=== PATIENT | female | born 1950 | race Caucasian/White ===

== ENCOUNTER → 2017-05-03 | Outpatient (CLI) | payer MEDICARE ==
--- NOTE | 2017-05-07 09:01 | MM ---
Reason for exam: screening (asymptomatic). Last mammogram was performed 2 years and 11 months ago. History: Patient is postmenopausal. Family history of breast cancer in mother. Took estrogen for 20 years beginning at age 33. Took progesterone for 20 years beginning at age 33. Physical Findings: A clinical breast exam by your physician is recommended on an annual basis and results should be correlated with mammographic findings. MG 3D Screening Mammo W/Cad Bilateral CC and MLO view(s) were taken. Prior study comparison: June 01, 2014, right breast MG work up mamm w CAD RT. May 27, 2014, bilateral MG screening mammo w CAD. There are scattered fibroglandular densities. No suspicious findings. No significant changes when compared with prior studies. ASSESSMENT: Negative, BI-RAD 1 RECOMMENDATION: Routine screening mammogram of both breasts in 1 year.
== END | disposition home or self-care (01) ==
LOC: RADMAMWWP 09:45
PROVIDERS: ATTEND Family Medicine
DX: Z12.31 Encounter for screening mammogram for malignant neoplasm of breast (principal)
CPT/HCPCS: 77063; G0202

== ENCOUNTER → 2018-05-26 | Outpatient (CLI) | payer MEDICARE ==
--- NOTE | 2018-05-28 09:48 | MM ---
Reason for exam: screening (asymptomatic). Last mammogram was performed 1 year and 1 month ago. History: Patient is postmenopausal. Family history of breast cancer in mother. Took estrogen for 20 years beginning at age 33. Took progesterone for 20 years beginning at age 33. Physical Findings: A clinical breast exam by your physician is recommended on an annual basis and results should be correlated with mammographic findings. MG 3D Screening Mammo W/Cad Bilateral CC and MLO view(s) were taken. Prior study comparison: May 03, 2017, bilateral MG 3d screening mammo w/cad. June 01, 2014, right breast MG work up mamm w CAD RT. There are scattered fibroglandular densities. Benign oil cysts on the left. No significant changes when compared with prior studies. ASSESSMENT: Negative, BI-RAD 1 RECOMMENDATION: Routine screening mammogram of both breasts in 1 year.
== END | disposition home or self-care (01) ==
LOC: RADMAMWWP 06:45
PROVIDERS: ATTEND Family Medicine
DX: Z12.31 Encounter for screening mammogram for malignant neoplasm of breast (principal)
CPT/HCPCS: 77063; 77067

== ENCOUNTER → 2019-07-29 | Outpatient (CLI) | payer MEDICARE ==
--- NOTE | 2019-07-31 11:12 | MM ---
Reason for exam: screening (asymptomatic). Last mammogram was performed 1 year and 2 months ago. History: Patient is postmenopausal. Family history of breast cancer in mother. Took estrogen for 20 years beginning at age 33. Took progesterone for 20 years beginning at age 33. Physical Findings: A clinical breast exam by your physician is recommended on an annual basis and results should be correlated with mammographic findings. MG 3D Screening Mammo W/Cad Bilateral CC and MLO view(s) were taken. Prior study comparison: May 26, 2018, bilateral MG 3d screening mammo w/cad. May 03, 2017, bilateral MG 3d screening mammo w/cad. There are scattered fibroglandular densities. There is no discrete abnormality. No significant changes when compared with prior studies. ASSESSMENT: Negative, BI-RAD 1 RECOMMENDATION: Routine screening mammogram of both breasts in 1 year.
== END | disposition home or self-care (01) ==
LOC: RADMAMWWP 06:49
PROVIDERS: ATTEND Family Medicine
DX: Z12.31 Encounter for screening mammogram for malignant neoplasm of breast (principal); Z80.3 Family history of malignant neoplasm of breast
CPT/HCPCS: 77063; 77067

== ENCOUNTER → 2021-01-31 | Outpatient (CLI) | payer MEDICARE ==
--- NOTE | 2021-02-01 11:24 | MM ---
Reason for exam: screening (asymptomatic). Last mammogram was performed 1 year and 6 months ago. History: Patient is postmenopausal. Family history of breast cancer in mother. Took estrogen for 20 years beginning at age 33. Took progesterone for 20 years beginning at age 33. Physical Findings: A clinical breast exam by your physician is recommended on an annual basis and results should be correlated with mammographic findings. MG 3D Screening Mammo W/Cad Bilateral CC, MLO, and XCCL view(s) were taken. Prior study comparison: July 29, 2019, bilateral MG 3d screening mammo w/cad. May 26, 2018, bilateral MG 3d screening mammo w/cad. There are scattered fibroglandular densities. Stable benign calcifications. No significant changes when compared with prior studies. ASSESSMENT: Benign, BI-RAD 2 RECOMMENDATION: Routine screening mammogram of both breasts in 1 year.
== END | disposition home or self-care (01) ==
LOC: RADMAMWWP 07:06
PROVIDERS: ATTEND Family Medicine
DX: Z12.31 Encounter for screening mammogram for malignant neoplasm of breast (principal); Z80.3 Family history of malignant neoplasm of breast; Z78.0 Asymptomatic menopausal state
CPT/HCPCS: 77063; 77067

== ENCOUNTER 2022-07-17 09:53 | Inpatient (IN) | payer MEDICARE ==
[2022-07-17] MEDS ORDERED: SODIUM CHLORIDE 0.9% 500 ML 500 ML IV STA (10:12)
[2022-07-17] MEDS ORDERED: FAMOTIDINE 20 MG/2 ML VIAL IV STA (10:13)
--- NOTE | 2022-07-17 10:16 | ED ---
General Adult HPI - General Chief complaint: Abdominal Pain Stated complaint: abd pain Time Seen by Provider: 07/17/22 10:03 Source: patient, EMS, RN notes reviewed Mode of arrival: EMS Limitations: no limitations - History of Present Illness Initial comments: Patient is a pleasant 71-year-old female presenting to the emergency department with concerns of abdominal discomfort. Onset of symptoms was around midnight. Discomfort has been persistent. Discomfort has significantly improved with pain medication by EMS and patient is comfortable at this time. No nausea vomiting. No constipation or diarrhea. No fevers. Patient does have history of previous hernia surgeries. - Related Data Home Medications Medication Instructions Recorded Confirmed Cholecalciferol [Vitamin D3 (25 50 mcg PO DAILY 07/17/22 07/17/22 Mcg = 1000 Iu)] Levothyroxine Sodium [Euthyrox] 137 mcg PO DAILY 07/17/22 07/17/22 Lisinopril-Hctz 10-12.5 mg 1 tab PO DAILY 07/17/22 07/17/22 [Zestoretic 10-12.5] atenoloL [Tenormin] 25 mg PO BID 07/17/22 07/17/22 Allergies Allergy/AdvReac Type Severity Reaction Status Date / Time Penicillins Allergy Unknown Verified 12/12/14 17:44 Sulfa (Sulfonamide Allergy Unknown Verified 12/12/14 22:21 Antibiotics) Review of Systems ROS Statement: Those systems with pertinent positive or pertinent negative responses have been documented in the HPI. ROS Other: All systems not noted in ROS Statement are negative. Constitutional: Denies: fever Eyes: Denies: eye pain ENT: Denies: ear pain Respiratory: Denies: cough Cardiovascular: Denies: chest pain Endocrine: Denies: fatigue Gastrointestinal: Reports: as per HPI, abdominal pain. Denies: nausea, vomiting Genitourinary: Denies: dysuria Musculoskeletal: Denies: back pain Skin: Denies: rash Neurological: Denies: weakness Past Medical History Past Medical History: Hypertension, Thyroid Disorder Additional Past Medical History / Comment(s): Hernias History of Any Multi-Drug Resistant Organisms: None Reported Past Surgical History: Section, Cholecystectomy, Hernia Repair Additional Past Surgical History / Comment(s): thyroidectomy Past Psychological History: No Psychological Hx Reported Past Alcohol Use History: None Reported Past Drug Use History: None Reported General Exam Limitations: no limitations General appearance: alert, in no apparent distress Head exam: Present: normocephalic Eye exam: Present: normal appearance Neck exam: Present: normal inspection Respiratory exam: Present: normal lung sounds bilaterally Cardiovascular Exam: Present: regular rate, normal rhythm Expanded Peripheral pulses: 2+: Posterior Tibialis (R), Posterior Tibialis (L) GI/Abdominal exam: Present: soft, tenderness (Mild diffuse tenderness). Absent: distended Back exam: Present: normal inspection Neurological exam: Present: alert Psychiatric exam: Present: normal affect, normal mood Skin exam: Present: normal color Course Vital Signs 07/17/22 07/17/22 10:03 10:07 Temperature 98.8 F Pulse Rate 74 Respiratory 18 Rate Blood Pressure 141/82 O2 Sat by Pulse 94 L Oximetry EKG Findings - EKG Comments: EKG Findings:: Sinus rhythm rate 70. CO 174. QRS 103. QT 386. QTc 407. Left axis. LVH criteria. Poor R-wave progression. No acute ST change. Medical Decision Making - Medical Decision Making Patient was reevaluated and updated. Case discussed with Dr. Quiroga, who did evaluate patient and will admit covering hospital call. He does recommend NG tube. - Lab Data Result diagrams: 07/17/22 10:20 07/17/22 10:20 Lab Results 07/17/22 07/17/22 07/17/22 Range/Units 10:20 10:20 10:20 WBC 14.7 H (3.8-10.6) k/uL RBC 5.78 H (3.80-5.40) m/uL Hgb 17.6 H (11.4-16.0) gm/dL Hct 52.3 H (34.0-46.0) % MCV 90.4 (80.0-100.0) fL MCH 30.4 (25.0-35.0) pg MCHC 33.6 (31.0-37.0) g/dL RDW 13.7 (11.5-15.5) % Plt Count 323 (150-450) k/uL MPV 8.2 Neutrophils % 90 % Lymphocytes % 5 % Monocytes % 3 % Eosinophils % 1 % Basophils % 0 % Neutrophils # 13.2 H (1.3-7.7) k/uL Lymphocytes # 0.7 L (1.0-4.8) k/uL Monocytes # 0.5 (0-1.0) k/uL Eosinophils # 0.1 (0-0.7) k/uL Basophils # 0.1 (0-0.2) k/uL PT 12.2 H (9.0-12.0) sec INR 1.2 H (<1.2) APTT 27.5 (22.0-30.0) sec Sodium 137 (137-145) mmol/L Potassium 4.0 (3.5-5.1) mmol/L Chloride 98 (98-107) mmol/L Carbon Dioxide 24 (22-30) mmol/L Anion Gap 15 mmol/L BUN 22 H (7-17) mg/dL Creatinine 0.55 (0.52-1.04) mg/dL Est GFR (CKD-EPI)AfAm >90 (>60 ml/min/1.73 sqM) Est GFR (CKD-EPI)NonAf >90 (>60 ml/min/1.73 sqM) Glucose 157 H (74-99) mg/dL Calcium 10.6 H (8.4-10.2) mg/dL Total Bilirubin 1.8 H (0.2-1.3) mg/dL AST 56 H (14-36) U/L ALT 57 H (4-34) U/L Alkaline Phosphatase 110 (38-126) U/L Total Protein 7.7 (6.3-8.2) g/dL Albumin 4.9 (3.5-5.0) g/dL Amylase 62 (30-110) U/L Lipase 179 (23-300) U/L - Radiology Data Radiology results: report reviewed (As discussed with radiologist there is concern for hernia and bowel obstruction) Disposition Clinical Impression: Bowel obstruction, Ventral hernia Disposition: ADMITTED IP TO THIS HOSP Is patient prescribed a controlled substance at d/c from ED?: No Referrals: Sal Zapien MD [Primary Care Provider] - 1-2 days Time of Disposition: 11:46
[2022-07-17 10:28] LABS: Basophils # (A) 0.1 k/uL (0-0.2); Basophils % (A) 0 %; Eosinophils # (A) 0.1 k/uL (0-0.7); Eosinophils % (A) 1 %; HCT 52.3 % (34.0-46.0); HGB 17.6 gm/dL (11.4-16.0); Lymphocytes # (A) 0.7 k/uL (1.0-4.8); Lymphocytes % (A) 5 %; MCH 30.4 pg (25.0-35.0); MCHC 33.6 g/dL (31.0-37.0); MCV 90.4 fL (80.0-100.0); Mean Platelet Volume 8.2; Monocytes # (A) 0.5 k/uL (0-1.0); Monocytes % (A) 3 %; Neutrophils # (A) 13.2 k/uL (1.3-7.7); Neutrophils % (A) 90 %; Platelet Count 323 k/uL (150-450); RBC 5.78 m/uL (3.80-5.40); RDW 13.7 % (11.5-15.5); WBC 14.7 k/uL (3.8-10.6)
[2022-07-17 10:39] LABS: ALT 57 U/L (4-34); AST 56 U/L (14-36); African American GFR (CKD) >90 (>60 ml/min/1.73 sqM); Albumin 4.9 g/dL (3.5-5.0); Alkaline Phosphatase 110 U/L (38-126); Amylase 62 U/L (30-110); Anion Gap 15 mmol/L; Blood Urea Nitrogen 22 mg/dL (7-17); Calcium 10.6 mg/dL (8.4-10.2); Carbon Dioxide 24 mmol/L (22-30); Chloride 98 mmol/L (98-107); Glucose 157 mg/dL (74-99); Lipase 179 U/L (23-300); Non-African American GFR(CKD) >90 (>60 ml/min/1.73 sqM); Sodium 137 mmol/L (137-145); Total Bilirubin 1.8 mg/dL (0.2-1.3); Total Protein 7.7 g/dL (6.3-8.2)
[2022-07-17 10:55] LABS: INR 1.2 (<1.2); Partial Thromboplastin Time 27.5 sec (22.0-30.0); Prothrombin Time 12.2 sec (9.0-12.0)
[2022-07-17] MEDS ORDERED: NALOXONE 0.4 MG/ML 1 ML VIAL IV PRN ×2 (11:46→18:08)
[2022-07-17] MEDS ORDERED: ONDANSETRON 4 MG/2 ML VIAL IVP PRN (11:46)
--- NOTE | 2022-07-17 11:53 | CT ---
EXAMINATION TYPE: CT abdomen pelvis w con DATE OF EXAM: 07/17/2022 COMPARISON: CT 12/12/2014 HISTORY: abdominal pain CT DLP: 1789.5 mGycm Automated exposure control for dose reduction was used. TECHNIQUE: Helical acquisition of images from the lung bases through the pelvis have been completed. CONTRAST: Performed without Oral Contrast and with IV Contrast, patient injected with 100 mL of Isovue 300. FINDINGS: Anterior abdominal wall hernia is present towards the level the umbilicus. Transition point of patient's small bowel obstruction is within the hernia. There is fluid present. Mesenteric vessel s are also present, there is a swirled appearance. Caliber change is noted within the hernia. Hernia mouth is wide. Stomach is fluid-filled. LUNG BASES: Some basilar atelectatic changes are present.. AORTA: No significant abnormality is appreciated. LIVER/GB: Liver shows low attenuation. Gallbladder is absent. There is eventration of the right hemid iaphragm, liver is enlarged. PANCREAS: No significant abnormality is seen. SPLEEN: No significant abnormality is seen. ADRENALS: No significant abnormality is seen. KIDNEYS: No significant abnormality is seen. REPRODUCTIVE ORGANS: Not seen BOWEL: Dilated extending into the hernia with fluid-filled appearance. Decompressed more distally. P ostop changes are noted to the bowel. FREE AIR: No Free Air visible. ASCITES: None visible. PELVIC ADENOPATHY: None visualized. RETROPERITONEAL ADENOPATHY: No Retroperitoneal Adenopathy visible. URINARY BLADDER: No significant abnormality is seen. OSSEOUS STRUCTURES: No significant abnormality is seen. IMPRESSION: FINDINGS CONSISTENT WITH SMALL BOWEL OBSTRUCTION WITH TRANSITION POINT WITHIN THE ABDOMINAL WALL OSIEL IA ANTERIORLY, HERNIA APPEARS WIDE. Report relayed to the referring clinician after interpretation of the exam
[2022-07-17] MEDS: SODIUM CHLORIDE 0.9% 1,000 ML IV SCH ×2 (12:25→22:00)
[2022-07-17] MEDS: HYDROmorphone 0.5 MG/0.5 ML SYRINGE IVP PRN (12:25)
--- NOTE | 2022-07-17 13:06 | P.GSHP ---
History of Present Illness H&P Date: 07/17/22 CHIEF COMPLAINT: Abdominal pain HISTORY OF PRESENT ILLNESS: This is a 71-year-old female who presented to hospital with complaints of lower abdominal pain that started around midnight last night. Her pain has become persistent. She denies any nausea or vomiting. Patient reports having had 6 hernia surgeries. In 2014 she required an incisional hernia repair with bowel resection. She's had prior bowel obstructions. Most of her pain is currently located in the right lower abdomen there is evidence of an incisional hernia on exam. Computed tomography scan abdomen and pelvis findings consistent with small bowel obstruction with transition point within the abdominal wall hernia anteriorly. There is evidence of bowel in the hernia. Patient seen and examined with Dr. hernandez in the ER PAST MEDICAL HISTORY: Hypertension, hypothyroidism, hernias PAST SURGICAL HISTORY: , cholecystectomy and multiple hernia repairs, thyroidectomy MEDICATIONS: See list. ALLERGIES: See list. SOCIAL HISTORY: No illicit drug use. REVIEW OF SYSTEMS: CONSTITUTIONAL: Denies fever or chills. HEENT: Denies blurred vision, vision changes, or eye pain. Denies hemoptysis CARDIOVASCULAR: Denies chest pain or pressure. RESPIRATORY: No shortness of breath. GASTROINTESTINAL: See HPI for pertinent findings HEMATOLOGIC: Denies bleeding disorders. GENITOURINARY: Denies any blood in urine or increased urinary frequency. SKIN: Denies pruitis. Denies rash. PHYSICAL EXAM: VITAL SIGNS: Reviewed GENERAL: Well-developed in no acute distress. HEENT: No sclera icterus. Extraocular movements grossly intact. Moist buccal mucosa. Head is atraumatic, normocephalic. No nasal drainage. ABDOMEN: Soft.Nondistended. Evidence of hernia bulge at the midline incision more towards the right side. Tenderness to palpation of the right lower abdomen NEUROLOGIC: Alert and oriented. Cranial nerves II through XII grossly intact. LABORATORY DATA: WBC is 14.7 and Hgb 17.6 platelets 323 INR 1.2 Sodium is 137 potassium is 4.0 creatinine 0.55 Glucose is 157 Total bilirubin 1.8 AST 56 ALT is 57 Lipase 170 IMAGING: Computed tomography scan as stated above ASSESSMENT: 1. Incarcerated small bowel obstruction secondary to incisional hernia 2. Multiple abdominal incisional hernia repairs 3. History of bowel obstructions 4. History of multiple abdominal surgeries PLAN: -Patient scheduled for repair of incisional hernia today with Dr. hernandez -Keep patient nothing by mouth -Place NG tube for decompression -Continue IV fluids -Continue supportive care -Consult medicine service for medical management Physician Corduroy Brusher Operator note has been reviewed by physician. Signing provider agrees with the documented findings, assessment, and plan of care. Past Medical History Past Medical History: Hypertension, Thyroid Disorder Additional Past Medical History / Comment(s): Hernias History of Any Multi-Drug Resistant Organisms: None Reported Past Surgical History: Section, Cholecystectomy, Hernia Repair Additional Past Surgical History / Comment(s): thyroidectomy Past Psychological History: No Psychological Hx Reported Past Alcohol Use History: None Reported Past Drug Use History: None Reported Medications and Allergies Home Medications Medication Instructions Recorded Confirmed Type Cholecalciferol [Vitamin D3 (25 50 mcg PO DAILY 07/17/22 07/17/22 History Mcg = 1000 Iu)] Levothyroxine Sodium [Euthyrox] 137 mcg PO DAILY 07/17/22 07/17/22 History Lisinopril-Hctz 10-12.5 mg 1 tab PO DAILY 07/17/22 07/17/22 History [Zestoretic 10-12.5] atenoloL [Tenormin] 25 mg PO BID 07/17/22 07/17/22 History Allergies Allergy/AdvReac Type Severity Reaction Status Date / Time Penicillins Allergy Unknown Verified 12/12/14 17:44 Sulfa (Sulfonamide Allergy Unknown Verified 12/12/14 22:21 Antibiotics) Surgical - Exam Vital Signs Pulse Resp BP Pulse Ox 74 18 141/82 94 L 07/17/22 10:03 07/17/22 10:03 07/17/22 10:03 07/17/22 10:03 Results - Labs 07/17/22 10:20 07/17/22 10:20 Abnormal Lab Results - Last 24 Hours (Table) 07/17/22 07/17/22 07/17/22 Range/Units 10:20 10:20 10:20 WBC 14.7 H (3.8-10.6) k/uL RBC 5.78 H (3.80-5.40) m/uL Hgb 17.6 H (11.4-16.0) gm/dL Hct 52.3 H (34.0-46.0) % Neutrophils # 13.2 H (1.3-7.7) k/uL Lymphocytes # 0.7 L (1.0-4.8) k/uL PT 12.2 H (9.0-12.0) sec INR 1.2 H (<1.2) BUN 22 H (7-17) mg/dL Glucose 157 H (74-99) mg/dL Calcium 10.6 H (8.4-10.2) mg/dL Total Bilirubin 1.8 H (0.2-1.3) mg/dL AST 56 H (14-36) U/L ALT 57 H (4-34) U/L Diabetes panel 07/17/22 Range/Units 10:20 Sodium 137 (137-145) mmol/L Potassium 4.0 (3.5-5.1) mmol/L Chloride 98 (98-107) mmol/L Carbon Dioxide 24 (22-30) mmol/L BUN 22 H (7-17) mg/dL Creatinine 0.55 (0.52-1.04) mg/dL Glucose 157 H (74-99) mg/dL Calcium 10.6 H (8.4-10.2) mg/dL AST 56 H (14-36) U/L ALT 57 H (4-34) U/L Alkaline Phosphatase 110 (38-126) U/L Total Protein 7.7 (6.3-8.2) g/dL Albumin 4.9 (3.5-5.0) g/dL Calcium panel 07/17/22 Range/Units 10:20 Calcium 10.6 H (8.4-10.2) mg/dL Albumin 4.9 (3.5-5.0) g/dL Pituitary panel 07/17/22 Range/Units 10:20 Sodium 137 (137-145) mmol/L Potassium 4.0 (3.5-5.1) mmol/L Chloride 98 (98-107) mmol/L Carbon Dioxide 24 (22-30) mmol/L BUN 22 H (7-17) mg/dL Creatinine 0.55 (0.52-1.04) mg/dL Glucose 157 H (74-99) mg/dL Calcium 10.6 H (8.4-10.2) mg/dL Adrenal panel 07/17/22 Range/Units 10:20 Sodium 137 (137-145) mmol/L Potassium 4.0 (3.5-5.1) mmol/L Chloride 98 (98-107) mmol/L Carbon Dioxide 24 (22-30) mmol/L BUN 22 H (7-17) mg/dL Creatinine 0.55 (0.52-1.04) mg/dL Glucose 157 H (74-99) mg/dL Calcium 10.6 H (8.4-10.2) mg/dL Total Bilirubin 1.8 H (0.2-1.3) mg/dL AST 56 H (14-36) U/L ALT 57 H (4-34) U/L Alkaline Phosphatase 110 (38-126) U/L Total Protein 7.7 (6.3-8.2) g/dL Albumin 4.9 (3.5-5.0) g/dL
--- NOTE | 2022-07-17 13:19 | XR ---
EXAMINATION TYPE: XR chest 1V confirm line [facility] DATE OF EXAM: 07/17/2022 COMPARISON: None HISTORY: 71-year-old female NG tube placement TECHNIQUE: Single frontal view of the chest is obtained. FINDINGS: NG tube courses below the diaphragm. Heart mildly enlarged. Diffuse interstitial and vascu lar prominence. No consolidation or pleural effusion. IMPRESSION: 1. NG tube appears satisfactory. 2. Similar mild cardiomegaly and interstitial/vascular prominence. Correlate to exclude mild pulmonar y vascular congestion.
[2022-07-17] MEDS ORDERED: IV FLUID CONTINUATION 1,000 ML IV ONE (16:38)
[2022-07-17] MEDS ORDERED: HEPARIN SODIUM,PORCINE/PF 5,000 UNIT/0.5 ML SYRINGE SQ ONE (16:39)
[2022-07-17] MEDS ORDERED: MIDAZOLAM 2 MG/2 ML VIAL ONE (17:09)
[2022-07-17] MEDS ORDERED: ROCURONIUM 10 MG/ML (5 ML VIAL) IV ONE (17:09)
[2022-07-17] MEDS ORDERED: PROPOFOL 10 MG/ML 20 ML VIAL IV ONE (17:09)
[2022-07-17] MEDS ORDERED: GLYCOPYRROLATE 0.2 MG/ML 2 ML VIAL ONE (17:09)
[2022-07-17] MEDS ORDERED: SUCCINYLCHOLINE CHLORIDE 200 MG/10 ML VIAL IV ONE (17:09)
[2022-07-17] MEDS ORDERED: NEOSTIGMINE 1 MG/ML 10 ML VIAL ONE (17:09)
[2022-07-17] MEDS ORDERED: fentaNYL (PF) 50 MCG/ML 2 ML AMP ONE (17:09)
[2022-07-17] MEDS ORDERED: LIDOCAINE 2% INJ 20 MG/ML (2 ML VIAL) ONE (17:09)
[2022-07-17] MEDS ORDERED: PHENYLEPHRINE-0.9% NACL SYG 1,000 MCG/10 ML SYRINGE ONE (17:09)
--- NOTE | 2022-07-17 18:07 | P.OP ---
Date of Procedure: 07/17/22 Preoperative Diagnosis: Small bowel obstruction Incarcerated incisional hernia Postoperative Diagnosis: Same Procedure(s) Performed: Exploratory laparotomy Lysis of adhesions Repair of incarcerated incisional hernia Anesthesia: ADRYAN Surgeon: Ike Quiroga Estimated Blood Loss (ml): 25 Pathology: none sent Condition: stable Disposition: PACU Description of Procedure: The patient's placed on the operating table in the supine position. She received general endotracheal tube as a. Her abdomen was prepped and draped usual sterile fashion. The patient obvious incarcerated incisional hernia located in the lower part of her midline scar. The skin was incised and then using left cautery and sharp dissection the hernia sac was dissected free from the subcutaneous tissue. Her site was then opened. There was incarcerated small bowel within the hernia. Small bowel was adherent to the mouth the hernia causing a lead point for obstruction. This was lysed with sharp dissection. After the enterolysis performed. The hernia defect was visualized. It was quite large. The small bowel was then run. There is no other obstruction seen. The hernia defect was then closed using. 0 Ethibond suture and the #1 John fix suture. Decided not to place mesh due to the possibility of infection from the inflamed bowel. This point the subcutaneous tissues were irrigated. The skin was closed with yuly. Patient top she will was sent to recovery room in stable condition.
[2022-07-17] MEDS ORDERED: LACTATED RINGERS 1,000 ML IV ONE (18:08)
[2022-07-17] MEDS ORDERED: HYDROmorphone 0.5 MG/0.5 ML SYRINGE IVP ONE ×2 (18:30→18:50)
[2022-07-17] MEDS: DOCUSATE 100 MG CAP PO SCH (22:07)
[2022-07-17] MEDS: KETOROLAC 15 MG/ML 1 ML VIAL IVP SCH (23:38)
[2022-07-18] MEDS: HYDROmorphone 1 MG/ML 1 ML SYRINGE IVP PRN (03:29)
[2022-07-18] MEDS: SODIUM CHLORIDE 0.9% 1,000 ML IV SCH ×3 (06:28→20:10)
[2022-07-18] MEDS: KETOROLAC 15 MG/ML 1 ML VIAL IVP SCH ×4 (06:28→23:43)
--- NOTE | 2022-07-18 08:34 | P.CONS ---
History of Present Illness - History of Present Illness This is a pleasant 71 years old female with past medical history of hypertension Patient has history of multiple surgeries, presents because of abdominal pain. Patient was found to have bowel obstruction secondary to incarcerated hernia and she was taken to emergency exploratory laparotomy with hernia repair. Today is postoperative day #1, she is lying in bed comfortable, she looks a pleasant and smiling, she still complains from some abdominal pain and she looks tired but she says it's much better than when she came in, her main concerns are bothering her is the NG tube which is showing only minimal greenish discharge. She denies chest pain or dyspnea. No headache or weakness or numbness. No urinary complaints. No fever She denies smoking, alcohol or illicit drugs Vitas looks stable Labs showing mild leukocytosis and mildly elevated liver enzymes, WBC is 14.7, AST is 56 and ALT 57 while total albumin is 1.8. Lipase is normal. Chest x-ray showing no acute pulmonary process. NG tube appears satisfactory in a Place and there is similar mild cardiomegaly and interstitial vascular prominence. Brian Lexa to exclude mild pulmonary vascular congestion. CT of the abdomen and pelvis: Anterior abdominal wall hernia is present towards the level of the umbilicus. Transition point of patient small bowel obstruction is within the hernia. There is fluid present. Mesenteric vessels are also present. There is as whirled appearance. Mac changes is noted within the hernia. Hernia mouth is wide. Stomach is fluid-filled. Lung bases some basilar atelectasis changes are present. Aorta no significant abnormality is appreciated. Liver shows low attenuation. Gallbladder is absent. Pancreas, spleen and adrenal show no significant changes. Findings is consistent with small bowel obstructions with transition point within the abdominal wall hernia anteriorly. Hernia appears wide. Reported related to referred clinical after interpretation of the exam. Review of Systems Review of systems CONSTITUTIONAL: No fever, no malaise, no fatigue. HEENT: No recent visual problems or hearing problems. Denied any sore throat. CARDIOVASCULAR: No orthopnea, PND, no palpitations, no syncope. PULMONARY: No shortness of breath, no cough, no hemoptysis. GASTROINTESTINAL: No diarrhea, no nausea. NEUROLOGICAL: No headaches, no weakness, no numbness. HEMATOLOGICAL: Denies any bleeding or petechiae. GENITOURINARY: Denies any burning micturition, frequency, or urgency. MUSCULOSKELETAL/RHEUMATOLOGICAL: Denies any joint pain, swelling, or any muscle pain. ENDOCRINE: Denies any polyuria or polydipsia. Past Medical History Past Medical History: Hypertension, Thyroid Disorder Additional Past Medical History / Comment(s): Hernias History of Any Multi-Drug Resistant Organisms: None Reported Past Surgical History: Section, Cholecystectomy, Hernia Repair Additional Past Surgical History / Comment(s): thyroidectomy Past Anesthesia/Blood Transfusion Reactions: No Reported Reaction Past Psychological History: No Psychological Hx Reported Smoking Status: Never smoker Past Alcohol Use History: None Reported Past Drug Use History: None Reported Medications and Allergies Home Medications Medication Instructions Recorded Confirmed Type Cholecalciferol [Vitamin D3 (25 50 mcg PO DAILY 07/17/22 07/17/22 History Mcg = 1000 Iu)] Levothyroxine Sodium [Euthyrox] 137 mcg PO DAILY 07/17/22 07/17/22 History Lisinopril-Hctz 10-12.5 mg 1 tab PO DAILY 07/17/22 07/17/22 History [Zestoretic 10-12.5] atenoloL [Tenormin] 25 mg PO BID 07/17/22 07/17/22 History Allergies Allergy/AdvReac Type Severity Reaction Status Date / Time Penicillins Allergy Unknown Verified 12/12/14 17:44 Sulfa (Sulfonamide Allergy Unknown Verified 12/12/14 22:21 Antibiotics) Physical Exam Vitals: Vital Signs Temp Pulse Pulse Pulse Resp BP BP 07/18/22 01:47 98.3 F 75 17 122/72 07/17/22 21:57 89 121/77 07/17/22 21:43 73 131/71 07/17/22 21:28 70 132/78 07/17/22 21:12 72 126/75 07/17/22 20:57 75 122/71 07/17/22 20:43 72 126/62 07/17/22 20:28 70 132/78 07/17/22 20:13 69 125/66 07/17/22 19:58 64 132/79 07/17/22 19:45 67 134/68 07/17/22 19:15 72 16 138/68 07/17/22 18:55 59 L 16 154/75 07/17/22 18:40 59 L 16 157/67 07/17/22 18:25 99.4 F 69 14 159/78 07/17/22 16:25 98 F 78 16 136/87 07/17/22 12:27 77 16 135/84 07/17/22 10:07 98.8 F 07/17/22 10:03 74 18 141/82 Pulse Ox 07/18/22 01:47 95 07/17/22 21:57 96 07/17/22 21:43 97 07/17/22 21:28 97 07/17/22 21:12 97 07/17/22 20:57 95 07/17/22 20:43 95 07/17/22 20:28 95 07/17/22 20:13 95 07/17/22 19:58 94 L 07/17/22 19:45 89 L 07/17/22 19:15 95 07/17/22 18:55 96 07/17/22 18:40 95 07/17/22 18:25 97 07/17/22 16:25 95 07/17/22 12:27 94 L 07/17/22 10:07 07/17/22 10:03 94 L Intake and Output 07/17/22 07/18/22 07/18/22 22:59 06:59 14:59 Intake Total 850 1000 Output Total 525 Balance 325 1000 Intake: IV 850 Intake, IV Titration 1000 Amount Lactated Ringers 1,000 ml 1000 @ 125 mls/hr IV .Q8H ONE Rx#:[id number] Output: Gastric Drainage 300 Urine 200 Estimated Blood Loss 25 Other: # Voids 1 1 Weight 88.451 kg GENERAL: The patient is alert and oriented x3, not in any acute distress. Well developed, well nourished. HEENT: Pupils are round and equally reacting to light. EOMI. No scleral icterus. No conjunctival pallor. Normocephalic, atraumatic. No pharyngeal erythema. No thyromegaly. CARDIOVASCULAR: S1 and S2 present. No murmurs, rubs, or gallops. PULMONARY: Chest is clear to auscultation, no wheezing or crackles. -ABDOMEN: Soft, Midline vertical surgical incisional wound with dressing on a Place expected surrounding tenderness, nondistended, normoactive bowel sounds. No palpable organomegaly. MUSCULOSKELETAL: No joint swelling or deformity. EXTREMITIES: No cyanosis, clubbing, or pedal edema. NEUROLOGICAL: Gross neurological examination did not reveal any focal deficits. SKIN: No rashes. no petechiae. Results CBC & Chem 7: 07/17/22 10:20 07/17/22 10:20 Labs: Abnormal Lab Results - Last 24 Hours (Table) 07/17/22 07/17/22 07/17/22 Range/Units 10:20 10:20 10:20 WBC 14.7 H (3.8-10.6) k/uL RBC 5.78 H (3.80-5.40) m/uL Hgb 17.6 H (11.4-16.0) gm/dL Hct 52.3 H (34.0-46.0) % Neutrophils # 13.2 H (1.3-7.7) k/uL Lymphocytes # 0.7 L (1.0-4.8) k/uL PT 12.2 H (9.0-12.0) sec INR 1.2 H (<1.2) BUN 22 H (7-17) mg/dL Glucose 157 H (74-99) mg/dL Calcium 10.6 H (8.4-10.2) mg/dL Total Bilirubin 1.8 H (0.2-1.3) mg/dL AST 56 H (14-36) U/L ALT 57 H (4-34) U/L Assessment and Plan Assessment: Acute bowel obstruction secondary to incarcerated incisional hernia status post exploratory laparotomy and hernia repair with lysis of adhesions Mild transaminitis. obesity with BMI of 32.4 Plan: This is a pleasant 71 years old female who presents with incarcerated hernia status post hernia repair today's postop day #1. Keep bowel rest Surgery primary team on the case Pain management Continue with gentle hydration Labs and medication were reviewed.. Continue same treatment. Continue with symptomatic treatment. Resume home medication. Monitor lytes and vitals. DVT and GI prophylaxis. Further recommendations as per clinical course of the patient DVT prophylaxis: Subcutaneous Lovenox GI Prophylaxis: Protonix PT/OT: Pending Thank you for consulting us and we will follow up with you
[2022-07-18] MEDS: PANTOPRAZOLE 40 MG/10 ML VIAL IV SCH (10:20)
[2022-07-18] MEDS: ENOXAPARIN 40 MG/0.4 ML SYRINGE SQ SCH (10:20)
[2022-07-18] MEDS: DOCUSATE 100 MG CAP PO SCH ×2 (10:20→20:10)
[2022-07-18 10:51] LABS: Basophils # (A) 0.04 X 10*3/uL (0.00-0.10); Basophils % (A) 0.3 %; Eosinophils # (A) 0.04 X 10*3/uL (0.04-0.35); Eosinophils % (A) 0.3 %; HCT 45.5 % (37.2-46.3); HGB 14.6 g/dL (12.0-15.0); Immature Grans, Automated 0.4 %; Lymphocytes # (A) 1.45 X 10*3/uL (0.90-5.00); Lymphocytes % (A) 10.4 %; MCH 29.3 pg (27.0-32.0); MCHC 32.1 g/dL (32.0-37.0); MCV 91.2 fL (80.0-97.0); Mean Platelet Volume 10.4 fL (9.5-12.2); Monocytes # (A) 1.29 X 10*3/uL (0.20-1.00); Monocytes % (A) 9.2 %; NRBC Per 100 WBC 0 /100 WBCS (0.0-0.0); Neutrophils # (A) 11.11 X 10*3/uL (1.80-7.70); Neutrophils % (A) 79.4 %; Platelet Count 281 X 10*3/uL (140-440); RBC 4.99 X 10*6/uL (4.10-5.20); RDW 14.9 % (11.5-14.5); WBC 13.98 X 10*3/uL (4.50-10.00)
[2022-07-18 11:08] LABS: African American GFR (CKD) 101.7 (60.0-200.0); Albumin 3.5 g/dL (3.8-4.9); Albumin/Globulin Ratio 1.75 (1.60-3.17); Anion Gap 7.3 mmol/L (10.00-18.00); BUN/Creat Ratio 31.14 Ratio (12.00-20.00); Blood Urea Nitrogen 21.8 mg/dL (9.0-27.0); Carbon Dioxide 28.7 mmol/L (20.0-27.5); Non-African American GFR(CKD) 87.8 (60.0-200.0); Potassium 4.1 mmol/L (3.5-5.5); Total Bilirubin 1.4 mg/dL (0.30-1.20); Total Protein 5.5 g/dL (6.2-8.2)
--- NOTE | 2022-07-18 14:14 | P.PN ---
Subjective Progress Note Date: 07/18/22 CHIEF COMPLAINT: Small bowel obstruction HISTORY OF PRESENT ILLNESS: Patient is POD #1, status post exploratory laparotomy, lysis of adhesions and repair of incarcerated incisional hernia for small bowel obstruction and incarcerated small bowel within the incisional hernia. Patient reports she is feeling better today. Her pain is controlled. She has NG tube in place. Afebrile. WBC is down from 14.7-13.98 Hgb is 14.6 platelets 281 sodium is 141 potassium 4.1 creatinine 0.7 Patient seen and examined with Dr. hernandez PHYSICAL EXAM: VITAL SIGNS: Reviewed. GENERAL: Well-developed in no acute distress. HEENT: No sclera icterus. Extraocular movements grossly intact. Moist buccal mucosa. Head is atraumatic, normocephalic. ABDOMEN: Soft. Nondistended. Incision dressing clean dry and intact NEUROLOGIC: Alert and oriented. Cranial nerves II through XII grossly intact. ASSESSMENT: 1. Small bowel obstruction with incarcerated small bowel within the incisional hernia status post exploratory laparotomy, lysis of adhesions and repair of incarcerated incisional hernia PLAN: -NG tube discontinued today -Start sips of clear liquid diet -Continue pain management -Continue IV fluids -Encouraged patient to use incentive spirometer -Encouraged patient to ambulate -GI prophylaxis Protonix and DVT prophylaxis Lovenox Physician Vehicle Trimmer note has been reviewed by physician. Signing provider agrees with the documented findings, assessment, and plan of care. Objective - Vital Signs Vital signs: Vital Signs Temp 98.0 F 07/18/22 08:00 Pulse 73 07/18/22 08:00 Resp 16 07/18/22 08:00 BP 100/63 07/18/22 08:00 Pulse Ox 92 L 07/18/22 08:00 FiO2 Intake & Output 07/17/22 07/18/22 07/18/22 18:59 06:59 18:59 Intake Total 700 1150 Output Total 25 500 Balance 675 650 Weight 88.451 kg 88.451 kg Intake: IV 700 150 Intake, IV Titration 1000 Amount Lactated Ringers 1,000 ml 1000 @ 125 mls/hr IV .Q8H ONE Rx#:[id number] Output: Gastric Drainage 300 Urine 200 Estimated Blood Loss 25 Other: # Voids 1 - Labs CBC & Chem 7: 07/18/22 06:33 07/18/22 06:33 Labs: Abnormal Lab Results - Last 24 Hours (Table) 07/18/22 07/18/22 Range/Units 06:33 06:33 WBC 13.98 H (4.50-10.00) X 10*3/uL RDW 14.9 H (11.5-14.5) % Immature Gran # 0.05 H (0.00-0.04) X 10*3/uL Neutrophils # 11.11 H (1.80-7.70) X 10*3/uL Monocytes # 1.29 H (0.20-1.00) X 10*3/uL Carbon Dioxide 28.7 H (20.0-27.5) mmol/L Anion Gap 7.30 L (10.00-18.00) mmol/L BUN/Creatinine Ratio 31.14 H (12.00-20.00) Ratio Glucose 138 H (70-110) mg/dL Total Bilirubin 1.40 H (0.30-1.20) mg/dL Total Protein 5.5 L (6.2-8.2) g/dL Albumin 3.5 L (3.8-4.9) g/dL
[2022-07-19] MEDS: KETOROLAC 15 MG/ML 1 ML VIAL IVP SCH ×3 (05:12→17:34)
[2022-07-19 07:50] LABS: HCT 40.8 % (34.0-46.0); Hypochromasia Moderate; MCHC 32.7 g/dL (31.0-37.0); MCV 94.8 fL (80.0-100.0); Mean Platelet Volume 8.4; Platelet Count 175 k/uL (150-450); RDW 13.6 % (11.5-15.5)
[2022-07-19 08:26] LABS: HGB 13.3 gm/dL (11.4-16.0)
[2022-07-19] MEDS: SODIUM CHLORIDE 0.9% 1,000 ML IV SCH ×2 (08:56→15:17)
[2022-07-19] MEDS: DOCUSATE 100 MG CAP PO SCH ×2 (08:56→22:57)
[2022-07-19] MEDS: PANTOPRAZOLE 40 MG/10 ML VIAL IV SCH (08:57)
[2022-07-19] MEDS: ACETAMINOPHEN TAB 325 MG TAB PO PRN ×2 (08:57→17:34)
[2022-07-19] MEDS: ENOXAPARIN 40 MG/0.4 ML SYRINGE SQ SCH (08:57)
[2022-07-19 10:14] LABS: Eosinophils # (M) 0.08 k/uL (0-0.7); Lymphocytes # (M) 1.52 k/uL (1.0-4.8); Neutrophils % (M) 70 %; Nucleated Red Blood Cells 0 /100 WBC (0-0); Total Cells Counted 100
[2022-07-19 10:22] LABS: African American GFR (CKD) 113.7 (60.0-200.0); Albumin 3.2 g/dL (3.8-4.9); Albumin/Globulin Ratio 1.78 (1.60-3.17); Anion Gap 6.2 mmol/L (10.00-18.00); BUN/Creat Ratio 34.4 Ratio (12.00-20.00); Blood Urea Nitrogen 17.2 mg/dL (9.0-27.0); Calcium 8.5 mg/dL (8.7-10.3); Carbon Dioxide 25.8 mmol/L (20.0-27.5); Globulin 1.8 g/dL (1.6-3.3); Non-African American GFR(CKD) 98.1 (60.0-200.0); Potassium 3.6 mmol/L (3.5-5.5); Total Bilirubin 1.2 mg/dL (0.30-1.20)
--- NOTE | 2022-07-19 14:11 | P.PN ---
Subjective Progress Note Date: 07/19/22 CHIEF COMPLAINT: Small bowel obstruction HISTORY OF PRESENT ILLNESS: Patient is POD #2, status post exploratory laparotomy, lysis of adhesions and repair of incarcerated incisional hernia for small bowel obstruction and incarcerated small bowel within the incisional hernia. Patient reports poor diet she is feeling better each day. She did have a bowel movement. She denies any nausea or vomiting. She tolerated the clear liquid diet. She's asking for advanced in her diet. She has been up and ambu lating. Afebrile. WBC has normalized from 13.98 8.0 hemoglobin is 13.3 platelet 175 sodium is 142 potassium 3.6 creatinine 0.5 Patient seen and examined with Dr. hernandez PHYSICAL EXAM: VITAL SIGNS: Reviewed. GENERAL: Well-developed in no acute distress. HEENT: No sclera icterus. Extraocular movements grossly intact. Moist buccal mucosa. Head is atraumatic, normocephalic. ABDOMEN: Soft. Nondistended. Incision dressing clean dry and intact NEUROLOGIC: Alert and oriented. Cranial nerves II through XII grossly intact. ASSESSMENT: 1. Small bowel obstruction with incarcerated small bowel within the incisional hernia status post exploratory laparotomy, lysis of adhesions and repair of incarcerated incisional hernia PLAN: -Advance diet to full liquids for lunch and then regular for dinner -Anticipating discharge tomorrow -Continue supportive care -Discontinue IV fluids -Encouraged patient to use incentive spirometer -Encouraged patient to ambulate -GI prophylaxis Protonix and DVT prophylaxis Lovenox Physician Aviation Support Equipment Repairer note has been reviewed by physician. Signing provider agrees with the documented findings, assessment, and plan of care. Objective - Vital Signs Vital signs: Vital Signs Temp 98.2 F 07/19/22 08:00 Pulse 77 07/19/22 08:00 Resp 13 07/19/22 08:00 BP 116/74 07/19/22 08:00 Pulse Ox 94 L 07/19/22 08:00 FiO2 Intake & Output 07/18/22 07/19/22 07/19/22 18:59 06:59 18:59 Output Total 0 Balance 0 Output: Urine 0 Other: Voiding Method Toilet # Voids 6 # Bowel Movements 2 - Labs CBC & Chem 7: 07/19/22 06:45 07/19/22 06:45 Labs: Abnormal Lab Results - Last 24 Hours (Table) 07/19/22 Range/Units 06:45 Chloride 110 H (96-109) mmol/L Anion Gap 6.20 L (10.00-18.00) mmol/L Creatinine 0.5 L (0.6-1.5) mg/dL BUN/Creatinine Ratio 34.40 H (12.00-20.00) Ratio Glucose 117 H (70-110) mg/dL Calcium 8.5 L (8.7-10.3) mg/dL Total Protein 5.0 L (6.2-8.2) g/dL Albumin 3.2 L (3.8-4.9) g/dL
--- NOTE | 2022-07-19 19:08 | P.PN ---
Subjective This is a pleasant 71 years old female with past medical history of hypertension Patient has history of multiple surgeries, presents because of abdominal pain. Patient was found to have bowel obstruction secondary to incarcerated hernia and she was taken to emergency exploratory laparotomy with hernia repair. Today is postoperative day #1, she is lying in bed comfortable, she looks a pleasant and smiling, she still complains from some abdominal pain and she looks tired but she says it's much better than when she came in, her main concerns are bothering her is the NG tube which is showing only minimal greenish discharge. She denies chest pain or dyspnea. No headache or weakness or numbness. No urinary complaints. No fever She denies smoking, alcohol or illicit drugs Vitas looks stable Labs showing mild leukocytosis and mildly elevated liver enzymes, WBC is 14.7, AST is 56 and ALT 57 while total albumin is 1.8. Lipase is normal. Chest x-ray showing no acute pulmonary process. NG tube appears satisfactory in a Place and there is similar mild cardiomegaly and interstitial vascular prominence. Brian Lexa to exclude mild pulmonary vascular congestion. CT of the abdomen and pelvis: Anterior abdominal wall hernia is present towards the level of the umbilicus. Transition point of patient small bowel obstruction is within the hernia. There is fluid present. Mesenteric vessels are also present. There is as whirled appearance. Mac changes is noted within the hernia. Hernia mouth is wide. Stomach is fluid-filled. Lung bases some basilar atelectasis changes are present. Aorta no significant abnormality is appreciated. Liver shows low attenuation. Gallbladder is absent. Pancreas, spleen and adrenal show no significant changes. Findings is consistent with small bowel obstructions with transition point within the abdominal wall hernia anteriorly. Hernia appears wide. Reported related to referred clinical after interpretation of the exam. 07/19/2022 patient is with liquid diet, today's been advanced Her abdominal pain rated as 5/10 She has 3 loose bowel movements since yesterday IV fluids discontinue Objective - Vital Signs Vital signs: Vital Signs Temp 98.2 F 07/19/22 17:30 Pulse 77 07/19/22 17:30 Resp 18 07/19/22 17:30 BP 125/82 07/19/22 17:30 Pulse Ox 95 07/19/22 17:30 FiO2 Intake & Output 07/19/22 07/19/22 07/20/22 06:59 18:59 06:59 Output Total 0 Balance 0 Output: Urine 0 Other: Voiding Method Toilet # Voids 5 # Bowel Movements 2 - Exam GENERAL: The patient is alert and oriented x3, not in any acute distress. Well developed, well nourished. HEENT: Pupils are round and equally reacting to light. EOMI. No scleral icterus. No conjunctival pallor. Normocephalic, atraumatic. No pharyngeal erythema. No thyromegaly. CARDIOVASCULAR: S1 and S2 present. No murmurs, rubs, or gallops. PULMONARY: Chest is clear to auscultation, no wheezing or crackles. -ABDOMEN: Soft, Midline vertical surgical incisional wound with dressing on a Place expected surrounding tenderness, nondistended, normoactive bowel sounds. No palpable organomegaly. MUSCULOSKELETAL: No joint swelling or deformity. EXTREMITIES: No cyanosis, clubbing, or pedal edema. NEUROLOGICAL: Gross neurological examination did not reveal any focal deficits. SKIN: No rashes. no petechiae. - Labs CBC & Chem 7: 07/19/22 06:45 07/19/22 06:45 Labs: Abnormal Lab Results - Last 24 Hours (Table) 07/19/22 Range/Units 06:45 Chloride 110 H (96-109) mmol/L Anion Gap 6.20 L (10.00-18.00) mmol/L Creatinine 0.5 L (0.6-1.5) mg/dL BUN/Creatinine Ratio 34.40 H (12.00-20.00) Ratio Glucose 117 H (70-110) mg/dL Calcium 8.5 L (8.7-10.3) mg/dL Total Protein 5.0 L (6.2-8.2) g/dL Albumin 3.2 L (3.8-4.9) g/dL Assessment and Plan Assessment: Acute bowel obstruction secondary to incarcerated incisional hernia status post exploratory laparotomy and hernia repair with lysis of adhesions Mild transaminitis. obesity with BMI of 32.4 Plan: This is a pleasant 71 years old female who presents with incarcerated hernia status post hernia repair today's postop day #1. Keep bowel rest Surgery primary team on the case Pain management Continue with gentle hydration Labs and medication were reviewed.. Continue same treatment. Continue with symptomatic treatment. Resume home medication. Monitor lytes and vitals. DVT and GI prophylaxis. Further recommendations as per clinical course of the patient DVT prophylaxis: Subcutaneous Lovenox GI Prophylaxis: Protonix PT/OT: Pending Thank you for consulting us and we will follow up with you
[2022-07-19] MEDS: ONDANSETRON 4 MG/2 ML VIAL IVP PRN (19:41)
[2022-07-19] MEDS: METOCLOPRAMIDE 5 MG/ML 2 ML VIAL IVP PRN (22:41)
[2022-07-19] MEDS: HYDROmorphone 1 MG/ML 1 ML SYRINGE IVP PRN (22:50)
[2022-07-20] MEDS: ONDANSETRON 4 MG/2 ML VIAL IVP PRN (02:30)
[2022-07-20] MEDS: HYDROmorphone 0.5 MG/0.5 ML SYRINGE IVP PRN ×2 (03:42→10:32)
[2022-07-20 08:50] LABS: Basophils % (A) 0 %; Eosinophils # (A) 0.1 k/uL (0-0.7); Eosinophils % (A) 1 %; HCT 41.9 % (34.0-46.0); HGB 13.7 gm/dL (11.4-16.0); Hypochromasia Slight; Lymphocytes # (A) 1.3 k/uL (1.0-4.8); Lymphocytes % (A) 12 %; MCH 30.7 pg (25.0-35.0); MCHC 32.8 g/dL (31.0-37.0); MCV 93.4 fL (80.0-100.0); Mean Platelet Volume 8.5; Monocytes # (A) 0.7 k/uL (0-1.0); Monocytes % (A) 7 %; Neutrophils # (A) 8.5 k/uL (1.3-7.7); Neutrophils % (A) 79 %; Platelet Count 245 k/uL (150-450); RBC 4.48 m/uL (3.80-5.40); RDW 13.4 % (11.5-15.5); WBC 10.8 k/uL (3.8-10.6)
[2022-07-20 09:04] LABS: African American GFR (CKD) >90 (>60 ml/min/1.73 sqM); Anion Gap 3 mmol/L; Blood Urea Nitrogen 12 mg/dL (7-17); Calcium 8.1 mg/dL (8.4-10.2); Carbon Dioxide 28 mmol/L (22-30); Chloride 107 mmol/L (98-107); Glucose 105 mg/dL (74-99); Non-African American GFR(CKD) >90 (>60 ml/min/1.73 sqM); Potassium 3.7 mmol/L (3.5-5.1); Sodium 138 mmol/L (137-145)
[2022-07-20] MEDS: DOCUSATE 100 MG CAP PO SCH ×2 (09:32→20:44)
[2022-07-20] MEDS: ENOXAPARIN 40 MG/0.4 ML SYRINGE SQ SCH (09:34)
[2022-07-20] MEDS: METOCLOPRAMIDE 5 MG/ML 2 ML VIAL IVP PRN (10:24)
[2022-07-20] MEDS: PANTOPRAZOLE 40 MG/10 ML VIAL IV SCH ×2 (10:24→10:26)
[2022-07-20] MEDS: KETOROLAC 15 MG/ML 1 ML VIAL IVP SCH ×3 (12:00→23:33)
[2022-07-20] MEDS: ACETAMINOPHEN IV (For NPO) 1,000 MG in EMPTY BAG 1 BAG IVPB SCH ×3 (12:00→23:34)
[2022-07-20] MEDS: LEVOFLOXACIN 500MG-D5W PMX 500 MG in DEXTROSE/WATER 1 100ML.BAG IVPB SCH (12:41)
--- NOTE | 2022-07-20 13:25 | P.PN ---
Subjective This is a pleasant 71 years old female with past medical history of hypertension Patient has history of multiple surgeries, presents because of abdominal pain. Patient was found to have bowel obstruction secondary to incarcerated hernia and she was taken to emergency exploratory laparotomy with hernia repair. Today is postoperative day #1, she is lying in bed comfortable, she looks a pleasant and smiling, she still complains from some abdominal pain and she looks tired but she says it's much better than when she came in, her main concerns are bothering her is the NG tube which is showing only minimal greenish discharge. She denies chest pain or dyspnea. No headache or weakness or numbness. No urinary complaints. No fever She denies smoking, alcohol or illicit drugs Vitas looks stable Labs showing mild leukocytosis and mildly elevated liver enzymes, WBC is 14.7, AST is 56 and ALT 57 while total albumin is 1.8. Lipase is normal. Chest x-ray showing no acute pulmonary process. NG tube appears satisfactory in a Place and there is similar mild cardiomegaly and interstitial vascular prominence. Brian Lexa to exclude mild pulmonary vascular congestion. CT of the abdomen and pelvis: Anterior abdominal wall hernia is present towards the level of the umbilicus. Transition point of patient small bowel obstruction is within the hernia. There is fluid present. Mesenteric vessels are also present. There is as whirled appearance. Mac changes is noted within the hernia. Hernia mouth is wide. Stomach is fluid-filled. Lung bases some basilar atelectasis changes are present. Aorta no significant abnormality is appreciated. Liver shows low attenuation. Gallbladder is absent. Pancreas, spleen and adrenal show no significant changes. Findings is consistent with small bowel obstructions with transition point within the abdominal wall hernia anteriorly. Hernia appears wide. Reported related to referred clinical after interpretation of the exam. 07/19/2022 patient is with liquid diet, today's been advanced Her abdominal pain rated as 5/10 She has 3 loose bowel movements since yesterday IV fluids discontinue 07/20/2012 Patient improving slowly and gradually She has some mild coughing She had more nausea last night with worsening abdominal pain 7/10 compared to 5/10 yesterday, however Her abdominal pain looks controlled and patient does not think she needs more pain medication now She has no worsening abdominal distention today. Abdomen looks soft with some surgical site tenderness which is expected Still has watery bowel movement with the total amount Reglan was added today. Objective - Vital Signs Vital signs: Vital Signs Temp 97.7 F 07/20/22 07:37 Pulse 77 07/20/22 07:37 Resp 18 07/20/22 07:37 BP 126/79 07/20/22 07:37 Pulse Ox 94 L 07/20/22 07:37 FiO2 Intake & Output 07/19/22 07/20/22 07/20/22 18:59 06:59 18:59 Other: Voiding Method Toilet # Voids 5 2 - Exam GENERAL: The patient is alert and oriented x3, not in any acute distress. Well developed, well nourished. HEENT: Pupils are round and equally reacting to light. EOMI. No scleral icterus. No conjunctival pallor. Normocephalic, atraumatic. No pharyngeal erythema. No thyromegaly. CARDIOVASCULAR: S1 and S2 present. No murmurs, rubs, or gallops. PULMONARY: Chest is clear to auscultation, no wheezing or crackles. -ABDOMEN: Soft, Midline vertical surgical incisional wound with dressing on a Place expected surrounding tenderness, nondistended, normoactive bowel sounds. N o palpable organomegaly. MUSCULOSKELETAL: No joint swelling or deformity. EXTREMITIES: No cyanosis, clubbing, or pedal edema. NEUROLOGICAL: Gross neurological examination did not reveal any focal deficits. SKIN: No rashes. no petechiae. - Labs CBC & Chem 7: 07/20/22 08:00 07/20/22 08:00 Labs: Abnormal Lab Results - Last 24 Hours (Table) 07/20/22 07/20/22 Range/Units 08:00 08:00 WBC 10.8 H (3.8-10.6) k/uL Neutrophils # 8.5 H (1.3-7.7) k/uL Creatinine 0.43 L (0.52-1.04) mg/dL Glucose 105 H (74-99) mg/dL Calcium 8.1 L (8.4-10.2) mg/dL Assessment and Plan Assessment: Acute bowel obstruction secondary to incarcerated incisional hernia status post exploratory laparotomy and hernia repair with lysis of adhesions Mild transaminitis. obesity with BMI of 32.4 Plan: This is a pleasant 71 years old female who presents with incarcerated hernia status post hernia repair today's postop day #1. Keep bowel rest Surgery primary team on the case Pain management Continue with gentle hydration Labs and medication were reviewed.. Continue same treatment. Continue with symptomatic treatment. Resume home medication. Monitor lytes and vitals. DVT and GI prophylaxis. Further recommendations as per clinical course of the patient DVT prophylaxis: Subcutaneous Lovenox GI Prophylaxis: Protonix PT/OT: Pending Thank you for consulting us and we will follow up with you
--- NOTE | 2022-07-20 14:49 | P.PN ---
Subjective Progress Note Date: 07/20/22 CHIEF COMPLAINT: Small bowel obstruction HISTORY OF PRESENT ILLNESS: Patient is POD #3, status post exploratory laparotomy, lysis of adhesions and repair of incarcerated incisional hernia for small bowel obstruction and incarcerated small bowel within the incisional hernia. Patient has increase in abdominal pain during the night after starting regular diet. She is back to requiring the IV Dilaudid. She is no longer having any flatus. She did have 2 bowel movements yesterday before starting the regular food. Likely patient has developed an ileus. She reports nausea. No vomiting. Afebrile. White count slightly elevated temporal 8 Hgb 13.7 platelets 245 sodium is 138 potassium 3.7 creatinine 0.43 Patient seen and examined with Dr. hernandez PHYSICAL EXAM: VITAL SIGNS: Reviewed. GENERAL: Well-developed in no acute distress. HEENT: No sclera icterus. Extraocular movements grossly intact. Moist buccal mucosa. Head is atraumatic, normocephalic. ABDOMEN: Abdomen distended and more firm and tender in the upper abdomen. Incision dressing clean dry and intact NEUROLOGIC: Alert and oriented. Cranial nerves II through XII grossly intact. ASSESSMENT: 1. Small bowel obstruction with incarcerated small bowel within the incisional hernia status post exploratory laparotomy, lysis of adhesions and repair of incarcerated incisional hernia 2. Postoperative ileus PLAN: -Keep patient nothing by mouth -Change Reglan to scheduled -Continue antiemetics -IV Tylenol and Toradol added for pain -IV Antibiotics added empirically -Restart IV fluids at normal saline at 50 mL -Encouraged patient to use incentive spirometer -Encouraged patient to ambulate -GI prophylaxis Protonix and DVT prophylaxis Lovenox Physician Noodle Maker note has been reviewed by physician. Signing provider agrees with the documented findings, assessment, and plan of care. Objective - Vital Signs Vital signs: Vital Signs Temp 98 F 07/20/22 13:37 Pulse 86 07/20/22 13:37 Resp 17 07/20/22 13:37 BP 116/71 07/20/22 13:37 Pulse Ox 94 L 07/20/22 13:37 FiO2 Intake & Output 07/19/22 07/20/22 07/20/22 18:59 06:59 18:59 Other: Voiding Method Toilet # Voids 5 2 - Labs CBC & Chem 7: 07/20/22 08:00 07/20/22 08:00 Labs: Abnormal Lab Results - Last 24 Hours (Table) 07/20/22 07/20/22 Range/Units 08:00 08:00 WBC 10.8 H (3.8-10.6) k/uL Neutrophils # 8.5 H (1.3-7.7) k/uL Creatinine 0.43 L (0.52-1.04) mg/dL Glucose 105 H (74-99) mg/dL Calcium 8.1 L (8.4-10.2) mg/dL
[2022-07-20] MEDS: SODIUM CHLORIDE 0.9% 1,000 ML IV SCH (16:46)
[2022-07-20] MEDS: METOCLOPRAMIDE 5 MG/ML 2 ML VIAL IVP SCH ×2 (17:11→23:33)
[2022-07-21] MEDS: KETOROLAC 15 MG/ML 1 ML VIAL IVP SCH ×4 (05:39→23:57)
[2022-07-21] MEDS: ACETAMINOPHEN IV (For NPO) 1,000 MG in EMPTY BAG 1 BAG IVPB SCH (05:40)
[2022-07-21] MEDS: DOCUSATE 100 MG CAP PO SCH ×2 (07:41→19:56)
[2022-07-21] MEDS: METOCLOPRAMIDE 5 MG/ML 2 ML VIAL IVP SCH ×3 (07:41→23:57)
[2022-07-21] MEDS: PANTOPRAZOLE 40 MG/10 ML VIAL IV SCH (07:41)
[2022-07-21] MEDS: ENOXAPARIN 40 MG/0.4 ML SYRINGE SQ SCH (07:42)
[2022-07-21] MEDS: LEVOFLOXACIN 500MG-D5W PMX 500 MG in DEXTROSE/WATER 1 100ML.BAG IVPB SCH (12:16)
[2022-07-21] MEDS: SODIUM CHLORIDE 0.9% 1,000 ML IV SCH (12:20)
[2022-07-21 12:49] LABS: Basophils # (A) 0.03 X 10*3/uL (0.00-0.10); Basophils % (A) 0.4 %; Eosinophils # (A) 0.12 X 10*3/uL (0.04-0.35); Eosinophils % (A) 1.7 %; HCT 39.7 % (37.2-46.3); HGB 12.9 g/dL (12.0-15.0); Immature Grans, Automated 0.7 %; Lymphocytes # (A) 1.24 X 10*3/uL (0.90-5.00); Lymphocytes % (A) 17.3 %; MCH 29.9 pg (27.0-32.0); MCHC 32.5 g/dL (32.0-37.0); MCV 92.1 fL (80.0-97.0); Mean Platelet Volume 10.5 fL (9.5-12.2); Monocytes % (A) 8.4 %; NRBC Per 100 WBC 0 /100 WBCS (0.0-0.0); Neutrophils # (A) 5.12 X 10*3/uL (1.80-7.70); Neutrophils % (A) 71.5 %; Platelet Count 224 X 10*3/uL (140-440); RBC 4.31 X 10*6/uL (4.10-5.20); RDW 14.2 % (11.5-14.5); WBC 7.16 X 10*3/uL (4.50-10.00)
[2022-07-21 13:08] LABS: African American GFR (CKD) 113.7 (60.0-200.0); Anion Gap 7.7 mmol/L (10.00-18.00); BUN/Creat Ratio 23.2 Ratio (12.00-20.00); Blood Urea Nitrogen 11.6 mg/dL (9.0-27.0); Calcium 8.4 mg/dL (8.7-10.3); Carbon Dioxide 25.3 mmol/L (20.0-27.5); Magnesium 1.6 mg/dL (1.5-2.4); Non-African American GFR(CKD) 98.1 (60.0-200.0); Potassium 3.8 mmol/L (3.5-5.5)
--- NOTE | 2022-07-21 16:14 | P.PN ---
Subjective Progress Note Date: 07/21/22 CHIEF COMPLAINT: Small bowel obstruction HISTORY OF PRESENT ILLNESS: The patient is a 71-year-old female status post repair of incisional hernia and bowel obstruction. She reports passing moderate flatus and having moderate bowel movements. She has been nothing by mouth. She is eager to retry liquids. ROS: No fevers or chills. No new chest pain. PHYSICAL EXAM: VITAL SIGNS: Reviewed CONSTITUTIONAL: Well developed and in no acute distress. EYES: Conjuctivae without sclera icterus. Extraocular movements grossly intact. HEAD, EARS, NOSE, THROAT: Moist buccal mucosa. Head is atraumatic, normocephalic. Hears conversational speech. No nasal drainage. RESPIRATORY: Non-labored respirations and equal bilateral excursions. CARDIOVASCULAR: Palpable 2+ radial pulses. ABDOMEN: No peritonitis. MUSCULOSKELETAL: No gross deformity of the lower extremities noted. No clubbing. No cyanosis. SKIN: Good skin turgor. Well perfused. NEUROLOGIC: Cranial nerves II through XII grossly intact. No focal or lateralizing signs. PSYCH: Appropriate affect. Alert and oriented to person, place and time. CLINICAL LABS: Reviewed. Hemoglobin was stable 13.3-13.7. WBC up 8.0-10.8. ASSESSMENT: 1. Small bowel obstruction 2. Ileus PLAN: 1. Start liquid diet. 2. Recheck CBC Objective - Vital Signs Vital signs: Vital Signs Temp 98.4 F 07/21/22 08:00 Pulse 67 07/21/22 08:00 Resp 16 07/21/22 08:00 BP 126/68 07/21/22 08:00 Pulse Ox 95 07/21/22 08:00 FiO2 Intake & Output 07/20/22 07/21/22 07/21/22 18:59 06:59 18:59 Intake Total 820 Output Total 2 Balance 818 Intake: Intake, IV Titration 700 Amount ACETAMINOPHEN IV (For NPO 100 ) 1,000 mg In Empty Bag 1 bag @ 400 mls/hr IVPB Q6HR [facility] Rx#:[id number] Sodium Chloride 0.9% 1, 600 000 ml @ 50 mls/hr IV . Q20H [facility] Rx#:[id number] Oral 120 Output: Urine 2 Other: # Voids 4 # Bowel Movements 4 - Labs CBC & Chem 7: 07/21/22 07:00 07/21/22 07:00
[2022-07-21] MEDS ORDERED: MAGNESIUM OXIDE 400 MG TAB PO STA (22:03)
--- NOTE | 2022-07-21 22:04 | P.PN ---
Subjective This is a pleasant 71 years old female with past medical history of hypertension Patient has history of multiple surgeries, presents because of abdominal pain. Patient was found to have bowel obstruction secondary to incarcerated hernia and she was taken to emergency exploratory laparotomy with hernia repair. Today is postoperative day #1, she is lying in bed comfortable, she looks a pleasant and smiling, she still complains from some abdominal pain and she looks tired but she says it's much better than when she came in, her main concerns are bothering her is the NG tube which is showing only minimal greenish discharge. She denies chest pain or dyspnea. No headache or weakness or numbness. No urinary complaints. No fever She denies smoking, alcohol or illicit drugs Vitas looks stable Labs showing mild leukocytosis and mildly elevated liver enzymes, WBC is 14.7, AST is 56 and ALT 57 while total albumin is 1.8. Lipase is normal. Chest x-ray showing no acute pulmonary process. NG tube appears satisfactory in a Place and there is similar mild cardiomegaly and interstitial vascular prominence. Brian Lexa to exclude mild pulmonary vascular congestion. CT of the abdomen and pelvis: Anterior abdominal wall hernia is present towards the level of the umbilicus. Transition point of patient small bowel obstruction is within the hernia. There is fluid present. Mesenteric vessels are also present. There is as whirled appearance. Mac changes is noted within the hernia. Hernia mouth is wide. Stomach is fluid-filled. Lung bases some basilar atelectasis changes are present. Aorta no significant abnormality is appreciated. Liver shows low attenuation. Gallbladder is absent. Pancreas, spleen and adrenal show no significant changes. Findings is consistent with small bowel obstructions with transition point within the abdominal wall hernia anteriorly. Hernia appears wide. Reported related to referred clinical after interpretation of the exam. 07/19/2022 patient is with liquid diet, today's been advanced Her abdominal pain rated as 5/10 She has 3 loose bowel movements since yesterday IV fluids discontinue 07/20/2012 Patient improving slowly and gradually She has some mild coughing She had more nausea last night with worsening abdominal pain 7/10 compared to 5/10 yesterday, however Her abdominal pain looks controlled and patient does not think she needs more pain medication now She has no worsening abdominal distention today. Abdomen looks soft with some surgical site tenderness which is expected Still has watery bowel movement with the total amount Reglan was added today. 07/21/2022 Patient looks more pleasant and comfortable today, she thinks she is improving with less abdominal pain Liquid diet is started by surgery team as well as Reglan and Toradol. Also surgery team for the patient on antibiotic of Levaquin and restarted normal saline at 50 mL per hour. Magnesium 1.6 be replaced Objective - Vital Signs Vital signs: Vital Signs Temp 97.4 F L 07/21/22 14:00 Pulse 77 07/21/22 14:00 Resp 16 07/21/22 14:00 BP 132/82 07/21/22 14:00 Pulse Ox 91 L 07/21/22 14:00 FiO2 Intake & Output 07/21/22 07/21/22 07/22/22 06:59 18:59 06:59 Intake Total 820 Output Total 2 Balance 818 Intake: Intake, IV Titration 700 Amount ACETAMINOPHEN IV (For NPO 100 ) 1,000 mg In Empty Bag 1 bag @ 400 mls/hr IVPB Q6HR [facility] Rx#:[id number] Sodium Chloride 0.9% 1, 600 000 ml @ 50 mls/hr IV . Q20H [facility] Rx#:[id number] Oral 120 Output: Urine 2 Other: Voiding Method Toilet # Voids 4 5 # Bowel Movements 4 - Exam GENERAL: The patient is alert and oriented x3, not in any acute distress. Well developed, well nourished. HEENT: Pupils are round and equally reacting to light. EOMI. No scleral icterus. No conjunctival pallor. Normocephalic, atraumatic. No pharyngeal erythema. No thyromegaly. CARDIOVASCULAR: S1 and S2 present. No murmurs, rubs, or gallops. PULMONARY: Chest is clear to auscultation, no wheezing or crackles. -ABDOMEN: Soft, Midline vertical surgical incisional wound with dressing on a Place expected surrounding tenderness, nondistended, normoactive bowel sounds. No palpable organomegaly. MUSCULOSKELETAL: No joint swelling or deformity. EXTREMITIES: No cyanosis, clubbing, or pedal edema. NEUROLOGICAL: Gross neurological examination did not reveal any focal deficits. SKIN: No rashes. no petechiae. - Labs CBC & Chem 7: 07/21/22 07:00 07/21/22 07:00 Labs: Abnormal Lab Results - Last 24 Hours (Table) 07/21/22 07/21/22 Range/Units 07:00 07:00 Immature Gran # 0.05 H (0.00-0.04) X 10*3/uL Anion Gap 7.70 L (10.00-18.00) mmol/L Creatinine 0.5 L (0.6-1.5) mg/dL BUN/Creatinine Ratio 23.20 H (12.00-20.00) Ratio Calcium 8.4 L (8.7-10.3) mg/dL Assessment and Plan Assessment: Acute bowel obstruction secondary to incarcerated incisional hernia status post exploratory laparotomy and hernia repair with lysis of adhesions Mild transaminitis. obesity with BMI of 32.4 Plan: This is a pleasant 71 years old female who presents with incarcerated hernia status post hernia repair today's postop day #1. Keep bowel rest Surgery primary team on the case Pain management Continue with gentle hydration Labs and medication were reviewed.. Continue same treatment. Continue with symptomatic treatment. Resume home medication. Monitor lytes and vitals. DVT and GI prophylaxis. Further recommendations as per clinical course of the patient DVT prophylaxis: Subcutaneous Lovenox GI Prophylaxis: Protonix PT/OT: Pending Thank you for consulting us and we will follow up with you
[2022-07-22] MEDS: KETOROLAC 15 MG/ML 1 ML VIAL IVP SCH ×5 (07:05→23:05)
[2022-07-22] MEDS: ENOXAPARIN 40 MG/0.4 ML SYRINGE SQ SCH (08:20)
[2022-07-22] MEDS: SODIUM CHLORIDE 0.9% 1,000 ML IV SCH (08:21)
[2022-07-22] MEDS: ACETAMINOPHEN TAB 325 MG TAB PO PRN (08:21)
[2022-07-22] MEDS: METOCLOPRAMIDE 5 MG/ML 2 ML VIAL IVP SCH ×3 (08:21→23:04)
[2022-07-22] MEDS: PANTOPRAZOLE 40 MG/10 ML VIAL IV SCH (08:21)
[2022-07-22] MEDS: DOCUSATE 100 MG CAP PO SCH ×2 (08:21→21:05)
[2022-07-22] MEDS: LEVOFLOXACIN 500MG-D5W PMX 500 MG in DEXTROSE/WATER 1 100ML.BAG IVPB SCH (11:39)
--- NOTE | 2022-07-22 14:48 | P.PN ---
Subjective Progress Note Date: 07/22/22 CHIEF COMPLAINT: Small bowel obstruction HISTORY OF PRESENT ILLNESS: The patient is a 71-year-old female status post repair of incisional hernia and bowel obstruction. She reports increased nausea. She reports her symptoms are exacerbated after tomato soup. She has been ambulating yesterday. She was doing extremely well until this afternoon. Sisters at bedside. Patient gives additional history of multiple bowel obstructions including multiple exploratory laparotomies at [facility]. She is sitting up in a chair. ROS: No fevers or chills. No new chest pain. Having bowel movements. Reports nausea. PHYSICAL EXAM: VITAL SIGNS: Reviewed CONSTITUTIONAL: Well developed and in no acute distress. EYES: Conjuctivae without sclera icterus. Extraocular movements grossly intact. HEAD, EARS, NOSE, THROAT: Moist buccal mucosa. Head is atraumatic, normocephalic. Hears conversational speech. No nasal drainage. RESPIRATORY: Non-labored respirations and equal bilateral excursions. CARDIOVASCULAR: Palpable 2+ radial pulses. ABDOMEN: No peritonitis. Tender epigastrium MUSCULOSKELETAL: Lower extremity edema 2+. SKIN: Good skin turgor. Well perfused. NEUROLOGIC: Cranial nerves II through XII grossly intact. No focal or lateralizing signs. PSYCH: Appropriate affect. Alert and oriented to person, place and time. CLINICAL LABS: Reviewed. WBC down 10.8-7.16. Hemoglobin down 13.7-12.9. ASSESSMENT: 1. Small bowel obstruction 2. Ileus 3. Incisional hernia PLAN: 1. We'll obtain abdominal x-ray 2. No advancement of diet at this time. Patient encouraged to adjust her diet accordingly including avoid tomato soup Objective - Vital Signs Vital signs: Vital Signs Temp 98.4 F 07/22/22 07:49 Pulse 70 07/22/22 07:49 Resp 16 07/22/22 07:49 BP 133/72 07/22/22 07:49 Pulse Ox 95 07/22/22 07:49 FiO2 Intake & Output 07/21/22 07/22/22 07/22/22 18:59 06:59 18:59 Intake Total 1300 Balance 1300 Intake: Intake, IV Titration 1100 Amount Levofloxacin 500Mg-D5w 1100 Pmx 500 mg In Dextrose/ Water 1 100ml.bag @ 100 mls/hr IVPB Q24H [facility] Rx#: [id number] Oral 200 Other: Voiding Method Toilet # Voids 5 2 - Labs CBC & Chem 7: 07/21/22 07:00 07/21/22 07:00
--- NOTE | 2022-07-22 15:54 | XR ---
EXAMINATION TYPE: XR abdomen acute w cxr DATE OF EXAM: 07/22/2022 COMPARISON: NONE HISTORY: Epigastric pain TECHNIQUE: 4 views FINDINGS: Heart is normal. Lungs are clear of consolidation. No pleural effusion. There are no hilar masses. There are skin yuly over the midline abdomen. There are some dilated small bowel loops in the left side of the abdomen. No free air. There is gas in the large bowel down to the rectum. IMPRESSION: Dilated small bowel that could be ileus or mechanical obstruction. No active cardiopulmon berhane disease.
[2022-07-22] MEDS: HYDROmorphone 0.5 MG/0.5 ML SYRINGE IVP PRN ×2 (17:28→21:00)
[2022-07-22] MEDS: SIMETHICONE 40 MG/0.6 ML DROPS 2,000 MG/30 ML BOTTLE PO SCH (17:32)
[2022-07-22] MEDS ORDERED: SIMETHICONE 40 MG/0.6 ML DROPS 2,000 MG/30 ML BOTTLE PO SCH (18:30)
--- NOTE | 2022-07-22 19:44 | P.PN ---
Subjective This is a pleasant 71 years old female with past medical history of hypertension Patient has history of multiple surgeries, presents because of abdominal pain. Patient was found to have bowel obstruction secondary to incarcerated hernia and she was taken to emergency exploratory laparotomy with hernia repair. Today is postoperative day #1, she is lying in bed comfortable, she looks a pleasant and smiling, she still complains from some abdominal pain and she looks tired but she says it's much better than when she came in, her main concerns are bothering her is the NG tube which is showing only minimal greenish discharge. She denies chest pain or dyspnea. No headache or weakness or numbness. No urinary complaints. No fever She denies smoking, alcohol or illicit drugs Vitas looks stable Labs showing mild leukocytosis and mildly elevated liver enzymes, WBC is 14.7, AST is 56 and ALT 57 while total albumin is 1.8. Lipase is normal. Chest x-ray showing no acute pulmonary process. NG tube appears satisfactory in a Place and there is similar mild cardiomegaly and interstitial vascular prominence. Brian Lexa to exclude mild pulmonary vascular congestion. CT of the abdomen and pelvis: Anterior abdominal wall hernia is present towards the level of the umbilicus. Transition point of patient small bowel obstruction is within the hernia. There is fluid present. Mesenteric vessels are also present. There is as whirled appearance. Mac changes is noted within the hernia. Hernia mouth is wide. Stomach is fluid-filled. Lung bases some basilar atelectasis changes are present. Aorta no significant abnormality is appreciated. Liver shows low attenuation. Gallbladder is absent. Pancreas, spleen and adrenal show no significant changes. Findings is consistent with small bowel obstructions with transition point within the abdominal wall hernia anteriorly. Hernia appears wide. Reported related to referred clinical after interpretation of the exam. 07/19/2022 patient is with liquid diet, today's been advanced Her abdominal pain rated as 5/10 She has 3 loose bowel movements since yesterday IV fluids discontinue 07/20/2012 Patient improving slowly and gradually She has some mild coughing She had more nausea last night with worsening abdominal pain 7/10 compared to 5/10 yesterday, however Her abdominal pain looks controlled and patient does not think she needs more pain medication now She has no worsening abdominal distention today. Abdomen looks soft with some surgical site tenderness which is expected Still has watery bowel movement with the total amount Reglan was added today. 07/21/2022 Patient looks more pleasant and comfortable today, she thinks she is improving with less abdominal pain Liquid diet is started by surgery team as well as Reglan and Toradol. Also surgery team for the patient on antibiotic of Levaquin and restarted normal saline at 50 mL per hour. Magnesium 1.6 be replaced 07/22/2022 Patient looks pleasant and not in distress. With no or minimal abdominal pain. She states that she tolerates a liquid diet better but she did not have bowel movement passing gas only after given Reglan and Toradol yesterday by surgery team Abdominal series today showing dilated bowel suspicious for ileus versus mechanical obstruction No advance of diet today. And then with gentle hydration and antibiotic Levaquin. Objective - Vital Signs Vital signs: Vital Signs Temp 98.4 F 07/22/22 07:49 Pulse 70 07/22/22 07:49 Resp 16 07/22/22 07:49 BP 133/72 07/22/22 07:49 Pulse Ox 95 07/22/22 07:49 FiO2 Intake & Output 07/21/22 07/22/22 07/22/22 18:59 06:59 18:59 Intake Total 1300 Balance 1300 Intake: Intake, IV Titration 1100 Amount Levofloxacin 500Mg-D5w 1100 Pmx 500 mg In Dextrose/ Water 1 100ml.bag @ 100 mls/hr IVPB Q24H [facility] Rx#: [id number] Oral 200 Other: Voiding Method Toilet # Voids 5 2 - Exam GENERAL: The patient is alert and oriented x3, not in any acute distress. Well developed, well nourished. HEENT: Pupils are round and equally reacting to light. EOMI. No scleral icterus. No conjunctival pallor. Normocephalic, atraumatic. No pharyngeal erythema. No thyromegaly. CARDIOVASCULAR: S1 and S2 present. No murmurs, rubs, or gallops. PULMONARY: Chest is clear to auscultation, no wheezing or crackles. -ABDOMEN: Soft, Midline vertical surgical incisional wound with dressing on a Place expected surrounding tenderness, nondistended, normoactive bowel sounds. No palpable organomegaly. MUSCULOSKELETAL: No joint swelling or deformity. EXTREMITIES: No cyanosis, clubbing, or pedal edema. NEUROLOGICAL: Gross neurological examination did not reveal any focal deficits. SKIN: No rashes. no petechiae. - Labs CBC & Chem 7: 07/21/22 07:00 07/21/22 07:00 Labs: Abnormal Lab Results - Last 24 Hours (Table) 07/21/22 07/21/22 Range/Units 07:00 07:00 Immature Gran # 0.05 H (0.00-0.04) X 10*3/uL Anion Gap 7.70 L (10.00-18.00) mmol/L Creatinine 0.5 L (0.6-1.5) mg/dL BUN/Creatinine Ratio 23.20 H (12.00-20.00) Ratio Calcium 8.4 L (8.7-10.3) mg/dL Assessment and Plan Assessment: Acute bowel obstruction secondary to incarcerated incisional hernia status post exploratory laparotomy and hernia repair with lysis of adhesions Mild transaminitis. obesity with BMI of 32.4 Plan: This is a pleasant 71 years old female who presents with incarcerated hernia status post hernia repair today's postop day #1. Keep bowel rest Surgery primary team on the case Pain management Continue with gentle hydration Labs and medication were reviewed.. Continue same treatment. Continue with symptomatic treatment. Resume home medication. Monitor lytes and vitals. DVT and GI prophylaxis. Further recommendations as per clinical course of the patient DVT prophylaxis: Subcutaneous Lovenox GI Prophylaxis: Protonix PT/OT: Pending Thank you for consulting us and we will follow up with you
--- NOTE | 2022-07-22 20:41 | XR ---
EXAMINATION TYPE: XR abdomen 1V DATE OF EXAM: 07/22/2022 COMPARISON: 07/22/2022 HISTORY: Tube placement TECHNIQUE: Single view FINDINGS: There is a nasogastric tube and the tip is apparently below the diaphragm and likely in the gastric fundus close to the GE junction. Bowel gas pattern is nonacute. IMPRESSION: NG tube tip likely in the gastric fundus.
[2022-07-23] MEDS: SIMETHICONE 40 MG/0.6 ML DROPS 2,000 MG/30 ML BOTTLE PO SCH ×4 (01:20→15:54)
[2022-07-23] MEDS: KETOROLAC 15 MG/ML 1 ML VIAL IVP SCH (06:43)
[2022-07-23] MEDS: SODIUM CHLORIDE 0.9% 1,000 ML IV SCH ×2 (06:44→18:14)
[2022-07-23] MEDS: ENOXAPARIN 40 MG/0.4 ML SYRINGE SQ SCH (08:03)
[2022-07-23] MEDS: PANTOPRAZOLE 40 MG/10 ML VIAL IV SCH ×2 (08:03→08:14)
[2022-07-23] MEDS: METOCLOPRAMIDE 5 MG/ML 2 ML VIAL IVP SCH ×2 (08:03→17:08)
[2022-07-23] MEDS: DOCUSATE 100 MG CAP PO SCH ×2 (08:04→19:44)
--- NOTE | 2022-07-23 10:20 | CDI ---
Documentation Clarification Form Date: 07/23/2022 10:06:59 AM From: Jammie DasAMALIA smith, CCDS Admit Date: 07/17/2022 11:46:00 AM Patient Name: Claude Pink Visit Number: [id number] Discharge Date: ATTENTION: The Clinical Documentation Specialists (CDI) and [facility] Coding Staff appreciate your assistance in clarifying documentation. Please respond to the clarification below the line at the bottom and electronically sign. The CDI & [facility] Coding staff will review the response and follow-up if needed. Please note: Queries are made part of the Legal Health Record. If you have any questions, please contact the author of this message via ITS. Dr. Ike Quiroga: Postoperative Ileus is documented in the 07/20 Surgeon's Progress Note. Ileus is documented in the Surgeon's 07/21 and 07/22 Progress Notes. 1023 Xray of the Abdomen: dilated small bowel that could be ileus or mechanical obstruction. Additional clarification is requested regarding the relationship, if any, that exists between the diagnosis Ileus and/or Postoperative Ileus and the procedure. Patients Admitting Diagnosis per the 07/17 H/P: Incarcerated SBO secondary to Incisional hernia. Multiple Abdominal Incisional Hernia Repairs. Post-Operative Diagnosis per the 07/17 OR Note: Small bowel obstruction, Incarcerated incisional hernia. Procedure performed: Exploratory laparotomy, Lysis of adhesions, Repair of incarcerated incisional hernia. History/Risk Factors per the 07/17 H/P: History of bowel obstructions and multiple abdominal surgeries, Hypertension, Hypothyroidism status post thyroidectomy, Hernias status post multiple repairs and Cholecystectomy. Clinical Indicators: Presented to the ED on 07/17 via EMS with Abdominal Pain. Admit with bowel obstruction and ventral hernia. 07/17 CT Abdomen/Pelvis: Small bowel obstruction with transition point within the abdominal wall hernia anteriorly, Hernia appears wide. 07/22 XR Abdomen: Dilated small bowel that could be ileus or mechanical obstruction. Treatment 07/17: To OR for Exploratory Laparotomy, Lysis of Adhesions and Repair of Incarcerated Incisional Hernia. NGT, IV Na Chl 500 mls @ 999 mls/hr q31M, IV Pepcid 20 mg x1, IV Dilaudid 0.5 mg q3H/prn, IV Dilaudid 1 mg q3H/prn, IV Zofran 4 mg q8H/prn, IV Cefazolin 50 mls @ 100 mls/hr x1. What relationship, if any, exists between the diagnosis of Ileus and/or Postoperative Ileus and the procedure: [ ] Ileus and/or Postoperative Ileus (please specify) is a complication of surgical procedure [ ] Ileus and/or Postoperative Ileus (please specify) is an expected outcome of the surgical procedure [xxxx ] Ileus and/or Postoperative Ileus (please specify) is related to patients co-morbid condition(s) (please specify): and is not a complication of the procedure [ ] Other please specify: [ ] Unable to determine (Template Last Revised: November 2020) MTDD
[2022-07-23 11:34] LABS: Basophils # (A) 0.05 X 10*3/uL (0.00-0.10); Basophils % (A) 0.5 %; Eosinophils # (A) 0.07 X 10*3/uL (0.04-0.35); Eosinophils % (A) 0.6 %; HCT 43.4 % (37.2-46.3); Immature Grans, Automated 1.4 %; Lymphocytes # (A) 1.78 X 10*3/uL (0.90-5.00); Lymphocytes % (A) 16.1 %; MCH 29.2 pg (27.0-32.0); MCHC 32.3 g/dL (32.0-37.0); MCV 90.6 fL (80.0-97.0); Mean Platelet Volume 10.2 fL (9.5-12.2); Monocytes # (A) 0.77 X 10*3/uL (0.20-1.00); Monocytes % (A) 6.9 %; NRBC Per 100 WBC 0 /100 WBCS (0.0-0.0); Neutrophils # (A) 8.25 X 10*3/uL (1.80-7.70); Neutrophils % (A) 74.5 %; Platelet Count 324 X 10*3/uL (140-440); RBC 4.79 X 10*6/uL (4.10-5.20); RDW 14.1 % (11.5-14.5); WBC 11.08 X 10*3/uL (4.50-10.00)
--- NOTE | 2022-07-23 11:39 | P.PN ---
Subjective Progress Note Date: 07/23/22 CHIEF COMPLAINT: Small bowel obstruction HISTORY OF PRESENT ILLNESS: Patient is status post exploratory laparotomy, lysis of adhesions and repair of incarcerated incisional hernia for small bowel obstruction and incarcerated small bowel within the incisional hernia on 07/17/22. Patient has developed an ileus. She required NG tube to be placed yesterday. 300 mL brownish output through the NG tube. Since placement of NG tube her abdominal distention has shown improvement. She did have flatus and a small bowel movement this morning. Abdominal x-ray shows NG tube in the gastric fundus. She also reports a decrease in pain. Afebrile. Labs are pending Patient seen and examined with Dr. hernandez PHYSICAL EXAM: VITAL SIGNS: Reviewed. GENERAL: Well-developed in no acute distress. HEENT: No sclera icterus. Extraocular movements grossly intact. Moist buccal mucosa. Head is atraumatic, normocephalic. ABDOMEN: Softer. Decreased abdominal distention. Incision site dressing clean dry and intact NEUROLOGIC: Alert and oriented. Cranial nerves II through XII grossly intact. ASSESSMENT: 1. Small bowel obstruction with incarcerated small bowel within the incisional hernia status post exploratory laparotomy, lysis of adhesions and repair of incarcerated incisional hernia 2. Postoperative ileus PLAN: -Continue NG tube for decompression -Keep patient nothing by mouth -Continue Reglan -Continue antiemetics -Continue antibiotics -Continue IV fluids -Encouraged patient to use incentive spirometer -Encouraged patient to ambulate -GI prophylaxis Protonix and DVT prophylaxis Lovenox Physician Oracle Programmer note has been reviewed by physician. Signing provider agrees with the documented findings, assessment, and plan of care. Objective - Vital Signs Vital signs: Vital Signs Temp 97.8 F 07/23/22 07:27 Pulse 69 07/23/22 07:27 Resp 17 07/23/22 07:27 BP 152/83 07/23/22 07:27 Pulse Ox 95 07/23/22 07:27 FiO2 Intake & Output 07/22/22 07/23/22 07/23/22 18:59 06:59 18:59 Other: Voiding Method Toilet - Labs CBC & Chem 7: 07/21/22 07:00 07/21/22 07:00
[2022-07-23 11:42] LABS: African American GFR (CKD) 114.8 (60.0-200.0); Anion Gap 11.7 mmol/L (10.00-18.00); BUN/Creat Ratio 13.05 Ratio (12.00-20.00); Blood Urea Nitrogen 6.3 mg/dL (9.0-27.0); Calcium 8.6 mg/dL (8.7-10.3); Carbon Dioxide 23.5 mmol/L (20.0-27.5); Magnesium 1.8 mg/dL (1.5-2.4); Non-African American GFR(CKD) 99.1 (60.0-200.0); Potassium 3.8 mmol/L (3.5-5.5)
[2022-07-23] MEDS: LEVOFLOXACIN 500MG-D5W PMX 500 MG in DEXTROSE/WATER 1 100ML.BAG IVPB SCH (12:46)
[2022-07-23] MEDS: MAGNESIUM SULFATE-D5W PMX 1 GM in DEXTROSE/WATER 1 100ML.BAG IVPB SCH ×2 (17:08→18:14)
--- NOTE | 2022-07-23 23:42 | P.PN ---
Subjective Progress Note Date: 07/23/22 Patient is postoperative day # 6 incarcerated hernia repair. She had increased abdominal pain and xray was obtained showing possible ileus vs. mechanical obstruction. NG tube was placed. She has about 700 mls of output in canister today. Iv fluids increased to 100 mls per hour with normal saline. Continues on IV levaquin. Had small BM today. States abdominal pain is improving. Review of Systems Constitutional: Denied any fatigue denied any fever. Cardio vascular: denied any chest pain, palpitations Gastrointestinal: denied any nausea, vomiting, diarrhea. Currently NPO with NG tube in place. Pulmonary: Denied any shortness of breath cough Neurologic denied any new focal deficits All inpatient medications were reviewed and appropriate changes in these medications as dictated in the interval history and assessment and plan. PHYSICAL EXAMINATION: GENERAL: The patient is alert and oriented x3, not in any acute distress. Well developed, well nourished. HEENT: Pupils are round and equally reacting to light. EOMI. No scleral icterus. No conjunctival pallor. Normocephalic, atraumatic. No pharyngeal erythema. No thyromegaly. CARDIOVASCULAR: S1 and S2 present. No murmurs, rubs, or gallops. PULMONARY: Chest is clear to auscultation, no wheezing or crackles. ABDOMEN: Soft, tender, nondistended, normoactive bowel sounds. No palpable organomegaly. Post surgical with adbominal binder in place MUSCULOSKELETAL: No joint swelling or deformity. EXTREMITIES: No cyanosis, clubbing, or pedal edema. NEUROLOGICAL: Gross neurological examination did not reveal any focal deficits. SKIN: No rashes. Assessment and Plan Assessment Acute bowel obstruction secondary to incarcerated incisional hernia status post exploratory laparotomy and hernia repair with lysis of adhesions Mild transaminitis. obesity with BMI of 32.4 Postoperative ileus GI Prophylaxis DVT Prophylaxis Full Code Plan 'Continue NPO/NG tube Continue supporitive care Increase IV fluids Increase activity level Thank you for this consultation The impression and plan of care has been dictated by Zoila Patel, Nurse Practitioner as directed. Dr. Nash MD I have performed a history and physical examination and medical decision making of this patient, discussed the same with the dictator, and agree with the dictators assessment and plan as written, documented as a scribe. Based on total visit time, I have performed more than 50% of this visit. Objective - Vital Signs Vital signs: Vital Signs Temp 97.9 F 07/23/22 14:00 Pulse 67 07/23/22 14:00 Resp 18 07/23/22 14:00 BP 135/78 07/23/22 14:00 Pulse Ox 95 07/23/22 14:00 FiO2 Intake & Output 07/22/22 07/23/22 07/23/22 18:59 06:59 18:59 Output Total 500 Balance -500 Output: Gastric Drainage 500 Other: Voiding Method Toilet # Voids 2 - Labs CBC & Chem 7: 07/23/22 07:02 07/23/22 07:02 Labs: Abnormal Lab Results - Last 24 Hours (Table) 07/23/22 07/23/22 Range/Units 07:02 07:02 WBC 11.08 H (4.50-10.00) X 10*3/uL Immature Gran # 0.16 H (0.00-0.04) X 10*3/uL Neutrophils # 8.25 H (1.80-7.70) X 10*3/uL BUN 6.3 L (9.0-27.0) mg/dL Creatinine 0.5 L (0.6-1.5) mg/dL Calcium 8.6 L (8.7-10.3) mg/dL Assessment and Plan Time with Patient: Less than 30
[2022-07-24] MEDS: SIMETHICONE 40 MG/0.6 ML DROPS 2,000 MG/30 ML BOTTLE PO SCH ×4 (00:46→17:34)
[2022-07-24] MEDS: METOCLOPRAMIDE 5 MG/ML 2 ML VIAL IVP SCH ×3 (00:48→16:23)
[2022-07-24] MEDS: SODIUM CHLORIDE 0.9% 1,000 ML IV SCH ×2 (04:53→16:23)
[2022-07-24] MEDS: DOCUSATE 100 MG CAP PO SCH ×3 (09:05→20:26)
[2022-07-24] MEDS: ENOXAPARIN 40 MG/0.4 ML SYRINGE SQ SCH (09:38)
[2022-07-24 11:37] LABS: Basophils # (A) 0.1 k/uL (0-0.2); Basophils % (A) 1 %; Eosinophils # (A) 0.2 k/uL (0-0.7); Eosinophils % (A) 2 %; HCT 47.6 % (34.0-46.0); HGB 15.6 gm/dL (11.4-16.0); Lymphocytes # (A) 1.8 k/uL (1.0-4.8); Lymphocytes % (A) 15 %; MCH 29.6 pg (25.0-35.0); MCHC 32.8 g/dL (31.0-37.0); MCV 90.2 fL (80.0-100.0); Mean Platelet Volume 8.3; Monocytes # (A) 0.6 k/uL (0-1.0); Monocytes % (A) 5 %; Neutrophils # (A) 8.8 k/uL (1.3-7.7); Neutrophils % (A) 76 %; Platelet Count 369 k/uL (150-450); RBC 5.28 m/uL (3.80-5.40); RDW 13.8 % (11.5-15.5); WBC 11.6 k/uL (3.8-10.6)
[2022-07-24 13:24] LABS: Ionized Calcium 4.8 mg/dL (4.5-5.3)
[2022-07-24 13:36] LABS: ALT 27 U/L (4-34); AST 28 U/L (14-36); African American GFR (CKD) >90 (>60 ml/min/1.73 sqM); Albumin 3.8 g/dL (3.5-5.0); Albumin/Globulin Ratio 1.6; Alkaline Phosphatase 115 U/L (38-126); Anion Gap 13 mmol/L; Blood Urea Nitrogen 5 mg/dL (7-17); Calcium 8.8 mg/dL (8.4-10.2); Carbon Dioxide 25 mmol/L (22-30); Chloride 101 mmol/L (98-107); Globulin 2.4 g/dL; Glucose 81 mg/dL (74-99); Magnesium 1.9 mg/dL (1.6-2.3); Non-African American GFR(CKD) >90 (>60 ml/min/1.73 sqM); Phosphorus 2.7 mg/dL (2.5-4.5); Potassium 3.8 mmol/L (3.5-5.1); Sodium 139 mmol/L (137-145); Total Bilirubin 0.9 mg/dL (0.2-1.3); Total Protein 6.2 g/dL (6.3-8.2)
[2022-07-24] MEDS: LEVOFLOXACIN 500MG-D5W PMX 500 MG in DEXTROSE/WATER 1 100ML.BAG IVPB SCH (14:55)
--- NOTE | 2022-07-24 15:04 | P.PN ---
Subjective Progress Note Date: 07/24/22 CHIEF COMPLAINT: Small bowel obstruction HISTORY OF PRESENT ILLNESS: Patient is status post exploratory laparotomy, lysis of adhesions and repair of incarcerated incisional hernia for small bowel obstruction and incarcerated small bowel within the incisional hernia on 07/17/22. Patient has developed an ileus. Patient's NG tube remains in place. She had 400 mL output of brownish output just this morning. She is having some liquidy stool and flatus. Afebrile. WBC remains about the same at 11.6 he moglobin 15.6 Patient seen and examined with Dr. hernandez PHYSICAL EXAM: VITAL SIGNS: Reviewed. GENERAL: Well-developed in no acute distress. HEENT: No sclera icterus. Extraocular movements grossly intact. Moist buccal mucosa. Head is atraumatic, normocephalic. ABDOMEN: Softer. Decreased abdominal distention. Nontender Incision site dressing clean dry and intact NEUROLOGIC: Alert and oriented. Cranial nerves II through XII grossly intact. ASSESSMENT: 1. Small bowel obstruction with incarcerated small bowel within the incisional hernia status post exploratory laparotomy, lysis of adhesions and repair of incarcerated incisional hernia 2. Postoperative ileus PLAN: -PICC line ordered for TPN -Consult dietitian to start TPN for nutrition support -Continue NG tube for decompression -Keep patient nothing by mouth -Continue Reglan -Continue antiemetics -Continue antibiotics -Increase IV fluids to 125 mL per hour -Encouraged patient to use incentive spirometer -Encouraged patient to ambulate -GI prophylaxis Protonix and DVT prophylaxis Lovenox Physician Piece Dye Worker note has been reviewed by physician. Signing provider agrees with the documented findings, assessment, and plan of care. Objective - Vital Signs Vital signs: Vital Signs Temp 98.3 F 07/24/22 12:32 Pulse 72 07/24/22 12:34 Resp 15 07/24/22 12:34 BP 143/82 07/24/22 12:32 Pulse Ox 95 07/24/22 12:32 FiO2 Intake & Output 07/23/22 07/24/22 07/24/22 18:59 06:59 18:59 Output Total 950 1150 Balance -950 -1150 Weight 88.451 kg Output: Gastric Drainage 950 1150 Other: # Voids 2 2 - Labs CBC & Chem 7: 07/24/22 10:56 10/25/22 10:56 Labs: Abnormal Lab Results - Last 24 Hours (Table) 07/24/22 07/24/22 Range/Units 10:56 10:56 WBC 11.6 H (3.8-10.6) k/uL Hct 47.6 H (34.0-46.0) % Neutrophils # 8.8 H (1.3-7.7) k/uL BUN 5 L (7-17) mg/dL Creatinine 0.44 L (0.52-1.04) mg/dL Total Protein 6.2 L (6.3-8.2) g/dL
--- NOTE | 2022-07-24 15:47 | P.PN ---
Subjective Progress Note Date: 07/24/22 Patient is postoperative day # 6 incarcerated hernia repair. She had increased abdominal pain and xray was obtained showing possible ileus vs. mechanical obstruction. NG tube was placed. She has about 700 mls of output in canister today. Iv fluids increased to 100 mls per hour with normal saline. Continues on IV levaquin. Had small BM today. States abdominal pain is improving. 07/24/2022 Patient is postoperative day #7 today. She continues with NG tube and has had about 1150 output so far. She continues on IV fluids at 125 mls per hour. Colace added today by surgical team. Further recommendations pending. Labs reviewed, white count stable at 11, creatinine with in normal limits. Blood pressure 14 4/88. Blood pressure medication resumed. Review of Systems Constitutional: Denied any fatigue denied any fever. Cardio vascular: denied any chest pain, palpitations Gastrointestinal: denied any nausea, vomiting, diarrhea. Currently NPO with NG tube in place. Pulmonary: Denied any shortness of breath cough Neurologic denied any new focal deficits All inpatient medications were reviewed and appropriate changes in these medications as dictated in the interval history and assessment and plan. PHYSICAL EXAMINATION: GENERAL: The patient is alert and oriented x3, not in any acute distress. Well developed, well nourished. HEENT: Pupils are round and equally reacting to light. EOMI. No scleral icterus. No conjunctival pallor. Normocephalic, atraumatic. No pharyngeal erythema. No thyromegaly. CARDIOVASCULAR: S1 and S2 present. No murmurs, rubs, or gallops. PULMONARY: Chest is clear to auscultation, no wheezing or crackles. ABDOMEN: Soft, tender, nondistended, normoactive bowel sounds. No palpable organomegaly. Post surgical with adbominal binder in place MUSCULOSKELETAL: No joint swelling or deformity. EXTREMITIES: No cyanosis, clubbing, or pedal edema. NEUROLOGICAL: Gross neurological examination did not reveal any focal deficits. SKIN: No rashes. Assessment and Plan Assessment Acute bowel obstruction secondary to incarcerated incisional hernia status post exploratory laparotomy and hernia repair with lysis of adhesions Mild transaminitis, improved obesity with BMI of 32.4 Postoperative ileus Hypertension GI Prophylaxis DVT Prophylaxis Full Code Plan 'Continue NPO/NG tube Continue supporitive care Increase IV fluids Increase activity level Lisinopril resumed, holding hydrochlorothiazide component Thank you for this consultation The impression and plan of care has been dictated by Zoila Patel, Nurse Practitioner as directed. Dr. Nash MD I have performed a history and physical examination and medical decision making of this patient, discussed the same with the dictator, and agree with the dictators assessment and plan as written, documented as a scribe. Based on total visit time, I have performed more than 50% of this visit. Objective - Vital Signs Vital signs: Vital Signs Temp 98.0 F 07/24/22 14:00 Pulse 99 07/24/22 14:00 Resp 18 07/24/22 14:00 BP 144/88 07/24/22 14:00 Pulse Ox 94 L 07/24/22 14:00 FiO2 Intake & Output 07/23/22 07/24/22 07/24/22 18:59 06:59 18:59 Output Total 950 1150 Balance -950 -1150 Weight 88.451 kg Output: Gastric Drainage 950 1150 Other: # Voids 2 2 - Labs CBC & Chem 7: 07/24/22 10:56 07/24/22 10:56 Labs: Abnormal Lab Results - Last 24 Hours (Table) 07/24/22 07/24/22 Range/Units 10:56 10:56 WBC 11.6 H (3.8-10.6) k/uL Hct 47.6 H (34.0-46.0) % Neutrophils # 8.8 H (1.3-7.7) k/uL BUN 5 L (7-17) mg/dL Creatinine 0.44 L (0.52-1.04) mg/dL Total Protein 6.2 L (6.3-8.2) g/dL Assessment and Plan Time with Patient: Less than 30
[2022-07-24] MEDS: lisinopriL 5 MG TAB PO SCH (15:54)
[2022-07-25] MEDS: METOCLOPRAMIDE 5 MG/ML 2 ML VIAL IVP SCH ×4 (00:26→23:23)
[2022-07-25] MEDS: SIMETHICONE 40 MG/0.6 ML DROPS 2,000 MG/30 ML BOTTLE PO SCH ×5 (00:28→23:22)
[2022-07-25] MEDS: HYDROmorphone 0.5 MG/0.5 ML SYRINGE IVP PRN ×3 (00:45→23:21)
[2022-07-25] MEDS: SODIUM CHLORIDE 0.9% 1,000 ML IV SCH ×3 (06:48→13:26)
[2022-07-25 08:49] LABS: Basophils # (A) 0.1 k/uL (0-0.2); Basophils % (A) 1 %; Eosinophils # (A) 0.2 k/uL (0-0.7); Eosinophils % (A) 2 %; HCT 44.4 % (34.0-46.0); HGB 14.9 gm/dL (11.4-16.0); Lymphocytes # (A) 1.5 k/uL (1.0-4.8); Lymphocytes % (A) 14 %; MCHC 33.5 g/dL (31.0-37.0); MCV 89.6 fL (80.0-100.0); Mean Platelet Volume 8.8; Monocytes # (A) 0.5 k/uL (0-1.0); Monocytes % (A) 5 %; Neutrophils # (A) 8.2 k/uL (1.3-7.7); Neutrophils % (A) 77 %; Platelet Count 299 k/uL (150-450); RBC 4.95 m/uL (3.80-5.40); RDW 14.2 % (11.5-15.5); WBC 10.6 k/uL (3.8-10.6)
[2022-07-25 09:17] LABS: African American GFR (CKD) 113.7 (60.0-200.0); Anion Gap 12.4 mmol/L (10.00-18.00); BUN/Creat Ratio 8.4 Ratio (12.00-20.00); Blood Urea Nitrogen 4.2 mg/dL (9.0-27.0); Calcium 8.6 mg/dL (8.7-10.3); Carbon Dioxide 25.6 mmol/L (20.0-27.5); Magnesium 1.8 mg/dL (1.5-2.4); Non-African American GFR(CKD) 98.1 (60.0-200.0); Phosphorus 2.7 mg/dL (2.4-5.1); Potassium 3.3 mmol/L (3.5-5.5)
[2022-07-25] MEDS ORDERED: POTASSIUM CHLORIDE ER 20 MEQ TAB.ER PO STA ×2 (09:49)
[2022-07-25] MEDS: PANTOPRAZOLE 40 MG/10 ML VIAL IV SCH (12:24)
[2022-07-25] MEDS: ENOXAPARIN 40 MG/0.4 ML SYRINGE SQ SCH (12:24)
[2022-07-25] MEDS: lisinopriL 5 MG TAB PO SCH (12:28)
[2022-07-25] MEDS ORDERED: MVI, ADULT NO.4 WITH VIT K 10 ML, TRACE (CONC-1ML/DOSE) 1 ML in AMINO ACID 5%-D20W+LYTE... IV SCH ×3 (13:00)
[2022-07-25] MEDS ORDERED: FAT EMULSION 20% 500 ML IV SCH (13:00)
--- NOTE | 2022-07-25 13:02 | IR ---
EXAMINATION TYPE: IR cvc insert >=5 years DATE OF EXAM: 07/25/2022 COMPARISON: NONE CLINICAL HISTORY: Incarcerated hernia Needs long-term intravenous access for antibiotics. PROCEDURE: Hand hygiene obtained with soap and water and alcohol-based hand rub. After informed consent, the skin overlying the right basilic vein was localized with ultrasound and n oted to be compressible and patent. An ultrasound image was obtained and submitted on the patient's chart. The overlying skin was prepped and draped and Lidocaine was used for local anesthesia. A ski n cyn was made with a scalpel. Access was gained to the vein under ultrasound guidance with a 21 ga uge needle and a 0.018 inch wire was advanced. Access site was dilated with Peel-Away sheath and cat heter tailored to the appropriate length and advanced such that the distal tip is at the cavoatrial j unction. Spot image was obtained verifying placement. Catheter was fixed to the skin and a sterile dressing was placed following hemostasis. Catheter was aspirated and flushed with saline. Patient w as discharged in stable condition without complication.Maximal barrier technique is utilized. Ultras ound image is documented on the chart. Ultrasound used with sterile technique. Fluoro time and fluoroscopic images submitted to document procedure: 2065 intraoperative C-arm images document the procedure, 0.5 minutes fluoroscopy time utilized IMPRESSION: STATUS POST ULTRASOUND AND FLUOROSCOPIC GUIDED PICC LINE PLACEMENT, READY FOR USE. THIS PROCEDURE WAS PERFORMED BY THE UNDERSIGNED.
[2022-07-25] MEDS: LEVOFLOXACIN 500MG-D5W PMX 500 MG in DEXTROSE/WATER 1 100ML.BAG IVPB SCH (13:22)
[2022-07-25] MEDS: DOCUSATE 100 MG CAP PO SCH ×2 (13:35→20:02)
--- NOTE | 2022-07-25 13:37 | P.PN ---
Subjective Progress Note Date: 07/25/22 CHIEF COMPLAINT: Small bowel obstruction HISTORY OF PRESENT ILLNESS: Patient is status post exploratory laparotomy, lysis of adhesions and repair of incarcerated incisional hernia for small bowel obstruction and incarcerated small bowel within the incisional hernia on 07/17/22. Patient has developed an ileus. Patient has NG tube with 1200 mL output yesterday and 700 bilious output this morning. Patient reports she is starting to have more flatus. She's had no further stool. Afebrile. WBC has normalized at 10.6 HCV 14.9 platelets 299 sodium is 138 potassium 3.3 creatinine 0.5 magnesium 1.8. Patient status post PICC line placement Patient seen and examined with Dr. hernandez PHYSICAL EXAM: VITAL SIGNS: Reviewed. GENERAL: Well-developed in no acute distress. HEENT: No sclera icterus. Extraocular movements grossly intact. Moist buccal mucosa. Head is atraumatic, normocephalic. ABDOMEN: Softer. Nondistended. Nontender Incision site dressing clean dry and intact NEUROLOGIC: Alert and oriented. Cranial nerves II through XII grossly intact. ASSESSMENT: 1. Small bowel obstruction with incarcerated small bowel within the incisional hernia status post exploratory laparotomy, lysis of adhesions and repair of incarcerated incisional hernia 2. Postoperative ileus 3. Hypokalemia PLAN: -Patient scheduled to start TPN for nutrition support today -Continue NG tube for decompression -Keep patient nothing by mouth -Continue Reglan -Continue antiemetics -Continue antibiotics -Continue IV fluids -Medicine service replaced potassium -Encouraged patient to use incentive spirometer -Encouraged patient to ambulate -GI prophylaxis Protonix and DVT prophylaxis Lovenox Physician Hoop Expander note has been reviewed by physician. Signing provider agrees with the documented findings, assessment, and plan of care. Objective - Vital Signs Vital signs: Vital Signs Temp 97.8 F 07/25/22 07:55 Pulse 75 07/25/22 07:55 Resp 17 07/25/22 07:55 BP 143/90 07/25/22 07:55 Pulse Ox 94 L 07/25/22 07:55 FiO2 Intake & Output 07/24/22 07/25/22 07/25/22 18:59 06:59 18:59 Output Total 1650 700 Balance -1650 -700 Weight 88.451 kg 95.5 kg Output: Gastric Drainage 1650 700 Other: Voiding Method Toilet # Voids 2 2 1 - Labs CBC & Chem 7: 07/25/22 05:55 07/25/22 05:55 Labs: Abnormal Lab Results - Last 24 Hours (Table) 07/24/22 07/25/22 07/25/22 Range/Units 10:56 05:55 05:55 Neutrophils # 8.2 H (1.3-7.7) k/uL Potassium 3.3 L (3.5-5.5) mmol/L BUN 5 L 4.2 L (7-17) mg/dL Creatinine 0.44 L 0.5 L (0.52-1.04) mg/dL BUN/Creatinine Ratio 8.40 L (12.00-20.00) Ratio Calcium 8.6 L (8.7-10.3) mg/dL Total Protein 6.2 L (6.3-8.2) g/dL Triglycerides 178.00 H (0.00-149.00) mg/dL
[2022-07-25] MEDS: ACETAMINOPHEN TAB 325 MG TAB PO PRN ×2 (14:40→23:21)
--- NOTE | 2022-07-25 16:28 | P.PN ---
Subjective Progress Note Date: 07/25/22 Patient is postoperative day # 6 incarcerated hernia repair. She had increased abdominal pain and xray was obtained showing possible ileus vs. mechanical obstruction. NG tube was placed. She has about 700 mls of output in canister today. Iv fluids increased to 100 mls per hour with normal saline. Continues on IV levaquin. Had small BM today. States abdominal pain is improving. 07/24/2022 Patient is postoperative day #7 today. She continues with NG tube and has had about 1150 output so far. She continues on IV fluids at 125 mls per hour. Colace added today by surgical team. Further recommendations pending. Labs reviewed, white count stable at 11, creatinine with in normal limits. Blood pressure 14 4/88. Blood pressure medication resumed. 07/25/2022 Patient is postoperative day #8 incarcerated hernia repair. Continues with NG Tube she has had 700 mls of output from NG tube last night. Potassium today 3.3 which was replaced. Continues on IV fluids at 125 mls per hour. Patient received PICC line to right upper extremity today and TPN was started. She did pass gas today and bowels are more active. Review of Systems Constitutional: Denied any fatigue denied any fever. Cardio vascular: denied any chest pain, palpitations Gastrointestinal: denied any nausea, vomiting, diarrhea. Currently NPO with NG tube in place. Had flatus x1 today. Pulmonary: Denied any shortness of breath cough Neurologic denied any new focal deficits All inpatient medications were reviewed and appropriate changes in these medications as dictated in the interval history and assessment and plan. PHYSICAL EXAMINATION: GENERAL: The patient is alert and oriented x3, not in any acute distress. Well developed, well nourished. HEENT: Pupils are round and equally reacting to light. EOMI. No scleral icterus. No conjunctival pallor. Normocephalic, atraumatic. No pharyngeal erythema. No thyromegaly. CARDIOVASCULAR: S1 and S2 present. No murmurs, rubs, or gallops. PULMONARY: Chest is clear to auscultation, no wheezing or crackles. ABDOMEN: Soft, tender, nondistended, normoactive bowel sounds. No palpable o rganomegaly. Post surgical with adbominal binder in place MUSCULOSKELETAL: No joint swelling or deformity. EXTREMITIES: No cyanosis, clubbing, or pedal edema. NEUROLOGICAL: Gross neurological examination did not reveal any focal deficits. SKIN: No rashes. Assessment and Plan Assessment Acute bowel obstruction secondary to incarcerated incisional hernia status post exploratory laparotomy and hernia repair with lysis of adhesions Mild transaminitis, improved obesity with BMI of 32.4 Postoperative ileus Hypertension GI Prophylaxis DVT Prophylaxis Full Code Plan 'Continue NPO/NG tube Continue supporitive care IV fluids, TPN initiated today Increase activity level Lisinopril resumed, holding hydrochlorothiazide component Thank you for this consultation The impression and plan of care has been dictated by Zoila Patel, Nurse Practitioner as directed. Dr. Nash MD I have performed a history and physical examination and medical decision making of this patient, discussed the same with the dictator, and agree with the dictators assessment and plan as written, documented as a scribe. Based on total visit time, I have performed more than 50% of this visit. Objective - Vital Signs Vital signs: Vital Signs Temp 97.9 F 07/25/22 14:00 Pulse 77 07/25/22 14:00 Resp 20 07/25/22 14:00 BP 160/96 07/25/22 14:00 Pulse Ox 93 L 07/25/22 14:00 FiO2 Intake & Output 07/24/22 07/25/22 07/25/22 18:59 06:59 18:59 Output Total 1650 700 Balance -1650 -700 Weight 88.451 kg 95.5 kg Output: Gastric Drainage 1650 700 Other: Voiding Method Toilet # Voids 2 2 1 - Labs CBC & Chem 7: 07/25/22 05:55 07/25/22 05:55 Labs: Abnormal Lab Results - Last 24 Hours (Table) 07/24/22 07/25/22 07/25/22 Range/Units 10:56 05:55 05:55 Neutrophils # 8.2 H (1.3-7.7) k/uL Potassium 3.3 L (3.5-5.5) mmol/L BUN 4.2 L (9.0-27.0) mg/dL Creatinine 0.5 L (0.6-1.5) mg/dL BUN/Creatinine Ratio 8.40 L (12.00-20.00) Ratio Calcium 8.6 L (8.7-10.3) mg/dL Triglycerides 178.00 H (0.00-149.00) mg/dL Assessment and Plan Time with Patient: Less than 30
[2022-07-25 17:29] LABS: Glucose,Whole Blood 106 mg/dL (70-110)
[2022-07-26 00:06] LABS: Glucose,Whole Blood 135 mg/dL (70-110)
[2022-07-26] MEDS: SIMETHICONE 40 MG/0.6 ML DROPS 2,000 MG/30 ML BOTTLE PO SCH ×3 (05:41→17:14)
[2022-07-26] MEDS: SODIUM CHLORIDE 0.9% 1,000 ML IV SCH ×3 (05:49→15:56)
[2022-07-26 06:09] LABS: Glucose,Whole Blood 159 mg/dL (70-110)
[2022-07-26 07:40] LABS: ALT 19 U/L (4-34); AST 17 U/L (14-36); African American GFR (CKD) >90 (>60 ml/min/1.73 sqM); Albumin 3.2 g/dL (3.5-5.0); Albumin/Globulin Ratio 1.5; Alkaline Phosphatase 84 U/L (38-126); Anion Gap 10 mmol/L; Blood Urea Nitrogen 5 mg/dL (7-17); Calcium 8.8 mg/dL (8.4-10.2); Carbon Dioxide 28 mmol/L (22-30); Chloride 98 mmol/L (98-107); Globulin 2.2 g/dL; Glucose 156 mg/dL (74-99); Non-African American GFR(CKD) >90 (>60 ml/min/1.73 sqM); Potassium 2.9 mmol/L (3.5-5.1); Sodium 136 mmol/L (137-145); Total Bilirubin 0.8 mg/dL (0.2-1.3); Total Protein 5.4 g/dL (6.3-8.2)
[2022-07-26] MEDS ORDERED: POTASSIUM CHLORIDE ER 20 MEQ TAB.ER PO STA ×2 (07:52→23:55)
[2022-07-26] MEDS ORDERED: Potassium Replacement Protocol 1 EACH MISC MISCELLANE PRN (07:52)
[2022-07-26 08:15] LABS: Magnesium 1.6 mg/dL (1.6-2.3); Phosphorus 2.9 mg/dL (2.5-4.5)
[2022-07-26] MEDS: DOCUSATE 100 MG CAP PO SCH ×2 (08:27→19:52)
[2022-07-26] MEDS: PANTOPRAZOLE 40 MG/10 ML VIAL IV SCH (08:28)
[2022-07-26] MEDS: lisinopriL 5 MG TAB PO SCH (08:28)
[2022-07-26] MEDS: ENOXAPARIN 40 MG/0.4 ML SYRINGE SQ SCH (08:29)
[2022-07-26] MEDS: METOCLOPRAMIDE 5 MG/ML 2 ML VIAL IVP SCH ×2 (08:29→17:13)
[2022-07-26] MEDS: POTASSIUM CHLORIDE 10 MEQ in WATER FOR INJECTION 1 100ML.BAG IVPB SCH ×4 (09:43→13:24)
--- NOTE | 2022-07-26 10:15 | P.PN ---
Subjective Progress Note Date: 07/26/22 CHIEF COMPLAINT: Small bowel obstruction HISTORY OF PRESENT ILLNESS: Patient is status post exploratory laparotomy, lysis of adhesions and repair of incarcerated incisional hernia for small bowel obstruction and incarcerated small bowel within the incisional hernia on 07/17/22. Patient has developed an ileus. Patient reports that she is feeling better today. She is having more flatus. No bowel movement. Denies any abdominal pain. NG tube output of 1200 through the day yesterday 350 during the night and 100 bilious output this morning. Patient started on TPN for nutrition support. Her potassium is being replaced. Afebrile. Sodium 136 potassium 2.9 creatinine 0.39 magnesium 1.6 Patient seen and examined with Dr. hernandez PHYSICAL EXAM: VITAL SIGNS: Reviewed. GENERAL: Well-developed in no acute distress. HEENT: No sclera icterus. Extraocular movements grossly intact. Moist buccal mucosa. Head is atraumatic, normocephalic. ABDOMEN: Softer. Nondistended. Nontender Incision site dressing clean dry and intact NEUROLOGIC: Alert and oriented. Cranial nerves II through XII grossly intact. ASSESSMENT: 1. Small bowel obstruction with incarcerated small bowel within the incisional hernia status post exploratory laparotomy, lysis of adhesions and repair of incarcerated incisional hernia 2. Postoperative ileus 3. Hypokalemia 4. Hypomagnesemia PLAN: -Continue TPN for nutrition support -Magnesium and potassium being replaced -Continue NG tube for decompression -Keep patient nothing by mouth -Continue Reglan -Continue antiemetics -Continue antibiotics -Continue IV fluids -Encouraged patient to use incentive spirometer -Encouraged patient to ambulate -GI prophylaxis Protonix and DVT prophylaxis Lovenox Physician Stranding Supervisor note has been reviewed by physician. Signing provider agrees with the documented findings, assessment, and plan of care. Objective - Vital Signs Vital signs: Vital Signs Temp 97.6 F 07/26/22 07:32 Pulse 85 07/26/22 09:30 Resp 17 07/26/22 07:32 BP 137/83 07/26/22 07:32 Pulse Ox 94 L 07/26/22 07:32 FiO2 Intake & Output 07/25/22 07/26/22 07/26/22 18:59 06:59 18:59 Output Total 1375 350 Balance -1375 -350 Output: Gastric Drainage 1375 350 Other: Voiding Method Toilet Toilet # Voids 1 2 - Labs CBC & Chem 7: 07/25/22 05:55 07/26/22 06:37 Labs: Abnormal Lab Results - Last 24 Hours (Table) 07/26/22 07/26/22 07/26/22 Range/Units 00:03 06:07 06:37 Sodium 136 L (137-145) mmol/L Potassium 2.9 L (3.5-5.1) mmol/L BUN 5 L (7-17) mg/dL Creatinine 0.39 L (0.52-1.04) mg/dL Glucose 156 H (74-99) mg/dL POC Glucose (mg/dL) 135 H 159 H (70-110) mg/dL Total Protein 5.4 L (6.3-8.2) g/dL Albumin 3.2 L (3.5-5.0) g/dL
[2022-07-26] MEDS: MAGNESIUM SULFATE-D5W PMX 1 GM in DEXTROSE/WATER 1 100ML.BAG IVPB SCH ×2 (10:32→12:07)
[2022-07-26 12:18] LABS: Glucose,Whole Blood 140 mg/dL (70-110)
[2022-07-26] MEDS: 1: AMINO ACID 5%-D20W+LYTES*E* 1,000 ML 2: MVI, ADULT NO.4 WITH VIT K 10 ML, TRACE (CON IV SCH ×3 (13:21)
[2022-07-26] MEDS: HYDROmorphone 1 MG/ML 1 ML SYRINGE IVP PRN (14:22)
[2022-07-26] MEDS: LEVOFLOXACIN 500MG-D5W PMX 500 MG in DEXTROSE/WATER 1 100ML.BAG IVPB SCH (14:56)
[2022-07-26 18:09] LABS: Glucose,Whole Blood 142 mg/dL (70-110)
--- NOTE | 2022-07-26 23:08 | P.PN ---
Subjective Progress Note Date: 07/26/22 Patient is postoperative day # 6 incarcerated hernia repair. She had increased abdominal pain and xray was obtained showing possible ileus vs. mechanical obstruction. NG tube was placed. She has about 700 mls of output in canister today. Iv fluids increased to 100 mls per hour with normal saline. Continues on IV levaquin. Had small BM today. States abdominal pain is improving. 07/24/2022 Patient is postoperative day #7 today. She continues with NG tube and has had about 1150 output so far. She continues on IV fluids at 125 mls per hour. Colace added today by surgical team. Further recommendations pending. Labs reviewed, white count stable at 11, creatinine with in normal limits. Blood pressure 14 4/88. Blood pressure medication resumed. 07/25/2022 Patient is postoperative day #8 incarcerated hernia repair. Continues with NG Tube she has had 700 mls of output from NG tube last night. Potassium today 3.3 which was replaced. Continues on IV fluids at 125 mls per hour. Patient received PICC line to right upper extremity today and TPN was started. She did pass gas today and bowels are more active. Patient is evaluated today sitting up in chair. NG tube is continued with biliou s output. 1025 mls of output in the last 24 hours. Potassium today found to be 2.9 which is improved to 3.6 after supplementation. Patient continues on TPN and IV fluids. She does report more flatus today. States her neck is getting stiff due to positioning. Atenolol resumed toda.y. Blood pressure 148/88. Review of Systems Constitutional: Denied any fatigue denied any fever. Cardio vascular: denied any chest pain, palpitations Gastrointestinal: denied any nausea, vomiting, diarrhea. Currently NPO with NG tube in place. Had increased flatus reported today. Pulmonary: Denied any shortness of breath cough Neurologic denied any new focal deficits All inpatient medications were reviewed and appropriate changes in these medications as dictated in the interval history and assessment and plan. PHYSICAL EXAMINATION: GENERAL: The patient is alert and oriented x3, not in any acute distress. Well developed, well nourished. HEENT: Pupils are round and equally reacting to light. EOMI. No scleral icterus. No conjunctival pallor. Normocephalic, atraumatic. No pharyngeal erythema. No thyromegaly. CARDIOVASCULAR: S1 and S2 present. No murmurs, rubs, or gallops. PULMONARY: Chest is clear to auscultation, no wheezing or crackles. ABDOMEN: Soft, tender, nondistended, normoactive bowel sounds. No palpable organomegaly. Post surgical with adbominal binder in place MUSCULOSKELETAL: No joint swelling or deformity. EXTREMITIES: No cyanosis, clubbing, or pedal edema. NEUROLOGICAL: Gross neurological examination did not reveal any focal deficits. SKIN: No rashes. Assessment and Plan Assessment Acute bowel obstruction secondary to incarcerated incisional hernia status post exploratory laparotomy and hernia repair with lysis of adhesions Mild transaminitis, improved obesity with BMI of 32.4 Postoperative ileus Hypertension GI Prophylaxis DVT Prophylaxis Full Code Plan 'Continue NPO/NG tube Continue supporitive care IV fluids, TPN infusing, electrolytes being replaced Increase activity level Lisinopril resumed, holding hydrochlorothiazide component, atenolol resumed Thank you for this consultation The impression and plan of care has been dictated by Zoila Patel, Nurse Practitioner as directed. Dr. Nash MD I have performed a history and physical examination and medical decision making of this patient, discussed the same with the dictator, and agree with the dictators assessment and plan as written, documented as a scribe. Based on total visit time, I have performed more than 50% of this visit. Objective - Vital Signs Vital signs: Vital Signs Temp 96.9 F L 07/26/22 19:47 Pulse 105 H 07/26/22 19:56 Resp 17 07/26/22 19:56 BP 148/88 07/26/22 19:47 Pulse Ox 97 07/26/22 19:47 FiO2 Intake & Output 07/26/22 07/26/22 07/27/22 06:59 18:59 06:59 Output Total 350 Balance -350 Output: Gastric Drainage 350 Other: Voiding Method Toilet Toilet Toilet # Voids 2 1 - Labs CBC & Chem 7: 07/25/22 05:55 07/26/22 19:15 Labs: Abnormal Lab Results - Last 24 Hours (Table) 07/26/22 07/26/22 07/26/22 Range/Units 00:03 06:07 06:37 Sodium 136 L (137-145) mmol/L Potassium 2.9 L (3.5-5.1) mmol/L BUN 5 L (7-17) mg/dL Creatinine 0.39 L (0.52-1.04) mg/dL Glucose 156 H (74-99) mg/dL POC Glucose (mg/dL) 135 H 159 H (70-110) mg/dL Total Protein 5.4 L (6.3-8.2) g/dL Albumin 3.2 L (3.5-5.0) g/dL 07/26/22 07/26/22 Range/Units 12:17 18:08 Sodium (137-145) mmol/L Potassium (3.5-5.1) mmol/L BUN (7-17) mg/dL Creatinine (0.52-1.04) mg/dL Glucose (74-99) mg/dL POC Glucose (mg/dL) 140 H 142 H (70-110) mg/dL Total Protein (6.3-8.2) g/dL Albumin (3.5-5.0) g/dL Assessment and Plan Time with Patient: Less than 30
[2022-07-27] MEDS: METOCLOPRAMIDE 5 MG/ML 2 ML VIAL IVP SCH ×4 (00:27→23:33)
[2022-07-27] MEDS: SIMETHICONE 40 MG/0.6 ML DROPS 2,000 MG/30 ML BOTTLE PO SCH ×5 (00:28→23:33)
[2022-07-27] MEDS: SODIUM CHLORIDE 0.9% 1,000 ML IV SCH ×4 (00:28→22:12)
[2022-07-27] MEDS: 1: AMINO ACID 5%-D20W+LYTES*E* 1,000 ML 2: MVI, ADULT NO.4 WITH VIT K 10 ML, TRACE (CON IV SCH ×6 (01:08→14:39)
[2022-07-27 01:32] LABS: Glucose,Whole Blood 159 mg/dL (70-110)
[2022-07-27] MEDS: ACETAMINOPHEN TAB 325 MG TAB PO PRN ×2 (03:02→19:53)
[2022-07-27 05:17] LABS: Glucose,Whole Blood 193 mg/dL (70-110)
[2022-07-27] MEDS: LEVOTHYROXINE 137 MCG TAB PO SCH (05:30)
[2022-07-27 08:52] LABS: ALT 23 U/L (4-34); AST 25 U/L (14-36); African American GFR (CKD) >90 (>60 ml/min/1.73 sqM); Albumin 3.4 g/dL (3.5-5.0); Albumin/Globulin Ratio 1.5; Alkaline Phosphatase 82 U/L (38-126); Anion Gap 9 mmol/L; Blood Urea Nitrogen 11 mg/dL (7-17); Calcium 8.9 mg/dL (8.4-10.2); Carbon Dioxide 30 mmol/L (22-30); Chloride 99 mmol/L (98-107); Globulin 2.3 g/dL; Glucose 159 mg/dL (74-99); Non-African American GFR(CKD) >90 (>60 ml/min/1.73 sqM); Potassium 3.8 mmol/L (3.5-5.1); Sodium 138 mmol/L (137-145); Total Bilirubin 1.1 mg/dL (0.2-1.3); Total Protein 5.7 g/dL (6.3-8.2)
[2022-07-27] MEDS: DOCUSATE 100 MG CAP PO SCH ×2 (09:27→22:13)
[2022-07-27] MEDS: CHOLECALCIFEROL 25 MCG (1000 IU) TABLET PO SCH (09:27)
[2022-07-27] MEDS: lisinopriL 5 MG TAB PO SCH (09:27)
[2022-07-27] MEDS: atenoloL 25 MG TAB PO SCH ×2 (09:27→22:12)
[2022-07-27] MEDS: PANTOPRAZOLE 40 MG/10 ML VIAL IV SCH (09:28)
[2022-07-27] MEDS: ENOXAPARIN 40 MG/0.4 ML SYRINGE SQ SCH (09:29)
[2022-07-27 10:39] LABS: Basophils # (A) 0.1 k/uL (0-0.2); Basophils % (A) 1 %; Eosinophils # (A) 0.3 k/uL (0-0.7); Eosinophils % (A) 3 %; HCT 47.2 % (34.0-46.0); Lymphocytes # (A) 1.4 k/uL (1.0-4.8); Lymphocytes % (A) 13 %; MCH 30.4 pg (25.0-35.0); MCHC 33.9 g/dL (31.0-37.0); MCV 89.6 fL (80.0-100.0); Mean Platelet Volume 8.3; Monocytes # (A) 0.7 k/uL (0-1.0); Monocytes % (A) 6 %; Neutrophils # (A) 8.4 k/uL (1.3-7.7); Neutrophils % (A) 76 %; Platelet Count 286 k/uL (150-450); RBC 5.27 m/uL (3.80-5.40); RDW 13.9 % (11.5-15.5)
--- NOTE | 2022-07-27 11:17 | P.PN ---
Subjective Progress Note Date: 07/27/22 CHIEF COMPLAINT: Small bowel obstruction HISTORY OF PRESENT ILLNESS: Patient is status post exploratory laparotomy, lysis of adhesions and repair of incarcerated incisional hernia for small bowel obstruction and incarcerated small bowel within the incisional hernia on 07/17/22. Patient has developed an ileus. NG tube was discontinued yesterday. She is tolerating clear liquids. She did have 2 small bowel movements. Afebrile. Heart rate 108. WBC is 11 Hgb 16 sodium is 138 potassium 3.8 creatinine 0.36 Patient seen and examined with Dr. hernandez PHYSICAL EXAM: VITAL SIGNS: Reviewed. GENERAL: Well-developed in no acute distress. HEENT: No sclera icterus. Extraocular movements grossly intact. Moist buccal mucosa. Head is atraumatic, normocephalic. ABDOMEN: Softer. Nondistended. Nontender Incision site dressing clean dry and intact NEUROLOGIC: Alert and oriented. Cranial nerves II through XII grossly intact. ASSESSMENT: 1. Small bowel obstruction with incarcerated small bowel within the incisional hernia status post exploratory laparotomy, lysis of adhesions and repair of i ncarcerated incisional hernia 2. Postoperative ileus 3. Hypokalemia 4. Hypomagnesemia PLAN: -Advance diet to full liquids -Continue TPN for nutrition support until tomorrow -Continue to monitor electrolytes -Continue Reglan -Continue antiemetics -Continue antibiotics -Continue IV fluids -Encouraged patient to use incentive spirometer -Encouraged patient to ambulate -Have patient shower -GI prophylaxis Protonix and DVT prophylaxis Lovenox Physician Food [employer] Team Member note has been reviewed by physician. Signing provider agrees with the documented findings, assessment, and plan of care. Objective - Vital Signs Vital signs: Vital Signs Temp 97.9 F 07/27/22 07:56 Pulse 108 H 07/27/22 07:56 Resp 16 07/27/22 07:56 BP 147/89 07/27/22 07:56 Pulse Ox 94 L 07/27/22 07:56 FiO2 Intake & Output 07/26/22 07/27/22 07/27/22 18:59 06:59 18:59 Intake Total 880 Output Total 500 Balance 880 -500 Weight 93.984 kg Intake: Intake, IV Titration 880 Amount Amino Acid 5%-D20w+Lytes* 880 E* 1,000 ml @ 80 mls/hr IV .BY DURATION [facility] Rx#: [id number] Output: Gastric Drainage 500 Other: Voiding Method Toilet Toilet Toilet # Voids 1 8 # Bowel Movements 1 - Labs CBC & Chem 7: 07/27/22 10:15 07/27/22 07:52 Labs: Abnormal Lab Results - Last 24 Hours (Table) 07/26/22 07/26/22 07/27/22 Range/Units 12:17 18:08 01:21 WBC (3.8-10.6) k/uL Hct (34.0-46.0) % Neutrophils # (1.3-7.7) k/uL Creatinine (0.52-1.04) mg/dL Glucose (74-99) mg/dL POC Glucose (mg/dL) 140 H 142 H 159 H (70-110) mg/dL Total Protein (6.3-8.2) g/dL Albumin (3.5-5.0) g/dL 07/27/22 07/27/22 07/27/22 Range/Units 05:11 07:52 10:15 WBC 11.0 H (3.8-10.6) k/uL Hct 47.2 H (34.0-46.0) % Neutrophils # 8.4 H (1.3-7.7) k/uL Creatinine 0.36 L (0.52-1.04) mg/dL Glucose 159 H (74-99) mg/dL POC Glucose (mg/dL) 193 H (70-110) mg/dL Total Protein 5.7 L (6.3-8.2) g/dL Albumin 3.4 L (3.5-5.0) g/dL
[2022-07-27 11:26] LABS: Glucose,Whole Blood 124 mg/dL (70-110)
[2022-07-27] MEDS: LEVOFLOXACIN 500MG-D5W PMX 500 MG in DEXTROSE/WATER 1 100ML.BAG IVPB SCH (12:04)
[2022-07-27 13:41] VITALS: BMI 34.4
[2022-07-27] MEDS: METHYL SALICYLATE-MENTHOL OINT (3 OZ TUBE) TOPICAL SCH ×2 (14:50→22:13)
--- NOTE | 2022-07-27 16:10 | P.PN ---
Subjective Progress Note Date: 07/27/22 Patient is postoperative day # 6 incarcerated hernia repair. She had increased abdominal pain and xray was obtained showing possible ileus vs. mechanical obstruction. NG tube was placed. She has about 700 mls of output in canister today. Iv fluids increased to 100 mls per hour with normal saline. Continues on IV levaquin. Had small BM today. States abdominal pain is improving. 07/24/2022 Patient is postoperative day #7 today. She continues with NG tube and has had about 1150 output so far. She continues on IV fluids at 125 mls per hour. Colace added today by surgical team. Further recommendations pending. Labs reviewed, white count stable at 11, creatinine with in normal limits. Blood pressure 14 4/88. Blood pressure medication resumed. 07/25/2022 Patient is postoperative day #8 incarcerated hernia repair. Continues with NG Tube she has had 700 mls of output from NG tube last night. Potassium today 3.3 which was replaced. Continues on IV fluids at 125 mls per hour. Patient received PICC line to right upper extremity today and TPN was started. She did pass gas today and bowels are more active. Patient is evaluated today sitting up in chair. NG tube is continued with biliou s output. 1025 mls of output in the last 24 hours. Potassium today found to be 2.9 which is improved to 3.6 after supplementation. Patient continues on TPN and IV fluids. She does report more flatus today. States her neck is getting stiff due to positioning. Atenolol resumed toda.y. Blood pressure 148/88. 07/27/2022 Patient evaluated today sitting up in chair. There was blister found on upper left back possibly from heat pack and optifoam has been applied. NG tube has been discontinued at this time as patient had 2 bowel movements. She was started on full liquid diet and tolerated lunch with no nausea or vomiting noted. Denies abdominal pain at this time. White count 11.0, hgb 16.0, sodium 138, potassium 3.8, BUN 11, creatinine 0.36. Glucose 150s. 93% room air, afebrile, heart rate 91, blood pressure 125/82. Review of Systems Constitutional: Denied any fatigue denied any fever. Cardio vascular: denied any chest pain, palpitations Gastrointestinal: denied any nausea, vomiting, diarrhea. 2 BMs, NG tube discontinued Pulmonary: Denied any shortness of breath cough Neurologic denied any new focal deficits All inpatient medications were reviewed and appropriate changes in these medi cations as dictated in the interval history and assessment and plan. PHYSICAL EXAMINATION: GENERAL: The patient is alert and oriented x3, not in any acute distress. Well developed, well nourished. HEENT: Pupils are round and equally reacting to light. EOMI. No scleral icterus. No conjunctival pallor. Normocephalic, atraumatic. No pharyngeal erythema. No thyromegaly. CARDIOVASCULAR: S1 and S2 present. No murmurs, rubs, or gallops. PULMONARY: Chest is clear to auscultation, no wheezing or crackles. ABDOMEN: Soft, tender, nondistended, normoactive bowel sounds. No palpable organomegaly. Post surgical with adbominal binder in place MUSCULOSKELETAL: No joint swelling or deformity. EXTREMITIES: No cyanosis, clubbing, or pedal edema. NEUROLOGICAL: Gross neurological examination did not reveal any focal deficits. SKIN: No rashes. Assessment and Plan Assessment Acute bowel obstruction secondary to incarcerated incisional hernia status post exploratory laparotomy and hernia repair with lysis of adhesions Mild transaminitis, improved obesity with BMI of 32.4 Postoperative ileus improving Hypertension GI Prophylaxis DVT Prophylaxis Full Code Plan NG tube has been discontinued and advanced to full liquid diet by primary team Continue supporitive care IV fluids, TPN infusing, electrolytes being replaced Increase activity level Lisinopril resumed, holding hydrochlorothiazide component, atenolol resumed Thank you for this consultation The impression and plan of care has been dictated by Zoila Patel, Nurse Practitioner as directed. Dr. Nash MD I have performed a history and physical examination and medical decision making of this patient, discussed the same with the dictator, and agree with the dictators assessment and plan as written, documented as a scribe. Based on total visit time, I have performed more than 50% of this visit. Objective - Vital Signs Vital signs: Vital Signs Temp 97.4 F L 07/27/22 14:00 Pulse 91 07/27/22 14:00 Resp 17 07/27/22 14:00 BP 125/82 07/27/22 14:00 Pulse Ox 93 L 07/27/22 14:00 FiO2 Intake & Output 07/26/22 07/27/22 07/27/22 18:59 06:59 18:59 Intake Total 880 Output Total 500 Balance 880 -500 Weight 93.984 kg Intake: Intake, IV Titration 880 Amount Amino Acid 5%-D20w+Lytes* 880 E* 1,000 ml @ 80 mls/hr IV .BY DURATION [facility] Rx#: [id number] Output: Gastric Drainage 500 Other: Voiding Method Toilet Toilet Toilet # Voids 1 8 # Bowel Movements 1 - Labs CBC & Chem 7: 07/27/22 10:15 07/27/22 07:52 Labs: Abnormal Lab Results - Last 24 Hours (Table) 07/26/22 07/27/22 07/27/22 Range/Units 18:08 01:21 05:11 WBC (3.8-10.6) k/uL Hct (34.0-46.0) % Neutrophils # (1.3-7.7) k/uL Creatinine (0.52-1.04) mg/dL Glucose (74-99) mg/dL POC Glucose (mg/dL) 142 H 159 H 193 H (70-110) mg/dL Total Protein (6.3-8.2) g/dL Albumin (3.5-5.0) g/dL 07/27/22 07/27/22 07/27/22 Range/Units 07:52 10:15 11:25 WBC 11.0 H (3.8-10.6) k/uL Hct 47.2 H (34.0-46.0) % Neutrophils # 8.4 H (1.3-7.7) k/uL Creatinine 0.36 L (0.52-1.04) mg/dL Glucose 159 H (74-99) mg/dL POC Glucose (mg/dL) 124 H (70-110) mg/dL Total Protein 5.7 L (6.3-8.2) g/dL Albumin 3.4 L (3.5-5.0) g/dL Assessment and Plan Time with Patient: Less than 30
[2022-07-27 18:32] LABS: Glucose,Whole Blood 134 mg/dL (70-110)
[2022-07-27 20:15] LABS: Glucose,Whole Blood 112 mg/dL (70-110)
[2022-07-27 22:16] LABS: Phosphorus 2.8 mg/dL (2.5-4.5)
[2022-07-28 02:07] LABS: Glucose,Whole Blood 130 mg/dL (70-110)
[2022-07-28] MEDS: ACETAMINOPHEN TAB 325 MG TAB PO PRN ×2 (03:11→20:33)
[2022-07-28] MEDS: LEVOTHYROXINE 137 MCG TAB PO SCH (06:20)
[2022-07-28] MEDS: SIMETHICONE 40 MG/0.6 ML DROPS 2,000 MG/30 ML BOTTLE PO SCH ×3 (06:20→17:52)
[2022-07-28] MEDS: SODIUM CHLORIDE 0.9% 1,000 ML IV SCH ×2 (06:21→16:20)
[2022-07-28 06:27] LABS: Glucose,Whole Blood 144 mg/dL (70-110)
[2022-07-28] MEDS: METOCLOPRAMIDE 5 MG/ML 2 ML VIAL IVP SCH ×2 (07:57→16:37)
[2022-07-28] MEDS: PANTOPRAZOLE 40 MG/10 ML VIAL IV SCH (08:00)
[2022-07-28 08:29] LABS: ALT 24 U/L (4-34); AST 23 U/L (14-36); African American GFR (CKD) >90 (>60 ml/min/1.73 sqM); Albumin 3.3 g/dL (3.5-5.0); Albumin/Globulin Ratio 1.3; Alkaline Phosphatase 73 U/L (38-126); Anion Gap 10 mmol/L; Blood Urea Nitrogen 8 mg/dL (7-17); Carbon Dioxide 28 mmol/L (22-30); Chloride 101 mmol/L (98-107); Globulin 2.5 g/dL; Glucose 138 mg/dL (74-99); Magnesium 1.8 mg/dL (1.6-2.3); Non-African American GFR(CKD) >90 (>60 ml/min/1.73 sqM); Phosphorus 3.6 mg/dL (2.5-4.5); Potassium 3.4 mmol/L (3.5-5.1); Sodium 139 mmol/L (137-145); Total Bilirubin 0.8 mg/dL (0.2-1.3); Total Protein 5.8 g/dL (6.3-8.2)
--- NOTE | 2022-07-28 09:20 | P.PN ---
Progress Note - Text Progress Note Date: 07/28/22 Patient's feeling better. She has complaints of neck pain. On exam vessels are still. Abdomen soft. Incision is clean dry tach. Status post repair of incarcerated incisional hernia. Patient's ileus has improved. She'll continue regular diet. His be discharged home the next 24-48 hours.
[2022-07-28] MEDS: METHYL SALICYLATE-MENTHOL OINT (3 OZ TUBE) TOPICAL SCH ×2 (09:57→20:32)
[2022-07-28] MEDS: ENOXAPARIN 40 MG/0.4 ML SYRINGE SQ SCH (09:57)
[2022-07-28] MEDS: DOCUSATE 100 MG CAP PO SCH ×3 (09:58→20:32)
[2022-07-28] MEDS: atenoloL 25 MG TAB PO SCH ×2 (09:58→20:33)
[2022-07-28] MEDS: lisinopriL 5 MG TAB PO SCH (09:58)
[2022-07-28] MEDS: CHOLECALCIFEROL 25 MCG (1000 IU) TABLET PO SCH (09:58)
[2022-07-28] MEDS: LEVOFLOXACIN 500MG-D5W PMX 500 MG in DEXTROSE/WATER 1 100ML.BAG IVPB SCH (13:06)
[2022-07-28] MEDS: 1: AMINO ACID 5%-D20W+LYTES*E* 1,000 ML 2: MVI, ADULT NO.4 WITH VIT K 10 ML, TRACE (CON IV SCH ×3 (13:43)
--- NOTE | 2022-07-28 14:09 | P.PN ---
Subjective Progress Note Date: 07/28/22 Patient is postoperative day # 6 incarcerated hernia repair. She had increased abdominal pain and xray was obtained showing possible ileus vs. mechanical obstruction. NG tube was placed. She has about 700 mls of output in canister today. Iv fluids increased to 100 mls per hour with normal saline. Continues on IV levaquin. Had small BM today. States abdominal pain is improving. 07/24/2022 Patient is postoperative day #7 today. She continues with NG tube and has had about 1150 output so far. She continues on IV fluids at 125 mls per hour. Colace added today by surgical team. Further recommendations pending. Labs reviewed, white count stable at 11, creatinine with in normal limits. Blood pressure 14 4/88. Blood pressure medication resumed. 07/25/2022 Patient is postoperative day #8 incarcerated hernia repair. Continues with NG Tube she has had 700 mls of output from NG tube last night. Potassium today 3.3 which was replaced. Continues on IV fluids at 125 mls per hour. Patient received PICC line to right upper extremity today and TPN was started. She did pass gas today and bowels are more active. Patient is evaluated today sitting up in chair. NG tube is continued with biliou s output. 1025 mls of output in the last 24 hours. Potassium today found to be 2.9 which is improved to 3.6 after supplementation. Patient continues on TPN and IV fluids. She does report more flatus today. States her neck is getting stiff due to positioning. Atenolol resumed toda.y. Blood pressure 148/88. 07/27/2022 Patient evaluated today sitting up in chair. There was blister found on upper left back possibly from heat pack and optifoam has been applied. NG tube has been discontinued at this time as patient had 2 bowel movements. She was started on full liquid diet and tolerated lunch with no nausea or vomiting noted. Denies abdominal pain at this time. White count 11.0, hgb 16.0, sodium 138, potassium 3.8, BUN 11, creatinine 0.36. Glucose 150s. 93% room air, afebrile, heart rate 91, blood pressure 125/82. 07/28/2022 Patient evaluated today sitting up in chair. NG tube has been discontinued and she continues on full liquid diet with TPN infusing. No nausea or vomiting. reports 2 loose bowel movements. No blood noted. Potassium today 3.4 and was replaced with electrolyte protocol. Patient is afebrile, heart rate 66, blood pressure 126/79, 95% room air. Patient continues to complain of acute neck pain and will order an xray to evaluate. Review of Systems Constitutional: Denied any fatigue denied any fever. Cardio vascular: denied any chest pain, palpitations Gastrointestinal: denied any nausea, vomiting, diarrhea. 2 BMs, NG tube discontinued Pulmonary: Denied any shortness of breath cough Neurologic denied any new focal deficits All inpatient medications were reviewed and appropriate changes in these medications as dictated in the interval history and assessment and plan. PHYSICAL EXAMINATION: GENERAL: The patient is alert and oriented x3, not in any acute distress. Well developed, well nourished. HEENT: Pupils are round and equally reacting to light. EOMI. No scleral icterus. No conjunctival pallor. Normocephalic, atraumatic. No pharyngeal erythema. No t hyromegaly. CARDIOVASCULAR: S1 and S2 present. No murmurs, rubs, or gallops. PULMONARY: Chest is clear to auscultation, no wheezing or crackles. ABDOMEN: Soft, tender, nondistended, normoactive bowel sounds. No palpable organomegaly. Post surgical with adbominal binder in place MUSCULOSKELETAL: No joint swelling or deformity. EXTREMITIES: No cyanosis, clubbing, or pedal edema. NEUROLOGICAL: Gross neurological examination did not reveal any focal deficits. SKIN: No rashes. Assessment and Plan Assessment Acute bowel obstruction secondary to incarcerated incisional hernia status post exploratory laparotomy and hernia repair with lysis of adhesions Mild transaminitis, improved obesity with BMI of 32.4 Postoperative ileus improving Hypertension GI Prophylaxis DVT Prophylaxis Full Code Plan NG tube has been discontinued and advanced to full liquid diet by primary team Continue supporitive care IV fluids, TPN infusing, electrolytes being replaced Increase activity level Lisinopril resumed, holding hydrochlorothiazide component, atenolol resumed blood presure improved Thank you for this consultation Patient is being considered for discharge in the next 24 to 48 hours possibly. The impression and plan of care has been dictated by Nurse Genaro Aguilera ctitioner as directed. Dr. Nash MD I have performed a history and physical examination and medical decision making of this patient, discussed the same with the dictator, and agree with the dictat ors assessment and plan as written, documented as a scribe. Based on total visit time, I have performed more than 50% of this visit. Objective - Vital Signs Vital signs: Vital Signs Temp 97.6 F 07/28/22 07:56 Pulse 66 07/28/22 07:56 Resp 16 07/28/22 07:56 BP 126/79 07/28/22 07:56 Pulse Ox 94 L 07/28/22 07:56 FiO2 Intake & Output 07/27/22 07/28/22 07/28/22 18:59 06:59 18:59 Intake Total 1011 Output Total 500 Balance 511 Weight 93.984 kg Intake: Intake, IV Titration 1011 Amount Mvi, Adult No.4 with Vit 1011 K 10 ml Trace (Conc-1Ml/ Dose) 1 ml In Amino Acid 5%-D20w+Lytes*E* 1,000 ml @ 80 mls/hr IV .BY DURATION COUNTS INCLUDE 234 BEDS AT [facility] Rx#: [id number] Output: Gastric Drainage 500 Other: Voiding Method Toilet Toilet # Voids 4 # Bowel Movements 2 1 - Labs CBC & Chem 7: 07/27/22 10:15 07/28/22 07:52 Labs: Abnormal Lab Results - Last 24 Hours (Table) 07/27/22 07/27/22 07/28/22 Range/Units 18:29 20:14 02:05 Potassium (3.5-5.1) mmol/L Creatinine (0.52-1.04) mg/dL Glucose (74-99) mg/dL POC Glucose (mg/dL) 134 H 112 H 130 H (70-110) mg/dL Total Protein (6.3-8.2) g/dL Albumin (3.5-5.0) g/dL 07/28/22 07/28/22 Range/Units 06:25 07:52 Potassium 3.4 L (3.5-5.1) mmol/L Creatinine 0.36 L (0.52-1.04) mg/dL Glucose 138 H (74-99) mg/dL POC Glucose (mg/dL) 144 H (70-110) mg/dL Total Protein 5.8 L (6.3-8.2) g/dL Albumin 3.3 L (3.5-5.0) g/dL Assessment and Plan Time with Patient: Less than 30
--- NOTE | 2022-07-28 16:06 | XR ---
EXAMINATION TYPE: XR cervical spine limited DATE OF EXAM: 07/28/2022 COMPARISON: NONE HISTORY: Status TECHNIQUE: 3 views FINDINGS: Cervical vertebra have normal alignment. No compression fracture. Posterior elements are in tact. There is hypertrophic multilevel facet arthropathy. No cervical ribs. Atlantoaxial facet joint is normal. IMPRESSION: Mild spondylotic changes. No fracture.
[2022-07-28 16:41] LABS: Glucose,Whole Blood 114 mg/dL (70-110)
[2022-07-29] MEDS: SIMETHICONE 40 MG/0.6 ML DROPS 2,000 MG/30 ML BOTTLE PO SCH ×5 (00:35→23:38)
[2022-07-29] MEDS: METOCLOPRAMIDE 5 MG/ML 2 ML VIAL IVP SCH ×4 (00:35→23:38)
[2022-07-29] MEDS: SODIUM CHLORIDE 0.9% 1,000 ML IV SCH ×3 (00:38→12:22)
[2022-07-29 01:17] LABS: Glucose,Whole Blood 123 mg/dL (70-110)
[2022-07-29] MEDS: LEVOTHYROXINE 137 MCG TAB PO SCH (05:06)
[2022-07-29 06:18] LABS: Glucose,Whole Blood 105 mg/dL (70-110)
[2022-07-29] MEDS: ENOXAPARIN 40 MG/0.4 ML SYRINGE SQ SCH (08:21)
[2022-07-29] MEDS: 1: AMINO ACID 5%-D20W+LYTES*E* 1,000 ML 2: MVI, ADULT NO.4 WITH VIT K 10 ML, TRACE (CON IV SCH ×6 (08:21→08:32)
[2022-07-29] MEDS: PANTOPRAZOLE 40 MG/10 ML VIAL IV SCH (08:22)
[2022-07-29] MEDS: CHOLECALCIFEROL 25 MCG (1000 IU) TABLET PO SCH (08:22)
[2022-07-29] MEDS: lisinopriL 5 MG TAB PO SCH (08:22)
[2022-07-29] MEDS: DOCUSATE 100 MG CAP PO SCH ×2 (08:22→20:36)
[2022-07-29] MEDS: atenoloL 25 MG TAB PO SCH ×2 (08:22→20:36)
[2022-07-29] MEDS: METHYL SALICYLATE-MENTHOL OINT (3 OZ TUBE) TOPICAL SCH ×2 (08:32→20:36)
[2022-07-29 11:14] LABS: Magnesium 1.7 mg/dL (1.5-2.4); Phosphorus 3.6 mg/dL (2.4-5.1)
[2022-07-29 11:19] LABS: Glucose,Whole Blood 120 mg/dL (70-110)
[2022-07-29 11:32] LABS: African American GFR (CKD) 113.7 (60.0-200.0); Albumin 3.2 g/dL (3.8-4.9); Albumin/Globulin Ratio 1.52 (1.60-3.17); Anion Gap 9.5 mmol/L (10.00-18.00); BUN/Creat Ratio 9.8 Ratio (12.00-20.00); Blood Urea Nitrogen 4.9 mg/dL (9.0-27.0); Carbon Dioxide 29.5 mmol/L (20.0-27.5); Globulin 2.1 g/dL (1.6-3.3); Non-African American GFR(CKD) 98.1 (60.0-200.0); Potassium 3.6 mmol/L (3.5-5.5); Total Bilirubin 0.4 mg/dL (0.30-1.20); Total Protein 5.3 g/dL (6.2-8.2)
[2022-07-29] MEDS: LEVOFLOXACIN 500MG-D5W PMX 500 MG in DEXTROSE/WATER 1 100ML.BAG IVPB SCH (12:21)
[2022-07-29] MEDS ORDERED: Magnesium Replacement Protocol 1 EACH MISC MISCELLANE PRN (12:39)
--- NOTE | 2022-07-29 12:39 | P.PN ---
Subjective Progress Note Date: 07/29/22 Patient is postoperative day # 6 incarcerated hernia repair. She had increased abdominal pain and xray was obtained showing possible ileus vs. mechanical obstruction. NG tube was placed. She has about 700 mls of output in canister today. Iv fluids increased to 100 mls per hour with normal saline. Continues on IV levaquin. Had small BM today. States abdominal pain is improving. 07/24/2022 Patient is postoperative day #7 today. She continues with NG tube and has had about 1150 output so far. She continues on IV fluids at 125 mls per hour. Colace added today by surgical team. Further recommendations pending. Labs reviewed, white count stable at 11, creatinine with in normal limits. Blood pressure 14 4/88. Blood pressure medication resumed. 07/25/2022 Patient is postoperative day #8 incarcerated hernia repair. Continues with NG Tube she has had 700 mls of output from NG tube last night. Potassium today 3.3 which was replaced. Continues on IV fluids at 125 mls per hour. Patient received PICC line to right upper extremity today and TPN was started. She did pass gas today and bowels are more active. Patient is evaluated today sitting up in chair. NG tube is continued with biliou s output. 1025 mls of output in the last 24 hours. Potassium today found to be 2.9 which is improved to 3.6 after supplementation. Patient continues on TPN and IV fluids. She does report more flatus today. States her neck is getting stiff due to positioning. Atenolol resumed toda.y. Blood pressure 148/88. 07/27/2022 Patient evaluated today sitting up in chair. There was blister found on upper left back possibly from heat pack and optifoam has been applied. NG tube has been discontinued at this time as patient had 2 bowel movements. She was started on full liquid diet and tolerated lunch with no nausea or vomiting noted. Denies abdominal pain at this time. White count 11.0, hgb 16.0, sodium 138, potassium 3.8, BUN 11, creatinine 0.36. Glucose 150s. 93% room air, afebrile, heart rate 91, blood pressure 125/82. 07/28/2022 Patient evaluated today sitting up in chair. NG tube has been discontinued and she continues on full liquid diet with TPN infusing. No nausea or vomiting. reports 2 loose bowel movements. No blood noted. Potassium today 3.4 and was replaced with electrolyte protocol. Patient is afebrile, heart rate 66, blood pressure 126/79, 95% room air. Patient continues to complain of acute neck pain and will order an xray to evaluate. 07/29/2022 Cervical spine xray showing no acute abnormalities there is some spondylytic changes and multilevel facet arthropathy. Patient does report improvement when sitting up in chair versus lying in bed. Had a more formed BM today followed by some looser stool. No abdominal pain, tolerating full liquid diet. Continues on TPN. Potassium today 3.6, glucose 120s, magnesium 1.7. Further recommendations from surgery regarding advancing diet patient is hoping to be discharged soon. Afebrile on room air, blood pressure 124/85, 82 heart rate, temperature 98.1. Review of Systems Constitutional: Denied any fatigue denied any fever. Cardio vascular: denied any chest pain, palpitations Gastrointestinal: denied any nausea, vomiting, diarrhea. 2 BMs, NG tube discontinued Pulmonary: Denied any shortness of breath cough Neurologic denied any new focal deficits All inpatient medications were reviewed and appropriate changes in these m edications as dictated in the interval history and assessment and plan. PHYSICAL EXAMINATION: GENERAL: The patient is alert and oriented x3, not in any acute distress. Well developed, well nourished. HEENT: Pupils are round and equally reacting to light. EOMI. No scleral icterus. No conjunctival pallor. Normocephalic, atraumatic. No pharyngeal erythema. No thyromegaly. CARDIOVASCULAR: S1 and S2 present. No murmurs, rubs, or gallops. PULMONARY: Chest is clear to auscultation, no wheezing or crackles. ABDOMEN: Soft, tender, nondistended, normoactive bowel sounds. No palpable organomegaly. Post surgical with adbominal binder in place MUSCULOSKELETAL: No joint swelling or deformity. EXTREMITIES: No cyanosis, clubbing, or pedal edema. NEUROLOGICAL: Gross neurological examination did not reveal any focal deficits. SKIN: No rashes. Assessment and Plan Assessment Acute bowel obstruction secondary to incarcerated incisional hernia status post exploratory laparotomy and hernia repair with lysis of adhesions Mild transaminitis, improved obesity with BMI of 32.4 Postoperative ileus improving Hypertension GI Prophylaxis DVT Prophylaxis Full Code Plan NG tube has been discontinued and advanced to full liquid diet by primary team Continue supporitive care IV fluids, TPN infusing, electrolytes being replaced Increase activity level Lisinopril resumed, holding hydrochlorothiazide component, atenolol resumed blood presure improved Thank you for this consultation Patient is being considered for discharge in the next 24 to 48 hours possibly. The impression and plan of care has been dictated by Zoila Patel, Nurse Practitioner as directed. Dr. Nash MD I have performed a history and physical examination and medical decision making of this patient, discussed the same with the dictator, and agree with the dictators assessment and plan as written, documented as a scribe. Based on total visit time, I have performed more than 50% of this visit. Objective - Vital Signs Vital signs: Vital Signs Temp 98.1 F 07/29/22 07:42 Pulse 82 07/29/22 07:42 Resp 17 07/29/22 07:42 BP 124/85 07/29/22 07:42 Pulse Ox 95 07/29/22 07:42 FiO2 Intake & Output 07/28/22 07/29/22 07/29/22 18:59 06:59 18:59 Intake Total 480 Balance 480 Weight 87.9 kg Intake: Oral 480 Other: Voiding Method Toilet # Voids 4 5 # Bowel Movements 1 1 - Labs CBC & Chem 7: 07/27/22 10:15 07/29/22 04:56 Labs: Abnormal Lab Results - Last 24 Hours (Table) 07/28/22 07/29/22 07/29/22 Range/Units 16:40 01:14 04:56 Carbon Dioxide 29.5 H (20.0-27.5) mmol/L Anion Gap 9.50 L (10.00-18.00) mmol/L BUN 4.9 L (9.0-27.0) mg/dL Creatinine 0.5 L (0.6-1.5) mg/dL BUN/Creatinine Ratio 9.80 L (12.00-20.00) Ratio Glucose 134 H (70-110) mg/dL POC Glucose (mg/dL) 114 H 123 H (70-110) mg/dL Total Protein 5.3 L (6.2-8.2) g/dL Albumin 3.2 L (3.8-4.9) g/dL Albumin/Globulin Ratio 1.52 L (1.60-3.17) g/dL 07/29/22 Range/Units 11:18 Carbon Dioxide (20.0-27.5) mmol/L Anion Gap (10.00-18.00) mmol/L BUN (9.0-27.0) mg/dL Creatinine (0.6-1.5) mg/dL BUN/Creatinine Ratio (12.00-20.00) Ratio Glucose (70-110) mg/dL POC Glucose (mg/dL) 120 H (70-110) mg/dL Total Protein (6.2-8.2) g/dL Albumin (3.8-4.9) g/dL Albumin/Globulin Ratio (1.60-3.17) g/dL Assessment and Plan Time with Patient: Less than 30
[2022-07-29] MEDS ORDERED: POTASSIUM CHLORIDE ER 20 MEQ TAB.ER PO STA (12:40)
[2022-07-29] MEDS: MAGNESIUM SULFATE-D5W PMX 1 GM in DEXTROSE/WATER 1 100ML.BAG IVPB SCH ×2 (13:34→15:27)
--- NOTE | 2022-07-29 13:50 | P.PN ---
Progress Note - Text Progress Note Date: 07/29/22 Patient feels better today. She's had multiple bowel movements. Her neck pain is improved. On exam vital signs are still. Abdomen soft. Incisions clean and intact. Status post repair of incarcerated incisional hernia. Patient's postoperative ileus is resolved. Patient will have her TPN stopped today. She is tolerating more of her oral diet. Maintenance be discharged home tomorrow.
[2022-07-29 16:47] LABS: Glucose,Whole Blood 130 mg/dL (70-110)
[2022-07-30] MEDS: SIMETHICONE 40 MG/0.6 ML DROPS 2,000 MG/30 ML BOTTLE PO SCH (05:57)
[2022-07-30] MEDS: LEVOTHYROXINE 137 MCG TAB PO SCH (05:57)
[2022-07-30 08:14] VITALS: BP 126/84; PULSE 76; RESP 17; TEMP 97.6
[2022-07-30 08:43] LABS: Basophils # (A) 0.1 k/uL (0-0.2); Basophils % (A) 1 %; Eosinophils # (A) 0.3 k/uL (0-0.7); Eosinophils % (A) 4 %; HCT 41.5 % (34.0-46.0); HGB 13.7 gm/dL (11.4-16.0); Hypochromasia Slight; Lymphocytes # (A) 1.9 k/uL (1.0-4.8); Lymphocytes % (A) 26 %; MCH 30.4 pg (25.0-35.0); MCHC 33.1 g/dL (31.0-37.0); Monocytes # (A) 0.4 k/uL (0-1.0); Monocytes % (A) 6 %; Neutrophils # (A) 4.5 k/uL (1.3-7.7); Neutrophils % (A) 62 %; Platelet Count 300 k/uL (150-450); RBC 4.51 m/uL (3.80-5.40); RDW 14.1 % (11.5-15.5); WBC 7.2 k/uL (3.8-10.6)
[2022-07-30 08:58] LABS: Glucose,Whole Blood 96 mg/dL (70-110)
[2022-07-30 09:37] LABS: African American GFR (CKD) 113.7 (60.0-200.0); Albumin 3.3 g/dL (3.8-4.9); Albumin/Globulin Ratio 1.57 (1.60-3.17); Anion Gap 8.9 mmol/L (10.00-18.00); BUN/Creat Ratio 8.6 Ratio (12.00-20.00); Blood Urea Nitrogen 4.3 mg/dL (9.0-27.0); Calcium 9.2 mg/dL (8.7-10.3); Carbon Dioxide 29.1 mmol/L (20.0-27.5); Globulin 2.1 g/dL (1.6-3.3); Magnesium 1.9 mg/dL (1.5-2.4); Non-African American GFR(CKD) 98.1 (60.0-200.0); Phosphorus 3.4 mg/dL (2.4-5.1); Potassium 3.8 mmol/L (3.5-5.5); Total Bilirubin 0.5 mg/dL (0.30-1.20); Total Protein 5.4 g/dL (6.2-8.2)
[2022-07-30] MEDS: CHOLECALCIFEROL 25 MCG (1000 IU) TABLET PO SCH (10:20)
[2022-07-30] MEDS: PANTOPRAZOLE 40 MG/10 ML VIAL IV SCH (10:21)
[2022-07-30] MEDS: METOCLOPRAMIDE 5 MG/ML 2 ML VIAL IVP SCH (10:21)
[2022-07-30] MEDS: atenoloL 25 MG TAB PO SCH (10:21)
[2022-07-30] MEDS: lisinopriL 5 MG TAB PO SCH (10:21)
[2022-07-30] MEDS: DOCUSATE 100 MG CAP PO SCH (10:21)
[2022-07-30] MEDS: METHYL SALICYLATE-MENTHOL OINT (3 OZ TUBE) TOPICAL SCH (10:22)
[2022-07-30] MEDS: ENOXAPARIN 40 MG/0.4 ML SYRINGE SQ SCH (10:22)
--- NOTE | 2022-07-30 10:36 | P.DS ---
Providers Date of admission: 07/17/22 11:46 Expected date of discharge: 07/30/22 Attending physician: Ike Quiroga Consults: 07/17/22 11:46 Consult Physician Routine Consulting Provider: Luz Loving Consult Reason/Comments: medical care Do you want consulting provider notified?: Yes [facility] Course: Discharge diagnosis 1. Small bowel obstruction with incarcerated small bowel within the incisional hernia status post exploratory laparotomy, lysis of adhesions and repair of incarcerated incisional hernia 2. Postoperative ileus resolved 3. Hypokalemia improved 4. Hypomagnesemia improved Hospital course This is a 71-year-old female presented to the hospital with complaints of lower abdominal pain with known incisional hernia. Computed tomography scan abdomen and pelvis consistent with small bowel obstruction with transition point within the abdominal wall hernia anteriorly. There is evidence of bowel in the hernia. Patient is status post exploratory laparotomy, lysis of adhesions and repair of incarcerated incisional hernia for small bowel obstruction with incarcerated small bowel within the incisional hernia. Patient did develop an ileus postoperatively. She did require NG tube to be inserted. Patient's ileus has resolved. She has tolerated advancement of diet. She is having bowel movements and flatus. Her pain is controlled. She's afebrile. She's tolerating diet. She has been up and ambulating. She is stable for discharge. Please refer to chart for any further details. Physician Ross Furnace Operator note has been reviewed by physician. Signing provider agrees with the documented findings, assessment, and plan of care. Patient Condition at Discharge: Stable Plan - Discharge Summary Discharge Rx Participant: No New Discharge Prescriptions: New Acetaminophen Tab [Tylenol] 1,000 mg PO Q6HR PRN #30 tablet PRN Reason: Pain Continue Levothyroxine Sodium [Euthyrox] 137 mcg PO DAILY atenoloL [Tenormin] 25 mg PO BID Lisinopril-Hctz 10-12.5 mg [Zestoretic 10-12.5] 1 tab PO DAILY Cholecalciferol [Vitamin D3 (25 Mcg = 1000 Iu)] 50 mcg PO DAILY Discharge Medication List Cholecalciferol [Vitamin D3 (25 Mcg = 1000 Iu)] 50 mcg PO DAILY 07/17/22 [History] Levothyroxine Sodium [Euthyrox] 137 mcg PO DAILY 07/17/22 [History] Lisinopril-Hctz 10-12.5 mg [Zestoretic 10-12.5] 1 tab PO DAILY 07/17/22 [History] atenoloL [Tenormin] 25 mg PO BID 07/17/22 [History] Acetaminophen Tab [Tylenol] 1,000 mg PO Q6HR PRN #30 tablet 07/30/22 [Rx] Follow up Appointment(s)/Referral(s): Sal Zapien MD [Primary Care Provider] - 1-2 days [facility] Visiting Nurse, [NON-STAFF] - As Needed Ike Quiroga MD [STAFF PHYSICIAN] - 1 Week Activity/Diet/Wound Care/Special Instructions: No lifting over 10 pounds Shower daily. No soaking or tub baths for 2 weeks Very light activity until you are reevaluated at your follow up appointment with your surgeon Discharge Disposition: HOME SELF-CARE
--- NOTE | 2022-07-31 17:01 | P.PN ---
Subjective Progress Note Date: 07/30/22 Patient is postoperative day # 6 incarcerated hernia repair. She had increased abdominal pain and xray was obtained showing possible ileus vs. mechanical obstruction. NG tube was placed. She has about 700 mls of output in canister today. Iv fluids increased to 100 mls per hour with normal saline. Continues on IV levaquin. Had small BM today. States abdominal pain is improving. 07/24/2022 Patient is postoperative day #7 today. She continues with NG tube and has had about 1150 output so far. She continues on IV fluids at 125 mls per hour. Colace added today by surgical team. Further recommendations pending. Labs reviewed, white count stable at 11, creatinine with in normal limits. Blood pressure 14 4/88. Blood pressure medication resumed. 07/25/2022 Patient is postoperative day #8 incarcerated hernia repair. Continues with NG Tube she has had 700 mls of output from NG tube last night. Potassium today 3.3 which was replaced. Continues on IV fluids at 125 mls per hour. Patient received PICC line to right upper extremity today and TPN was started. She did pass gas today and bowels are more active. Patient is evaluated today sitting up in chair. NG tube is continued with biliou s output. 1025 mls of output in the last 24 hours. Potassium today found to be 2.9 which is improved to 3.6 after supplementation. Patient continues on TPN and IV fluids. She does report more flatus today. States her neck is getting stiff due to positioning. Atenolol resumed toda.y. Blood pressure 148/88. 07/27/2022 Patient evaluated today sitting up in chair. There was blister found on upper left back possibly from heat pack and optifoam has been applied. NG tube has been discontinued at this time as patient had 2 bowel movements. She was started on full liquid diet and tolerated lunch with no nausea or vomiting noted. Denies abdominal pain at this time. White count 11.0, hgb 16.0, sodium 138, potassium 3.8, BUN 11, creatinine 0.36. Glucose 150s. 93% room air, afebrile, heart rate 91, blood pressure 125/82. 07/28/2022 Patient evaluated today sitting up in chair. NG tube has been discontinued and she continues on full liquid diet with TPN infusing. No nausea or vomiting. reports 2 loose bowel movements. No blood noted. Potassium today 3.4 and was replaced with electrolyte protocol. Patient is afebrile, heart rate 66, blood pressure 126/79, 95% room air. Patient continues to complain of acute neck pain and will order an xray to evaluate. 07/29/2022 Cervical spine xray showing no acute abnormalities there is some spondylytic changes and multilevel facet arthropathy. Patient does report improvement when sitting up in chair versus lying in bed. Had a more formed BM today followed by some looser stool. No abdominal pain, tolerating full liquid diet. Continues on TPN. Potassium today 3.6, glucose 120s, magnesium 1.7. Further recommendations from surgery regarding advancing diet patient is hoping to be discharged soon. Afebrile on room air, blood pressure 124/85, 82 heart rate, temperature 98.1. 07/30/2022 Patient is evaluated today sitting up in chair. She is anticipating discharge home today. Diet has been advanced and she is tolerating well. She reports no abdominal pain and has had bowel movement and passing gas. She is resumed on home medications. Sodium 142, magnesium 1.9 and potassium 3.8 today. blood count panel unremarkable. Medically she is stable for discharge and instructed to make appointment with her family doctor in 1 to 2 days. She is understanding of this. Reports neck pain has improved she feels this is attributed to the medical bed and positioning. Review of Systems Constitutional: Denied any fatigue denied any fever. Cardio vascular: denied any chest pain, palpitations Gastrointestinal: denied any nausea, vomiting, diarrhea. 2 BMs Pulmonary: Denied any shortness of breath cough Neurologic denied any new focal deficits All inpatient medications were reviewed and appropriate changes in these medications as dictated in the interval history and assessment and plan. PHYSICAL EXAMINATION: GENERAL: The patient is alert and oriented x3, not in any acute distress. Well developed, well nourished. HEENT: Pupils are round and equally reacting to light. EOMI. No scleral icterus. No conjunctival pallor. Normocephalic, atraumatic. No pharyngeal erythema. No thyromegaly. CARDIOVASCULAR: S1 and S2 present. No murmurs, rubs, or gallops. PULMONARY: Chest is clear to auscultation, no wheezing or crackles. ABDOMEN: Soft, tender, nondistended, normoactive bowel sounds. No palpable organomegaly. Post surgical with adbominal binder in place MUSCULOSKELETAL: No joint swelling or deformity. EXTREMITIES: No cyanosis, clubbing, or pedal edema. NEUROLOGICAL: Gross neurological examination did not reveal any focal deficits. SKIN: No rashes. Assessment and Plan Assessment Acute bowel obstruction secondary to incarcerated incisional hernia status post exploratory laparotomy and hernia repair with lysis of adhesions Mild transaminitis, improved obesity with BMI of 32.4 Postoperative ileus resolved Hypertension GI Prophylaxis DVT Prophylaxis Full Code Plan NG tube has been discontinued and advanced to full liquid diet by primary team She has tolerated advanced diet Continue supporitive care Increase activity level Blood pressure medications resumed on discharge Medically she is stable for discharge Thank you for this consultation The impression and plan of care has been dictated by Zoila Patel, Nurse Practitioner as directed. Dr. Nash MD I have performed a history and physical examination and medical decision making of this patient, discussed the same with the dictator, and agree with the dictators assessment and plan as written, documented as a scribe. Based on total visit time, I have performed more than 50% of this visit. Objective - Vital Signs Vital signs: Vital Signs Temp 97.6 F 07/30/22 08:00 Pulse 76 07/30/22 08:00 Resp 17 07/30/22 08:00 BP 126/84 07/30/22 08:00 Pulse Ox 93 L 07/30/22 08:00 FiO2 - Labs CBC & Chem 7: 07/30/22 04:34 07/30/22 04:34 Assessment and Plan Time with Patient: Less than 30
--- NOTE | 2022-08-01 10:26 | CDI ---
Documentation Clarification Form Date: 08/01/2022 10:10:00 AM From: Shannon Ordoñez Admit Date: 07/17/2022 11:46:00 AM Patient Name: Claude Pink Visit Number: [id number] Discharge Date: 07/30/2022 11:38:00 AM ATTENTION: The Clinical Documentation Specialists (CDI) and [facility] Coding Staff appreciate your assistance in clarifying documentation. Please respond to the clarification below the line at the bottom and electronically sign. The CDI & [facility] Coding staff will review the response and follow-up if needed. Please note: Queries are made part of the Legal Health Record. If you have any questions, please contact the author of this message via ITS. Dr. Ike Quiroga Small bowel was adherent to the mouth of the hernia causing a lead point for obstruction. The was lysed with sharp dissection. Enterolysis performed. is documented in the Operative Report 07/17/22. Please clarify if patient had extensive or non-extensive adhesions. Additional clarification regarding the procedure is requested. History/Risk factors: History of multiple abdominal surgeries Pre-Operative Diagnosis: Small Bowel obstruction incarcerated incisional hernia Postoperative Diagnosis: Same Clinical Indicators: adhesions Treatment: Lysis of adhesions Please clarify the following: [ xx ] Lysis of Extensive adhesions [ ] Lysis of Non extensive adhesions MTDD
== END 2022-07-30 11:38 | disposition home or self-care (01) | DRG 336 ==
LOC: EC 09:53 → 4SSUR 11:46
PROVIDERS: ADMIT Surgery; ATTEND Surgery
PROC: 0D9670Z Drainage of Stomach with Drainage Device, Via Natural or Artificial Opening (ICD-10-PCS; 2022-07-17)
PROC: 0DN80ZZ Release Small Intestine, Open Approach (ICD-10-PCS; 2022-07-17)
PROC: 0WQF0ZZ Repair Abdominal Wall, Open Approach (ICD-10-PCS; principal; 2022-07-17 10:15)
PROC: 0D9670Z Drainage of Stomach with Drainage Device, Via Natural or Artificial Opening (ICD-10-PCS; 2022-07-22)
PROC: 02HV33Z Insertion of Infusion Device into Superior Vena Cava, Percutaneous Approach (ICD-10-PCS; 2022-07-25)
PROC: 3E0436Z Introduction of Nutritional Substance into Central Vein, Percutaneous Approach (ICD-10-PCS; 2022-07-25)
DX: K43.0 Incisional hernia with obstruction, without gangrene (principal); J98.11 Atelectasis; K56.7 Ileus, unspecified; E87.6 Hypokalemia; E89.0 Postprocedural hypothyroidism; R74.01 Elevation of levels of liver transaminase levels; I10 Essential (primary) hypertension; Z68.32 Body mass index [BMI] 32.0-32.9, adult; E66.9 Obesity, unspecified; D72.829 Elevated white blood cell count, unspecified; E83.42 Hypomagnesemia; Z79.890 Hormone replacement therapy; Z79.899 Other long term (current) drug therapy; Z90.49 Acquired absence of other specified parts of digestive tract; Z28.21 Immunization not carried out because of patient refusal; Z71.3 Dietary counseling and surveillance; Z88.0 Allergy status to penicillin; Z88.2 Allergy status to sulfonamides
CPT/HCPCS: 36415; 36573; 72040; 74018; 74022; 74177; 80048; 80053; 82150; 82330; 83690; 83735; 84100; 84132; 84478; 85025; 85610; 85730; 93005; 96361; 96374; 99285

== ENCOUNTER → 2023-03-19 | Outpatient (CLI) | payer MEDICARE ==
--- NOTE | 2023-03-20 07:39 | MM ---
Reason for Exam: Screening (asymptomatic). Last mammogram was performed 2 year(s) and 1 month(s) ago. Patient History: Menarche at age 11. First Full-Term at age 31. Late child-bearing (after 31). Left ovary removed at age 33. Right ovary removed at age 33. Hysterectomy at age 33. Postmenopausal. Estrogen for 20 years from age 33 until age 53. Progesterone for 20 years from age 33 until age 53. Mother had breast cancer. Risk Values: Maida 5 year model risk: 3.9%. NCI Lifetime model risk: 10.4%. Prior Study Comparison: 05/26/2018 Bilateral Screening Mammogram, [facility]. 07/29/2019 Bilateral Screening Mammogram, [facility]. 01/31/2021 Bilateral Screening Mammogram, [facility]. Tissue Density: There are scattered fibroglandular densities. Findings: Analyzed By CAD. Unchanged grouped microcalcifications 11:00 left breast. Benign bilateral small oil cyst calcifications. Chronic nodularity lateral right breast. There is no suspicious group of microcalcifications or new suspicious mass in either breast. Overall Assessment: Benign, BI-RAD 2 Management: Screening Mammogram of both breasts in 1 year. See note below in regards to patient's increased five-year Maida score. Patient should continue monthly self-breast exams. A clinical breast exam by your physician is recommended on an annual basis. This exam should not preclude additional follow-up of suspicious palpable abnormalities. Note on Maida scores and lifetime risk: 1. A Maida score greater than 3% is considered moderate risk. If this is the case, consider specialist referral to assess eligibility for a risk reducing agent. 2. If overall lifetime risk for the development of breast cancer is 20% or higher, the patient may qualify for future screening with alternating mammogram and breast MRI. Electronically signed and approved by: Mika Alvarado M.D. Radiologist
== END | disposition home or self-care (01) ==
LOC: RADMAMWWP 06:59
PROVIDERS: ATTEND Family Medicine
DX: Z12.31 Encounter for screening mammogram for malignant neoplasm of breast (principal); Z78.0 Asymptomatic menopausal state; Z80.3 Family history of malignant neoplasm of breast
CPT/HCPCS: 77063; 77067

== ENCOUNTER 2023-11-10 23:24 | Inpatient (IN) | payer MEDICARE ==
[2023-11-10 23:53] LABS: Basophils # (A) 0.1 k/uL (0-0.2); Basophils % (A) 0 %; Eosinophils # (A) 0.1 k/uL (0-0.7); Eosinophils % (A) 1 %; HGB 16.8 gm/dL (11.4-16.0); Lymphocytes # (A) 1.1 k/uL (1.0-4.8); Lymphocytes % (A) 9 %; MCH 29.6 pg (25.0-35.0); MCHC 32.4 g/dL (31.0-37.0); MCV 91.2 fL (80.0-100.0); Mean Platelet Volume 7.9; Monocytes # (A) 0.6 k/uL (0-1.0); Monocytes % (A) 5 %; Neutrophils % (A) 84 %; Platelet Count 314 k/uL (150-450); RDW 14.4 % (11.5-15.5)
[2023-11-10] MEDS: ONDANSETRON 4 MG/2 ML VIAL IVP STA (23:55)
[2023-11-10] MEDS: SODIUM CHLORIDE 0.9% 1,000 ML IV STA (23:55)
[2023-11-11 00:05] LABS: ALT 74 U/L (4-34); AST 89 U/L (14-36); African American GFR (CKD) >90 (>60 ml/min/1.73 sqM); Albumin 4.5 g/dL (3.5-5.0); Alkaline Phosphatase 125 U/L (38-126); Amylase 51 U/L (30-110); Anion Gap 8 mmol/L; Blood Urea Nitrogen 20 mg/dL (7-17); Calcium 10.4 mg/dL (8.4-10.2); Carbon Dioxide 24 mmol/L (22-30); Chloride 106 mmol/L (98-107); Glucose 183 mg/dL (74-99); Lipase 65 U/L (23-300); Non-African American GFR(CKD) >90 (>60 ml/min/1.73 sqM); Potassium 4.2 mmol/L (3.5-5.1); Sodium 138 mmol/L (137-145); Total Bilirubin 1.5 mg/dL (0.2-1.3); Total Protein 7.3 g/dL (6.3-8.2)
[2023-11-11 00:27] LABS: Appearance,Urine Clear (Clear); Bilirubin,Urine Negative (Negative); Blood,Urine Negative (Negative); Color,Urine Yellow; Glucose,Urine (UA) Negative (Negative); Hyaline Casts,Urine 1 /lpf (0-2); Ketones,Urine 1+ (Negative); Leukocyte Esterase,Urine Moderate (Negative); Mucus,Urine Few /hpf; Nitrite,Urine Negative (Negative); Protein,Urine Trace (Negative); RBC,Urine 1 /hpf (0-5); Specific Gravity,Urine 1.024 (1.001-1.035); Squamous Epithelial Cell,Urine 2 /hpf (0-4); WBC,Urine 8 /hpf (0-5)
[2023-11-11] MEDS: MORPHINE SULFATE 4 MG/ML SYRINGE IVP STA (00:37)
--- NOTE | 2023-11-11 01:07 | ED ---
Abdominal Pain HPI - General Chief Complaint: Abdominal Pain Stated Complaint: Bowel Obstruction Time Seen by Provider: 11/10/23 23:35 Source: patient, EMS Mode of arrival: EMS Limitations: no limitations - History of Present Illness Initial Comments: 72-year-old female presenting with chief complaint of abdominal pain. Pain is diffuse but seems to be worst at the epigastric region. Patient has history of bowel obstructions and states that this feels somewhat similar. She has history of cholecystectomy, hysterectomy, hernia repair, and C-sections. She admits to some nausea with no vomiting. No diarrhea or constipation. No hematochezia or melena. No fevers or chills. No dysuria, hematuria, urgency, frequency. No flank pain. No chest pain or difficulty breathing. - Related Data Home Medications Medication Instructions Recorded Confirmed Cholecalciferol [Vitamin D3 (25 50 mcg PO DAILY 07/17/22 07/17/22 Mcg = 1000 Iu)] Levothyroxine Sodium [Euthyrox] 137 mcg PO DAILY 07/17/22 07/17/22 Lisinopril-Hctz 10-12.5 mg 1 tab PO DAILY 07/17/22 07/17/22 [Zestoretic 10-12.5] atenoloL [Tenormin] 25 mg PO BID 07/17/22 07/17/22 Previous Rx's Medication Instructions Recorded Acetaminophen Tab [Tylenol] 1,000 mg PO Q6HR PRN #30 tablet 07/30/22 Allergies Allergy/AdvReac Type Severity Reaction Status Date / Time Penicillins Allergy Unknown Verified 11/10/23 23:32 Sulfa (Sulfonamide Allergy Unknown Verified 11/10/23 23:32 Antibiotics) Review of Systems ROS Statement: Those systems with pertinent positive or pertinent negative responses have been documented in the HPI. ROS Other: All systems not noted in ROS Statement are negative. Past Medical History Past Medical History: Hypertension, Thyroid Disorder Additional Past Medical History / Comment(s): Hernias History of Any Multi-Drug Resistant Organisms: None Reported Past Surgical History: Section, Cholecystectomy, Hernia Repair Additional Past Surgical History / Comment(s): thyroidectomy Past Anesthesia/Blood Transfusion Reactions: No Reported Reaction Past Psychological History: No Psychological Hx Reported Smoking Status: Never smoker Past Alcohol Use History: None Reported Past Drug Use History: None Reported General Exam Limitations: no limitations General appearance: alert, in no apparent distress Head exam: Present: atraumatic, normocephalic Eye exam: Present: normal appearance Neck exam: Present: normal inspection Respiratory exam: Present: normal lung sounds bilaterally. Absent: respiratory distress, wheezes, rales, rhonchi, stridor Cardiovascular Exam: Present: regular rate, normal rhythm, normal heart sounds. Absent: systolic murmur, diastolic murmur, rubs, gallop, clicks GI/Abdominal exam: Present: soft, tenderness. Absent: distended, guarding, rebound, rigid Neurological exam: Present: alert, oriented X3 Psychiatric exam: Present: normal affect, normal mood Skin exam: Present: warm, dry Course Vital Signs 11/10/23 11/10/23 11/11/23 23:26 23:28 00:46 Temperature 97.6 F Pulse Rate 96 79 87 Respiratory 18 18 15 Rate Blood Pressure 127/83 127/83 115/75 O2 Sat by Pulse 94 L 93 L 94 L Oximetry 11/11/23 11/11/23 01:00 02:00 Temperature Pulse Rate 92 93 Respiratory 15 16 Rate Blood Pressure 115/75 130/74 O2 Sat by Pulse 93 L 95 Oximetry Medical Decision Making - Medical Decision Making Was pt. sent in by a medical professional or institution (, PA, PROJECTION PRINTER, urgent care, hospital, or longterm...) When possible be specific @ -No Did you speak to anyone other than the patient for history (EMS, parent, family, police, friend...)? What history was obtained from this source @ -No Did you review nursing and triage notes (agree or disagree)? Why? @ -I reviewed and agree with nursing and triage notes Were old charts reviewed (outside hosp., previous admission, EMS record, old EKG, old radiological studies, urgent care reports/EKG's, longterm records)? Report findings @ -No old charts were reviewed Differential Diagnosis (chest pain, altered mental status, abdominal pain women, abdominal pain men, vaginal bleeding, weakness, fever, dyspnea, syncope, headache, dizziness, GI bleed, back pain, seizure, CVA, palpatations, mental health, musculoskeletal)? @ -MDM Differential Abdominal Pain Women: Appendicitis, Cholecystitis, diverticulosis, ischemic bowel, pancreatitis, hepatitis, UTI, gastroenteritis, AAA, incarcerated hernia, bowel obstruction, constipation, inflammatory bowel, hepatitis, peptic ulcer disease, splenic infarction, perforated viscus, vulvitis, ovarian torsion, PID, kidney stone, placenta abruption... This is not meant to be an all-inclusive list EKG interpreted by me (3pts min.). @ -Sinus rhythm with sinus arrhythmia. Ventricular rate 89. SC interval 171. QRS 97. QT 349. QTc 395. X-rays interpreted by me (1pt min.). @ -None done CT interpreted by me (1pt min.). @ -CT shows moderate small bowel obstruction secondary to right lower quadrant hernia U/S interpreted by me (1pt. min.). @ -None done What testing was considered but not performed or refused? (CT, X-rays, U/S, labs)? Why? @ -None What meds were considered but not given or refused? Why? @ -None Did you discuss the management of the patient with other professionals (professionals i.e. , PA, PROJECTION PRINTER, lab, RT, psych nurse, social media sr strategy manager, supervisor engines road, teacher, military police officer, rehabilitation caseworker)? Give summary @ -I spoke with Dr. Cohen who accepted admission Was smoking cessation discussed for >3mins.? @ -No Was critical care preformed (if so, how long)? @ -No Were there social determinants of health that impacted care today? How? (Homelessness, low income, unemployed, alcoholism, drug addiction, transportation, low edu. Level, literacy, decrease access to med. care, [facility], rehab)? @ -No Was there de-escalation of care discussed even if they declined (Discuss DNR or withdrawal of care, Hospice)? DNR status @ -No What co-morbidities impacted this encounter? (DM, HTN, Smoking, COPD, CAD, Cancer, CVA, ARF, Chemo, Hep., AIDS, mental health diagnosis, sleep apnea, morbid obesity)? @ -None Was patient admitted / discharged? Hospital course, mention meds given and route, prescriptions, significant lab abnormalities, going to OR and other pertinent info. @ -72-year-old female presenting with chief complaint of abdominal pain. History of bowel obstructions, states that this feels similar. History and physical exam are conducted. WBC 12 hemoglobin 16.8. BUN 20, patient is receiving IV fluids. Total bilirubin 1.5 AST 89 and ALT 74, patient has history of cholecystectomy. Lactic acid 2.1. Urine shows no infectious process or bleeding. CT shows small bowel obstruction secondary to right lower quadrant hernia. My attending and I attempted to reduce his hernia with little success. Patient will require admission to her surgeon Dr. Quiroga. She is given prophylactic antibiotics, metronidazole 500mg and ceftriaxone 1g. She is agreeable with this plan. I discussed this case with my attending Dr. Ibrahim Undiagnosed new problem with uncertain prognosis? @ -No Drug Therapy requiring intensive monitoring for toxicity (Heparin, Nitro, Insulin, Cardizem)? @ -No Were any procedures done? @ -No Diagnosis/symptom? @ -Small bowel obstruction, hernia Acute, or Chronic, or Acute on Chronic? @ -Acute Uncomplicated (without systemic symptoms) or Complicated (systemic symptoms)? @ -Complicated Side effects of treatment? @ -No Exacerbation, Progression, or Severe Exacerbation? @ -No Poses a threat to life or bodily function? How? (Chest pain, USA, DC, pneumonia, PE, COPD, DKA, ARF, appy, cholecystitis, CVA, Diverticulitis, Homicidal, Suicidal, threat to staff... and all critical care pts) @ -Yes - Lab Data Result diagrams: 11/10/23 23:44 11/10/23 23:44 Lab Results 11/10/23 11/10/23 11/10/23 Range/Units 23:44 23:44 23:44 WBC 12.0 H (3.8-10.6) k/uL RBC 5.70 H (3.80-5.40) m/uL Hgb 16.8 H (11.4-16.0) gm/dL Hct 52.0 H (34.0-46.0) % MCV 91.2 (80.0-100.0) fL MCH 29.6 (25.0-35.0) pg MCHC 32.4 (31.0-37.0) g/dL RDW 14.4 (11.5-15.5) % Plt Count 314 (150-450) k/uL MPV 7.9 Neutrophils % 84 % Lymphocytes % 9 % Monocytes % 5 % Eosinophils % 1 % Basophils % 0 % Neutrophils # 10.0 H (1.3-7.7) k/uL Lymphocytes # 1.1 (1.0-4.8) k/uL Monocytes # 0.6 (0-1.0) k/uL Eosinophils # 0.1 (0-0.7) k/uL Basophils # 0.1 (0-0.2) k/uL Sodium 138 (137-145) mmol/L Potassium 4.2 (3.5-5.1) mmol/L Chloride 106 (98-107) mmol/L Carbon Dioxide 24 (22-30) mmol/L Anion Gap 8 mmol/L BUN 20 H (7-17) mg/dL Creatinine 0.57 (0.52-1.04) mg/dL Est GFR (CKD-EPI)AfAm >90 (>60 ml/min/1.73 sqM) Est GFR (CKD-EPI)NonAf >90 (>60 ml/min/1.73 sqM) Glucose 183 H (74-99) mg/dL Lactic Ac Sepsis Rflx Plasma Lactic Acid Shahid 2.1 H* (0.7-2.0) mmol/L Calcium 10.4 H (8.4-10.2) mg/dL Total Bilirubin 1.5 H (0.2-1.3) mg/dL AST 89 H (14-36) U/L ALT 74 H (4-34) U/L Alkaline Phosphatase 125 (38-126) U/L Troponin I (0.000-0.034) ng/mL Total Protein 7.3 (6.3-8.2) g/dL Albumin 4.5 (3.5-5.0) g/dL Amylase 51 (30-110) U/L Lipase 65 (23-300) U/L Urine Color Urine Appearance (Clear) Urine pH (5.0-8.0) Ur Specific Weiser (1.001-1.035) Urine Protein (Negative) Urine Glucose (UA) (Negative) Urine Ketones (Negative) Urine Blood (Negative) Urine Nitrite (Negative) Urine Bilirubin (Negative) Urine Urobilinogen (<2.0) mg/dL Ur Leukocyte Esterase (Negative) Urine RBC (0-5) /hpf Urine WBC (0-5) /hpf Ur Squamous Epith Cells (0-4) /hpf Hyaline Casts (0-2) /lpf Urine Mucus (None) /hpf 11/10/23 11/10/23 11/11/23 Range/Units 23:44 23:44 00:06 WBC (3.8-10.6) k/uL RBC (3.80-5.40) m/uL Hgb (11.4-16.0) gm/dL Hct (34.0-46.0) % MCV (80.0-100.0) fL MCH (25.0-35.0) pg MCHC (31.0-37.0) g/dL RDW (11.5-15.5) % Plt Count (150-450) k/uL MPV Neutrophils % % Lymphocytes % % Monocytes % % Eosinophils % % Basophils % % Neutrophils # (1.3-7.7) k/uL Lymphocytes # (1.0-4.8) k/uL Monocytes # (0-1.0) k/uL Eosinophils # (0-0.7) k/uL Basophils # (0-0.2) k/uL Sodium (137-145) mmol/L Potassium (3.5-5.1) mmol/L Chloride (98-107) mmol/L Carbon Dioxide (22-30) mmol/L Anion Gap mmol/L BUN (7-17) mg/dL Creatinine (0.52-1.04) mg/dL Est GFR (CKD-EPI)AfAm (>60 ml/min/1.73 sqM) Est GFR (CKD-EPI)NonAf (>60 ml/min/1.73 sqM) Glucose (74-99) mg/dL Lactic Ac Sepsis Rflx Y Plasma Lactic Acid Shahid (0.7-2.0) mmol/L Calcium (8.4-10.2) mg/dL Total Bilirubin (0.2-1.3) mg/dL AST (14-36) U/L ALT (4-34) U/L Alkaline Phosphatase (38-126) U/L Troponin I <0.012 (0.000-0.034) ng/mL Total Protein (6.3-8.2) g/dL Albumin (3.5-5.0) g/dL Amylase (30-110) U/L Lipase (23-300) U/L Urine Color Yellow Urine Appearance Clear (Clear) Urine pH 6.0 (5.0-8.0) Ur Specific Weiser 1.024 (1.001-1.035) Urine Protein Trace H (Negative) Urine Glucose (UA) Negative (Negative) Urine Ketones 1+ H (Negative) Urine Blood Negative (Negative) Urine Nitrite Negative (Negative) Urine Bilirubin Negative (Negative) Urine Urobilinogen 2.0 (<2.0) mg/dL Ur Leukocyte Esterase Moderate H (Negative) Urine RBC 1 (0-5) /hpf Urine WBC 8 H (0-5) /hpf Ur Squamous Epith Cells 2 (0-4) /hpf Hyaline Casts 1 (0-2) /lpf Urine Mucus Few H (None) /hpf Disposition Clinical Impression: Bowel obstruction, Hernia Disposition: ADMITTED IP TO THIS HOSP Condition: Fair Time of Disposition: 02:14
--- NOTE | 2023-11-11 01:16 | CT ---
EXAM: CT Abdomen and Pelvis With Intravenous Contrast CLINICAL HISTORY: ITS.REASON CT Reason: abdominal pain TECHNIQUE: Axial computed tomography images of the abdomen and pelvis with intravenous contrast. CTDI is 39.9 mGy and DLP is 1904.5 mGy-cm. This CT exam was performed using one or more of the following dose reduction techniques: automated exposure control, adjustment of the mA and/or kV according to patient size, and/or use of iterative reconstruction technique. COMPARISON: No relevant prior studies available. FINDINGS: Lung bases: Unremarkable. No mass. No consolidation. ABDOMEN: Liver: Unremarkable. No mass. Gallbladder and bile ducts: Unremarkable. No calcified stones. No ductal dilation. Pancreas: Unremarkable. No mass. No ductal dilation. Spleen: Unremarkable. No splenomegaly. Adrenals: Unremarkable. No mass. Kidneys and ureters: Unremarkable. No solid mass. No hydronephrosis. Stomach and bowel: Moderate small bowel obstruction secondary to loops of small bowel entering a right lower quadrant hernia. No free air. Moderate amount of stool within the colon. No mucosal thickening. PELVIS: Appendix: No findings to suggest acute appendicitis. Bladder: Unremarkable. No mass. Reproductive: Unremarkable as visualized. ABDOMEN and PELVIS: Intraperitoneal space: See above. Bones/joints: No acute fracture. No dislocation. Soft tissues: See above. Vasculature: Unremarkable. No abdominal aortic aneurysm. Lymph nodes: Unremarkable. No enlarged lymph nodes. IMPRESSION: Moderate small bowel obstruction secondary to right lower quadrant hernia.
[2023-11-11] MEDS ORDERED: KETOROLAC 15 MG/ML 1 ML VIAL IVP PRN (02:04)
[2023-11-11] MEDS ORDERED: MORPHINE SULFATE 4 MG/ML SYRINGE IV PRN (02:04)
[2023-11-11] MEDS ORDERED: NALOXONE 0.4 MG/ML 1 ML VIAL IV PRN (02:04)
[2023-11-11] MEDS ORDERED: ONDANSETRON 4 MG/2 ML VIAL IVP PRN (02:04)
[2023-11-11] MEDS: SODIUM CHLORIDE 0.9% 1,000 ML IV SCH (02:58)
[2023-11-11] MEDS: metroNIDAZOLE-NS PMX 500 MG in SALINE 1 100ML.BAG IVPB STA (02:59)
[2023-11-11] MEDS: cefTRIAXone IN SWFI 1,000 MG/10 ML SYRINGE IVP STA (03:07)
[2023-11-11] MEDS: SODIUM CHLORIDE 0.9% 1,000 ML IV ONE (05:00)
--- NOTE | 2023-11-11 12:37 | P.GSHP ---
History of Present Illness H&P Date: 11/11/23 CHIEF COMPLAINT: Abdominal pain HISTORY OF PRESENT ILLNESS: This is a 72-year-old female who presented with abdominal pain that started yesterday. Patient was having severe nausea no vomiting. Patient reports pain across the middle of her abdomen. Patient has had prior bowel obstructions. She has had prior hernia surgeries. She has required a bowel resection for her bowel obstructions at [facility]. In June 2022 patient had a incarcerated incisional hernia with small bowel obstr uction and required exploratory laparotomy with lysis of adhesions and repair of incarcerated incisional hernia. Patient did have 2 liquidy bowel movements. Pain is slightly improved. She had a CT scan of the abdomen pelvis which has shown moderate small bowel obstruction secondary to right lower quadrant hernia. Patient currently has NG tube in place. She does report improvement in her discomfort with the placement of the NG tube. Other surgical history includes cholecystectomy and PAST MEDICAL HISTORY: hypertension, Thyroid Disorder, bowel obstruction, hernia PAST SURGICAL HISTORY: Section, Cholecystectomy, Hernia Repair MEDICATIONS: See below ALLERGIES: See below SOCIAL HISTORY: No illicit drug use. REVIEW OF SYSTEMS: CONSTITUTIONAL: Denies fever or chills. HEENT: Denies blurred vision, vision changes, or eye pain. Denies hemoptysis CARDIOVASCULAR: Denies chest pain or pressure. RESPIRATORY: No shortness of breath. GASTROINTESTINAL: See HPI for pertinent findings HEMATOLOGIC: Denies bleeding disorders. GENITOURINARY: Denies any blood in urine or increased urinary frequency. SKIN: Denies pruitis. Denies rash. PHYSICAL EXAM: VITAL SIGNS: Reviewed GENERAL: Well-developed in no acute distress. HEENT: No sclera icterus. Extraocular movements grossly intact. Moist buccal mucosa. Head is atraumatic, normocephalic. No nasal drainage. ABDOMEN: Soft. Obese. Nondistended. Tenderness with palpation across the mid abdomen. There is a ventral hernia bulge when sitting forward. It is reducible on exam. Old midline incision is healed NEUROLOGIC: Alert and oriented. Cranial nerves II through XII grossly intact. LABORATORY DATA: WBC 12 Hgb 16.8 platelets 314 Sodium 130 potassium 4.2 creatinine 0.57 Lactic acid 2.3-1.7 Total bilirubin 1.5 AST 89 ALT 74 alk phos 125 lipase 65 IMAGING: CT scan abdomen pelvis moderate small bowel obstruction secondary to right lower quadrant hernia ASSESSMENT: 1. Small bowel obstruction secondary to right lower quadrant hernia noted on CT 2. Prior history of small bowel obstructions requiring surgical intervention 3. Multiple abdominal surgeries PLAN: -Continue NG tube for decompression -Keep patient n.p.o. -Continue IV fluids -Repeat CBC -Continue antibiotics -Patient is tentatively scheduled for repair of incarcerated ventral hernia today. Further recommendations forthcoming per surgeon Physician Coating Inspector note has been reviewed by physician. Signing provider agrees with the documented findings, assessment, and plan of care. Past Medical History Past Medical History: Hypertension, Thyroid Disorder Additional Past Medical History / Comment(s): Hernias History of Any Multi-Drug Resistant Organisms: None Reported Past Surgical History: Section, Cholecystectomy, Hernia Repair Additional Past Surgical History / Comment(s): thyroidectomy Past Anesthesia/Blood Transfusion Reactions: No Reported Reaction Past Psychological History: No Psychological Hx Reported Smoking Status: Never smoker Past Alcohol Use History: None Reported Past Drug Use History: None Reported Medications and Allergies Home Medications Medication Instructions Recorded Confirmed Type Cholecalciferol [Vitamin D3 (25 50 mcg PO DAILY 07/17/22 11/11/23 History Mcg = 1000 Iu)] Levothyroxine Sodium [Euthyrox] 137 mcg PO DAILY 07/17/22 11/11/23 History Lisinopril-Hctz 10-12.5 mg 1 tab PO DAILY 07/17/22 11/11/23 History [Zestoretic 10-12.5] atenoloL [Tenormin] 25 mg PO BID 07/17/22 11/11/23 History Allergies Allergy/AdvReac Type Severity Reaction Status Date / Time Penicillins Allergy Unknown Verified 11/11/23 06:54 Sulfa (Sulfonamide Allergy Unknown Verified 11/11/23 06:54 Antibiotics) Surgical - Exam Vital Signs Temp Pulse Resp BP Pulse Ox 97.6 F 96 18 127/83 94 L 11/10/23 23:26 11/10/23 23:26 11/10/23 23:26 11/10/23 23:26 11/10/23 23:26 Results - Labs 11/10/23 23:44 11/10/23 23:44 Abnormal Lab Results - Last 24 Hours (Table) 11/10/23 11/10/23 11/10/23 Range/Units 23:44 23:44 23:44 WBC 12.0 H (3.8-10.6) k/uL RBC 5.70 H (3.80-5.40) m/uL Hgb 16.8 H (11.4-16.0) gm/dL Hct 52.0 H (34.0-46.0) % Neutrophils # 10.0 H (1.3-7.7) k/uL BUN 20 H (7-17) mg/dL Glucose 183 H (74-99) mg/dL Plasma Lactic Acid Shahid 2.1 H* (0.7-2.0) mmol/L Calcium 10.4 H (8.4-10.2) mg/dL Total Bilirubin 1.5 H (0.2-1.3) mg/dL AST 89 H (14-36) U/L ALT 74 H (4-34) U/L Urine Protein (Negative) Urine Ketones (Negative) Ur Leukocyte Esterase (Negative) Urine WBC (0-5) /hpf Urine Mucus (None) /hpf 11/10/23 11/11/23 Range/Units 23:44 02:49 WBC (3.8-10.6) k/uL RBC (3.80-5.40) m/uL Hgb (11.4-16.0) gm/dL Hct (34.0-46.0) % Neutrophils # (1.3-7.7) k/uL BUN (7-17) mg/dL Glucose (74-99) mg/dL Plasma Lactic Acid Shahid 2.3 H* (0.7-2.0) mmol/L Calcium (8.4-10.2) mg/dL Total Bilirubin (0.2-1.3) mg/dL AST (14-36) U/L ALT (4-34) U/L Urine Protein Trace H (Negative) Urine Ketones 1+ H (Negative) Ur Leukocyte Esterase Moderate H (Negative) Urine WBC 8 H (0-5) /hpf Urine Mucus Few H (None) /hpf Diabetes panel 11/10/23 Range/Units 23:44 Sodium 138 (137-145) mmol/L Potassium 4.2 (3.5-5.1) mmol/L Chloride 106 (98-107) mmol/L Carbon Dioxide 24 (22-30) mmol/L BUN 20 H (7-17) mg/dL Creatinine 0.57 (0.52-1.04) mg/dL Glucose 183 H (74-99) mg/dL Calcium 10.4 H (8.4-10.2) mg/dL AST 89 H (14-36) U/L ALT 74 H (4-34) U/L Alkaline Phosphatase 125 (38-126) U/L Total Protein 7.3 (6.3-8.2) g/dL Albumin 4.5 (3.5-5.0) g/dL Calcium panel 11/10/23 Range/Units 23:44 Calcium 10.4 H (8.4-10.2) mg/dL Albumin 4.5 (3.5-5.0) g/dL Pituitary panel 11/10/23 Range/Units 23:44 Sodium 138 (137-145) mmol/L Potassium 4.2 (3.5-5.1) mmol/L Chloride 106 (98-107) mmol/L Carbon Dioxide 24 (22-30) mmol/L BUN 20 H (7-17) mg/dL Creatinine 0.57 (0.52-1.04) mg/dL Glucose 183 H (74-99) mg/dL Calcium 10.4 H (8.4-10.2) mg/dL Adrenal panel 11/10/23 Range/Units 23:44 Sodium 138 (137-145) mmol/L Potassium 4.2 (3.5-5.1) mmol/L Chloride 106 (98-107) mmol/L Carbon Dioxide 24 (22-30) mmol/L BUN 20 H (7-17) mg/dL Creatinine 0.57 (0.52-1.04) mg/dL Glucose 183 H (74-99) mg/dL Calcium 10.4 H (8.4-10.2) mg/dL Total Bilirubin 1.5 H (0.2-1.3) mg/dL AST 89 H (14-36) U/L ALT 74 H (4-34) U/L Alkaline Phosphatase 125 (38-126) U/L Total Protein 7.3 (6.3-8.2) g/dL Albumin 4.5 (3.5-5.0) g/dL
--- NOTE | 2023-11-11 12:38 | XR ---
EXAMINATION TYPE: XR chest 1V portable DATE OF EXAM: 11/11/2023 Comparison: 07/17/2022 Clinical History: 72-year-old female CHF Findings: NG tube courses below the diaphragm. Heart upper limits of normal in size. Asymmetric elevation right hemidiaphragm. Mild interstitial prominence is unchanged. No consolidation or pleural effusion. Impression: Borderline heart size. Similar eventration right hemidiaphragm. Mild interstitial prominence is uncha nged.
[2023-11-11 13:31] LABS: African American GFR (CKD) >90 (>60 ml/min/1.73 sqM); Anion Gap 7 mmol/L; Blood Urea Nitrogen 15 mg/dL (7-17); Calcium 9.1 mg/dL (8.4-10.2); Carbon Dioxide 24 mmol/L (22-30); Chloride 109 mmol/L (98-107); Glucose 111 mg/dL (74-99); Non-African American GFR(CKD) >90 (>60 ml/min/1.73 sqM); Sodium 140 mmol/L (137-145)
[2023-11-11] MEDS: HEPARIN SODIUM,PORCINE 5,000 UNIT/ML 1 ML VIAL SQ SCH (15:11)
[2023-11-11 16:01] LABS: Basophils # (A) 0.1 k/uL (0-0.2); Basophils % (A) 1 %; Eosinophils # (A) 0.1 k/uL (0-0.7); Eosinophils % (A) 1 %; HCT 46.9 % (34.0-46.0); HGB 14.9 gm/dL (11.4-16.0); Lymphocytes # (A) 1.9 k/uL (1.0-4.8); Lymphocytes % (A) 22 %; MCH 29.8 pg (25.0-35.0); MCHC 31.7 g/dL (31.0-37.0); MCV 93.9 fL (80.0-100.0); Mean Platelet Volume 8.2; Monocytes # (A) 0.5 k/uL (0-1.0); Monocytes % (A) 6 %; Neutrophils # (A) 5.9 k/uL (1.3-7.7); Neutrophils % (A) 69 %; Platelet Count 248 k/uL (150-450); RDW 14.5 % (11.5-15.5); WBC 8.6 k/uL (3.8-10.6)
[2023-11-11] MEDS: PANTOPRAZOLE 40 MG/10 ML VIAL IVP SCH (16:09)
[2023-11-11] MEDS: IOPAMIDOL CONTRAST (ORAL USE) VIAL PO PRN (16:10)
--- NOTE | 2023-11-11 18:29 | CT ---
EXAMINATION TYPE: CT abdomen pelvis wo con DATE OF EXAM: 11/11/2023 COMPARISON: 11/11/2023 HISTORY: abdominal pain, follow up on SBO CT DLP: 1287.4 mGycm Automated exposure control for dose reduction was used. TECHNIQUE: Helical acquisition of images was performed from the lung bases through the pelvis. FINDINGS: The lung bases are clear. There is an NG tube within the stomach. There is surgical absent gallbladder. There is no organomegaly involving liver, pancreas, spleen or a drenal glands. Contrast has been provided in the interval since the prior study but there's been no change in the di lated small bowel loops within the anterior abdominal hernia. Contrast is seen within nondilated dist al small bowel loops. There is no contrast at this point within the colon. The findings are consisten t with a partial bowel obstruction secondary to the anterior wall hernia. There is no free intraperitoneal air or fluid. There is a tiny cleo like calcification left kidney but there is no hydronephrosis. The caliber of t he abdominal aorta is normal. No pelvic mass, free fluid, abscess or adenopathy. The osseous structures are intact. IMPRESSION: Partial bowel obstruction secondary to bowel within a large anterior abdominal wall hernia. No change compared to the prior study. There is an NG tube within the stomach.
--- NOTE | 2023-11-11 20:00 | CONS ---
CONSULTATION REASON FOR CONSULTATION: Advice regarding hypertension, other medical issues requested by Surgery. HISTORY OF PRESENT ILLNESS: This is a 72-year-old woman with a past medical history of hypertension, hypothyroidism, cholecystectomy, was admitted with abdominal pain with small bowel obstruction possibly secondary to hernia. The patient had NG tube inserted. Dr. Quiroga is following the patient closely. There is no history of any fever, rigors, or chills. White count is elevated. The patient is started on empiric antibiotics. PAST MEDICAL HISTORY: Reviewed include hypertension, rest of the history and rest of the chart is also reviewed. HOME MEDICATIONS: Reviewed include atenolol, doses and rest of medications reviewed. ALLERGIES: Penicillin. FAMILY HISTORY: No history of heart disease or strokes in the family. SOCIAL HISTORY: No history of smoking or alcohol. REVIEW OF SYSTEMS: Fourteen-point review is negative except as mentioned earlier. PHYSICAL EXAMINATION: VITAL SIGNS: Pulse is 89, blood pressure 118/60, respirations 20. HEENT: Conjunctivae normal. NECK: No JVD. CARDIOVASCULAR: S1, S2. No murmur. RESPIRATIONS: A few scattered rhonchi. ABDOMEN: Soft, obese. Mild diffuse discomfort. NG tube in situ. Bowel sounds diminished. No ascites. No guarding. No rigidity. LEGS: No edema. No swelling. NERVOUS SYSTEM: Nonfocal. SKIN: No ulcer, rash, bleeding. JOINTS: No active deforming arthropathy. LABORATORY DATA: WBC 12, and lactic acid 2.0. Rest of the labs are noted. ASSESSMENT: 1. Abdominal pain with possible small bowel obstruction secondary to hernia. 2. Elevated WBC. 3. Hypertension. 4. Hypothyroidism. 5. History of cholecystectomy. 6. History of hernia repair. RECOMMENDATIONS AND DISCUSSION: This is a 72-year-old woman, who presented with multiple complex medical issues, we will monitor the patient closely. I would recommend empiric antibiotics. Follow the cultures. DVT prophylaxis. Proton pump inhibitors. We will resume the home medications once the patient is p.o. and we will monitor blood pressure closely. Continue to monitor. Further recommendations to follow. See orders for further details. MMODL / IJN: [id number] /
[2023-11-12 11:28] LABS: Blood Urea Nitrogen 8.7 mg/dL (9.0-27.0); Glucose 102 mg/dL (70-110)
[2023-11-12 11:29] LABS: ALT 44 U/L (8-44); AST 26 U/L (13-35); Albumin 3.4 g/dL (3.8-4.9); Albumin/Globulin Ratio 1.89 Ratio (1.60-3.17); Alkaline Phosphatase 84 U/L (41-126); Calcium 8.6 mg/dL (8.7-10.3); Carbon Dioxide 23.4 mmol/L (21.6-31.8); Chloride 109 mmol/L (96-109); Globulin 1.8 g/dL (1.6-3.3); Potassium 3.7 mmol/L (3.5-5.5); Sodium 141 mmol/L (135-145); Total Bilirubin 0.7 mg/dL (0.3-1.2); Total Protein 5.2 g/dL (6.2-8.2)
[2023-11-12 11:44] LABS: Basophils # (A) 0.02 X 10*3/uL (0.00-0.10); Basophils % (A) 0.3 %; Eosinophils # (A) 0.15 X 10*3/uL (0.04-0.35); Eosinophils % (A) 2.4 %; HCT 44.9 % (37.2-46.3); HGB 13.9 g/dL (12.0-15.0); Lymphocytes # (A) 1.82 X 10*3/uL (0.90-5.00); Lymphocytes % (A) 28.7 %; MCH 29.2 pg (27.0-32.0); MCV 94.3 FL (80.0-97.0); Mean Platelet Volume 10.7 FL (9.5-12.2); Monocytes # (A) 0.47 X 10*3/uL (0.20-1.00); Monocytes % (A) 7.4 %; NRBC Per 100 WBC 0 X 10*3/uL (0.00-0.01); Neutrophils # (A) 3.86 X 10*3/uL (1.80-7.70); Neutrophils % (A) 60.9 %; Platelet Count 216 X 10*3/uL (140-440); RBC 4.76 X 10*6/uL (4.10-5.20); RDW 14.9 % (11.5-14.5); WBC 6.34 X 10*3/uL (4.50-10.00)
--- NOTE | 2023-11-12 12:51 | P.PN ---
Subjective Progress Note Date: 11/12/23 CHIEF COMPLAINT: Partial small bowel obstruction HISTORY OF PRESENT ILLNESS: Patient had multiple bowel movements yesterday. Her pain is improved. She does report some soreness across the abdomen. Denies any nausea or vomiting. She tolerated full liquids. CT scan abdomen pelvis partial bowel obstruction secondary to bowel within the large anterior abdominal wall hernia. No change compared to prior study. Afebrile. WBC 6.34 PHYSICAL EXAM: VITAL SIGNS: Reviewed. GENERAL: Well-developed in no acute distress. HEENT: No sclera icterus. Extraocular movements grossly intact. Moist buccal mucosa. Head is atraumatic, normocephalic. ABDOMEN: Soft. Nondistended. Ventral hernia. Nontender with palpation reducible. NEUROLOGIC: Alert and oriented. Cranial nerves II through XII grossly intact. ASSESSMENT: 1. Small bowel obstruction. CT scan report small bowel obstruction secondary to bowel within the large anterior abdominal wall hernia PLAN: -Continue full liquid diet -Encourage patient to ambulate -Continue supportive care Physician Animal Behaviorist note has been reviewed by physician. Signing provider agrees with the documented findings, assessment, and plan of care. Objective - Vital Signs Vital signs: Vital Signs Temp 97.5 F L 11/12/23 07:20 Pulse 66 11/12/23 07:20 Resp 16 11/12/23 07:20 BP 123/75 11/12/23 07:20 Pulse Ox 94 L 11/12/23 07:20 FiO2 Intake & Output 11/11/23 11/12/23 11/12/23 18:59 06:59 18:59 Intake Total 1450 Balance 1450 Weight 90.718 kg Intake: Intake, IV Titration 1450 Amount Sodium Chloride 0.9% 1, 1450 000 ml @ 75 mls/hr IV . [id number] [facility] Rx#:[id number] Other: Voiding Method Toilet Toilet Toilet # Voids 1 2 # Bowel Movements 1 - Labs CBC & Chem 7: 11/12/23 05:26 11/12/23 05:26 Labs: Abnormal Lab Results - Last 24 Hours (Table) 11/11/23 11/11/23 11/12/23 Range/Units 12:31 15:36 05:26 Hct 46.9 H (34.0-46.0) % MCHC 31.0 L (32.0-37.0) g/dL RDW 14.9 H (11.5-14.5) % Chloride 109 H (98-107) mmol/L BUN (9.0-27.0) mg/dL Creatinine 0.51 L (0.52-1.04) mg/dL Glucose 111 H (74-99) mg/dL Calcium (8.7-10.3) mg/dL Total Protein (6.2-8.2) g/dL Albumin (3.8-4.9) g/dL 11/12/23 Range/Units 05:26 Hct (34.0-46.0) % MCHC (32.0-37.0) g/dL RDW (11.5-14.5) % Chloride (98-107) mmol/L BUN 8.7 L (9.0-27.0) mg/dL Creatinine 0.5 L (0.52-1.04) mg/dL Glucose (74-99) mg/dL Calcium 8.6 L (8.7-10.3) mg/dL Total Protein 5.2 L (6.2-8.2) g/dL Albumin 3.4 L (3.8-4.9) g/dL
--- NOTE | 2023-11-12 21:58 | PN ---
PROGRESS NOTE DATE OF SERVICE: 11/12/2023 SUBJECTIVE: This is a 72-year-old woman who was admitted with possibly small-bowel obstruction, is on medical treatment. Repeat CAT scan was reviewed and had some large anterior abdominal hernia. NG tube was removed. OBJECTIVE: VITAL SIGNS: Pulse is 66, blood pressure 123/75, and respirations 16. CHEST: Clear to auscultation. CARDIOVASCULAR: S1, S2. ABDOMEN: Soft, obese, nontender. LABORATORY DATA: Reviewed. ASSESSMENT: 1. Abdominal pain with possible small bowel obstruction secondary to large abdominal wall hernia. 2. Elevated WBC, improved. 3. Hypertension. 4. Hypothyroidism. 5. History of cholecystectomy. 6. History of hernia repair. RECOMMENDATIONS: Recommended to continue current management, continue symptomatic treatment, otherwise closely follow with surgery. Repeat labs will be ordered and further recommendations to follow. MMTHOMASL / IJN: [id number] /
[2023-11-13 11:07] LABS: Basophils # (A) 0.03 X 10*3/uL (0.00-0.10); Basophils % (A) 0.5 %; Eosinophils # (A) 0.13 X 10*3/uL (0.04-0.35); Eosinophils % (A) 2.3 %; HGB 13.7 g/dL (12.0-15.0); Lymphocytes # (A) 1.53 X 10*3/uL (0.90-5.00); Lymphocytes % (A) 27.6 %; MCH 29.5 pg (27.0-32.0); MCHC 31.9 g/dL (32.0-37.0); MCV 92.5 FL (80.0-97.0); Mean Platelet Volume 10.7 FL (9.5-12.2); Monocytes # (A) 0.38 X 10*3/uL (0.20-1.00); Monocytes % (A) 6.8 %; NRBC Per 100 WBC 0 X 10*3/uL (0.00-0.01); Neutrophils # (A) 3.46 X 10*3/uL (1.80-7.70); Neutrophils % (A) 62.4 %; Platelet Count 205 X 10*3/uL (140-440); RBC 4.65 X 10*6/uL (4.10-5.20); RDW 14.6 % (11.5-14.5); WBC 5.55 X 10*3/uL (4.50-10.00)
[2023-11-13 12:30] LABS: Blood Urea Nitrogen 4.6 mg/dL (9.0-27.0); Calcium 9.2 mg/dL (8.7-10.3); Carbon Dioxide 24.6 mmol/L (21.6-31.8); Chloride 108 mmol/L (96-109); Glucose 114 mg/dL (70-110); Potassium 3.9 mmol/L (3.5-5.5); Sodium 142 mmol/L (135-145)
--- NOTE | 2023-11-13 13:33 | PN ---
PROGRESS NOTE DATE OF SERVICE: 11/13/2023 SUBJECTIVE: This is a 72-year-old woman who was admitted with abdominal pain, possibly bowel obstruction secondary to hernia is improving. No chest pain, no palpitations, no fever. OBJECTIVE: VITAL SIGNS: Pulse 73, blood pressure 130/70, respirations 18. CHEST: Clear to auscultation. ABDOMEN: Soft. Otherwise, abdominal hernia present. LABORATORY DATA: Reviewed. ASSESSMENT: 1. Abdominal pain with possible small bowel obstruction secondary to large abdominal wall hernia. 2. Elevated WBC, improved. 3. Hypertension. 4. Hypothyroidism. 5. History of cholecystectomy. 6. History of hernia repair. RECOMMENDATIONS: Recommended to continue current management, continue symptomatic treatment, otherwise repeat labs closely, follow with cultures are negative so far. Antibiotics continue to monitor. Further recommendations to follow. MMODL / IJN: [id number] /
[2023-11-13 13:47] VITALS: BP 145/79; PULSE 65; RESP 20; TEMP 98.4
--- NOTE | 2023-11-13 15:53 | P.DS ---
Providers Date of admission: 11/11/23 02:46 Expected date of discharge: 11/13/23 Attending physician: Ike Quiroga Consults: 11/11/23 10:38 Consult Physician Routine Consulting Provider: Luz Loving Consult Reason/Comments: medical managment Do you want consulting provider notified?: Yes Primary care physician: Sal Zapien [facility] Course: Discharge diagnosis 1. Small bowel obstruction secondary to bowel within large anterior abdominal wall hernia managed conservatively Hospital course This is a 72-year-old female who presented with abdominal pain. She had a CT s can of the abdomen pelvis which has shown moderate small bowel obstruction secondary to right lower quadrant hernia. Patient had NG tube placed. She was managed conservatively for small bowel obstruction. She did open up. She started having bowel movements. NG tube was removed. She has tolerated full liquid diet. Pain is improved. She is afebrile. She is ambulating. She is stable for discharge. Patient will continue on a full liquid diet after discharge until seen by surgeon in office. Physician Geothermal Technician note has been reviewed by physician. Signing provider agrees with the documented findings, assessment, and plan of care. Patient Condition at Discharge: Stable Plan - Discharge Summary Discharge Rx Participant: No New Discharge Prescriptions: Continue Levothyroxine Sodium [Euthyrox] 137 mcg PO DAILY atenoloL [Tenormin] 25 mg PO BID Lisinopril-Hctz 10-12.5 mg [Zestoretic 10-12.5] 1 tab PO DAILY Cholecalciferol [Vitamin D3 (25 Mcg = 1000 Iu)] 50 mcg PO DAILY Discharge Medication List Cholecalciferol [Vitamin D3 (25 Mcg = 1000 Iu)] 50 mcg PO DAILY 07/17/22 [History] Levothyroxine Sodium [Euthyrox] 137 mcg PO DAILY 07/17/22 [History] Lisinopril-Hctz 10-12.5 mg [Zestoretic 10-12.5] 1 tab PO DAILY 07/17/22 [History] atenoloL [Tenormin] 25 mg PO BID 07/17/22 [History] Follow up Appointment(s)/Referral(s): Sal Zapien MD [Primary Care Provider] - 11/19/23 11:20 am Ike Quiroga MD [STAFF PHYSICIAN] - 11/20/23 9:40 am Patient Instructions/Handouts: Full Liquid Diet (DC) Activity/Diet/Wound Care/Special Instructions: Continue full liquid diet until seen by surgeon in office Discharge Disposition: HOME SELF-CARE
--- NOTE | 2023-11-15 12:41 | CDI ---
Documentation Clarification Form Date: 11/15/2023 12:17:16 PM From: Susana Cárdenas RN, CCDS Email: [email or web address] Admit Date: 11/11/2023 02:46:00 AM Patient Name: Claude Pink Visit Number: [id number] Discharge Date: 11/13/2023 03:23:00 PM ATTENTION: The Clinical Documentation Specialists (CDI) and [facility] Coding Staff appreciate your assistance in clarifying documentation. Please respond to the clarification below the line at the bottom and electronically sign. The CDI & [facility] Coding staff will review the response and follow-up if needed. Please note: Queries are made part of the Legal Health Record. If you have any questions, please contact the author of this message via ITS. Dr. Luz Loving The patient had a small bowel obstruction and elevated lactic acid. Based on this information and the findings below, is there an additional diagnosis that is clinically appropriate for this patient? Patient history/risk factors: HTN, thyroid disorder, prior incarcerated incisional hernia with small obstruction. Presented with abdominal pain and nausea. Admitted with small bowel obstruction secondary to hernia. Clinical Indicators: 11/10 lactic acid: 2.1 11/11 lactic acid: 2.3-1.7 11/11 AXR: moderate small bowel obstruction 11/01 right lower quadrant hernia 11/11 CT A/P: Partial bowel obstruction secondary to bowel within a large anterior abdominal wall hernia. No change compared to the prior study. There is an NG tube within the stomach. H&P: "Small bowel obstruction secondary to right lower quadrant hernia noted on CT." Treatment: monitor lactic acid level; 1L 0.9 NS IV bolus on 11/10 and 11/11; 0.9 NS @75mL/hr 11/11-11/13 Is there an additional diagnosis that is clinically appropriate for this patient? [ x ] Lactic acidosis likely secondary to bowel obstruction [ ] No additional diagnosis/Not clinically significant [ ] Unable to determine [ ] Other, please specify MTDD
== END 2023-11-13 15:23 | disposition home or self-care (01) | DRG 394 ==
LOC: EC 23:24 → 4SSUR 11-11 02:46
PROVIDERS: ADMIT Surgery; ATTEND Surgery
PROC: 0D9670Z Drainage of Stomach with Drainage Device, Via Natural or Artificial Opening (ICD-10-PCS; principal; 2023-11-11)
DX: K43.6 Other and unspecified ventral hernia with obstruction, without gangrene (principal); E87.20 Acidosis, unspecified; E03.9 Hypothyroidism, unspecified; I10 Essential (primary) hypertension; Z79.890 Hormone replacement therapy; Z90.49 Acquired absence of other specified parts of digestive tract; Z88.0 Allergy status to penicillin; Z88.2 Allergy status to sulfonamides; Z79.899 Other long term (current) drug therapy; Z90.710 Acquired absence of both cervix and uterus
CPT/HCPCS: 36415; 71045; 74176; 74177; 80048; 80053; 81001; 82150; 83605; 83690; 84484; 85025; 93005; 96361; 96365; 96375; 99285

== ENCOUNTER → 2024-03-20 | Outpatient (CLI) | payer MEDICARE ==
--- NOTE | 2024-03-23 13:56 | MM ---
Reason for Exam: Screening (asymptomatic). Last screening mammogram was performed 12 month(s) ago. Patient History: Menarche at age 11. First Full-Term at age 31. Late child-bearing (after 31). Left ovary removed at age 33. Right ovary removed at age 33. Hysterectomy at age 33. Postmenopausal. Estrogen for 20 years from age 33 until age 53. Progesterone for 20 years from age 33 until age 53. Mother had breast cancer. Risk Values: Maida 5 year model risk: 3.9%. NCI Lifetime model risk: 9.9%. Prior Study Comparison: 07/29/2019 Bilateral Screening Mammogram, [facility]. 01/31/2021 Bilateral Screening Mammogram, [facility]. 03/19/2023 Bilateral MG 3D screening mammo w/cad, [facility]. Tissue Density: The breasts are almost entirely fatty. Findings: Analyzed By CAD. Right breast: There is no suspicious group of microcalcifications or new suspicious mass. Benign-appearing calcifications right breast. Left breast: There is no suspicious group of microcalcifications or new suspicious mass. Benign-appearing calcifications left breast. Overall Assessment: Benign, BI-RAD 2 Management: Screening Mammogram of both breasts in [address] [facility] will attempt to contact patient to return for supplemental views and ultrasound if indicated. Patient should continue monthly self-breast exams. A clinical breast exam by your physician is recommended on an annual basis. This exam should not preclude additional follow-up of suspicious palpable abnormalities. Note on Maida scores and lifetime risk: 1. A Maida score greater than 3% is considered moderate risk. If this is the case, consider specialist referral to assess eligibility for a risk reducing agent. 2. If overall lifetime risk for the development of breast cancer is 20% or higher, the patient may qualify for future screening with alternating mammogram and breast MRI. Electronically signed and approved by: Lester Wright DO
== END | disposition home or self-care (01) ==
LOC: RADMAMWWP 09:37
PROVIDERS: ATTEND Family Medicine
DX: Z12.31 Encounter for screening mammogram for malignant neoplasm of breast (principal); Z78.0 Asymptomatic menopausal state; Z80.3 Family history of malignant neoplasm of breast
CPT/HCPCS: 77063; 77067